=== PATIENT | female | born 1930 | race Caucasian/White ===

== ENCOUNTER → 2016-07-24 | Outpatient (CLI) | payer OTHER | LOC: FIMAGING 16:01 | DX: Z12.31 Encounter for screening mammogram for malignant neoplasm of breast (principal) | CPT/HCPCS: G0202 ==

== ENCOUNTER → 2017-03-12 | Outpatient (CLI) | payer OTHER | LOC: BMCIMAGING 13:38 | PROVIDERS: ATTEND Internal Medicine | DX: Z13.820 Encounter for screening for osteoporosis (principal); M81.0 Age-related osteoporosis without current pathological fracture ==

== ENCOUNTER 2017-04-04 07:46 | Inpatient (IN) | payer OTHER ==
[2017-04-04] MEDS ORDERED: NS 500 ML IV ONE (07:52)
[2017-04-04] MEDS ORDERED: MIDAZOLAM 2 MG/2 ML VIAL IVP ONE (07:52)
[2017-04-04] MEDS ORDERED: ATROPINE SULFATE 1 MG/10 ML SYR IVP ONE (07:52)
[2017-04-04] MEDS ORDERED: fentaNYL 100 MCG/2 ML INJ IVP ONE (07:52)
[2017-04-04] MEDS ORDERED: BENZOCAINE UNIT DOSE SPRAY HURRICAINE MM ONE (07:52)
--- NOTE | 2017-04-04 08:32 | CPEKG ---
Heart Rate: 101 RR Interval: 594 P-R Interval: 188 QRSD Interval: 86 QT Interval: 344 QTC Interval: 446 P [place]: 29 QRS [place]: 65 T Wave [place]: 27 EKG Severity - ABNORMAL ECG - EKG Impression: SINUS TACHYCARDIA EKG Impression: MULTIPLE VENTRICULAR PREMATURE COMPLEXES Electronically Signed By: Chetan Ochoa 04-Apr-2017 16:02:07
--- NOTE | 2017-04-04 09:56 | EPPROC ---
Electrophysiology Procedure Note: Pt came to [facility] in SR and hence no CV was performed. However, due to her symptoms of SOA and fatigue, she is going to be admitted to the hospital. Patient Problems: Problems Problem Status Onset Pneumonia Active
[2017-04-04 10:11] LABS: PLATELET COUNT 209 10^3/uL (150-400)
[2017-04-04 10:15] LABS: INR 4.04 (0.83-1.16); PROTIME(PATIENT) 38.9 SEC (12.0-15.0)
--- NOTE | 2017-04-04 15:47 | ECHO ---
[email or web address] [address] Main: [phone] Fax: Transthoracic Echocardiogram Name: DAWSON CREWS MR#: [id number] Study Date: 04/04/2017 Study Time: 02:11 PM Date of : 1930 Age: 86 year(s) Height: 165.1 cm (65 in.) Weight: 68.04 kg (150 lb.) BSA: 1.75 m2 Gender: Female Examination: Limited Echo Indication: Tachycardia/SVT/SOB/fatigue Image Quality: Contrast: Requested by: Agustina Ralph BP: 140 mmHg/76 mmHg Heart Rate: Rhythm: Indication: Tachycardia/SVT/SOB/fatigue Procedure Staff Psychiatric Clinician: Shavon Gomez Physician: Chetan Ochoa Requesting Provider: Conclusions: The ejection fraction is estimated to be 65-70 %. The left atrium is moderately to severely dilated. Mild to moderate mitral regurgitation. The tricuspid valve appears normal. There is pericardial fat. Measurements: Chambers Valvular Assessment AV/MV Valvular Assessment TV/PV Normal Normal Normal Name Value Range Name Value Range Name Value Range EF Range: 65-70 % AV Vmax: 1.46 m/s (1 m/s-1.7 TR Vmax: 2.79 mm/s ( - ) m/s) TR PGmax: 31 mmHg ( - ) AV maxP mmHg ( - ) syst. PAP: 36 mmHg ( - ) Continued Measurements: Chambers Valvular Assessment TV/PV Name Value Name Value LADs: 4.2 cm CVP (est.): 5 mmHg LADs Lon.2 cm LA Area: 27.8 cm2 Findings: The ejection fraction is estimated to be 65-70 %. Left Atrium: The left atrium is moderately to severely dilated. Mitral Valve: Mild to moderate mitral regurgitation. Patient: DAWSON CREWS Study Date: 04/04/2017 Page 1 of 2 02:11 PM Tricuspid Valve: The tricuspid valve appears normal. Mild tricuspid regurgitation is present. Pericardium: There is pericardial fat. (No Signature Object) Patient: DAWSON CREWS Study Date: 04/04/2017 Page 2 of 2 02:11 PM [id number]
[2017-04-04] MEDS: SALSALATE 500 MG PO SCH ×2 (16:54→22:54)
[2017-04-04] MEDS ORDERED: Propylene Glycol/Peg 400 [Systane 0.3-0.4% Eye Drops] 1 DROP OP PRN (17:29)
[2017-04-04] MEDS ORDERED: FUROSEMIDE 20 MG/2 ML VIAL IVP ONE (18:09)
--- NOTE | 2017-04-04 18:16 | SOAPPROG ---
SOAP Progress Note Assessment/Plan: Assessment: Plan: 04/04/17 18:18 fatigue--likely multifactorial. Will diurese, cover for pneumonia, follow rhythm--await further cardiology input. She doesn't seem to tolerate diltiazem all that well. She is more muddled than baseline SVT--now sinus in 90's evidence of fluid overload--add iv lasix tonight, check BNP possible pneumonia--add ceftriaxone chronic pain, prior polio--continue with stable meds Subjective: The patient really feels poorly. Fatigue is quite limiting. She is short of breath. She has developed some level of cough over the past 1-2 days. No fever /chills. She has been symptomatic with tachycardia. She feels diltiazem makes her feel poorly. She was on digoxin for a dose or two perhaps 1 week ago. Her appetite is suppressed and has some nausea. She has had more edema over the past several days. It has been difficult to get into her shoes. She was set up from CV today, but was found to be in sinus rhythm at 101 bpm and the procedure was cancelled. She has been admitted for fatigue. Objective: Vital Signs Temp Pulse Resp BP Pulse Ox 36.7 C 82 16 127/69 H 92 04/04/17 16:09 04/04/17 16:09 04/04/17 16:09 04/04/17 16:09 04/04/17 16:09 Laboratory Results 04/04/17 09:50 04/04/17 09:50 04/03/17 04/04/17 04/05/17 05:59 05:59 05:59 Intake Total 575 Balance 575 PT 38.9 SEC (12.0-15.0) H 04/04/17 09:50 INR 4.04 (0.83-1.16) H 04/04/17 09:50 Gen: pleasant, tired, weak, somewhat muddled HEENT: she looks slightly anxious Lungs: slight wheeze, mild basilar crackles Heart: currently RRR in the 90's at bedside Abd + bs, soft NT, ND LE's 2+ with stockings on CXR with basilar haziness ECHO nl LV EF, LA enlargement CBC with left shift INR 4+ ICD10 Worksheet Patient Problems: Problems Problem Status Onset Pneumonia Active
[2017-04-04] MEDS ORDERED: ACETAMINOPHEN 325 MG TAB PO PRN (18:33)
[2017-04-04] MEDS ORDERED: PROMETHAZINE HCL 25 MG/ML INJ IVP PRN (18:33)
[2017-04-04] MEDS: oxyCODONE IR 5 MG TAB PO PRN ×2 (19:01→23:49)
[2017-04-04] MEDS: ATORVASTATIN CALCIUM 40 MG TAB PO SCH (19:38)
[2017-04-04] MEDS: TOLTERODINE TARTRATE 2 MG EXT REL CAP PO SCH (19:38)
[2017-04-04] MEDS: DILTIAZEM XR 240 MG CAP PO SCH (19:39)
--- NOTE | 2017-04-04 19:43 | GHP ---
[f rep st] HISTORY AND PHYSICAL DATE OF ADMISSION: 04/04/2017 REASON FOR ADMISSION: Profound fatigue, shortness of breath, concern for pneumonia and heart failure, rhythm disturbance. HISTORY OF PRESENT ILLNESS: Patient is an 86-year-old female who has been struggling with new tachycardia dating back approximately 10 days. She was found to have SVT at the office at the rate of approximately 130 nine days ago. She was started on diltiazem without significant initial improvement. Briefly , digoxin was added. There was some rate capture. This was stopped by Cardiology. Diltiazem was increased, yet she has remained somewhat symptomatic with tachycardia, fatigue, shortness of breath, and just generally feels terrible. She was scheduled for a cardioversion procedure today, was found to be in sinus rhythm at 101 beats per minute. The procedure was canceled given fatigue and concern for other processes going on. She was admitted. She has had consultation with Dr. Jose regarding her rhythm over the past several days. She denies fever or chills. She remits to profound weakness. She has developed a cough over the past day or 2. She has reduced appetite with some nausea. No vomiting. No new pains. She denies clear evidence of palpitations. She has had an increase in swelling and has had some difficulty getting her socks on. 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 Osteoporosis, depression, some short-term memory loss. Esophagitis, nocturnal hypoxemia on chronic oxygen, urinary incontinence, diaphragmatic hernia, sporadic hypertension, atherosclerosis by heart scan. CURRENT MEDICATIONS: Diltiazem has been 240 mg twice daily increased by Cardiology most recently, limited trial of digoxin which was discontinued a few days ago. Lisinopril was previously part of her medication profile. This has been stopped due to the addition of diltiazem. Amlodipine was also discontinued , Pepcid p.r.n. heartburn. She has had complications with cataracts and is using some eyedrops, flaxseed oil, docusate sodium p.r.n. constipation, MiraLAX p.r.n. constipation, q.6 months Prolia injections, atorvastatin 40 mg daily, Flonase 1-2 sprays per nostril p.r.n. nasal congestion. Tolterodine tartrate ER 4 mg daily, pantoprazole 40 mg daily for heartburn, salicylate 750 mg 1 tab three times daily for joint pain. Vitamin D replacement. Levothyroxine 75 mcg daily. Warfarin typically 2 mg 4 days per week, 3 mg 3 days per week, aged garlic, OxyContin 10 mg twice daily, oxycodone 5 mg 1 p.o. q.4 hours p.r.n. breakthrough pain. SURGICAL HISTORY: Ankle fusion 195, previous D and C. SOCIAL HISTORY: Nonsmoker and nondrinker. Lives with with some assistance from daughter in [place]. Mother and father are . ALLERGIES: Notable for curare and pineapple. Questionable sensitivity to penicillin and cephalosporins, but daughter does not recall any specific significant reaction. REVIEW OF SYSTEMS: Significant fatigue. No fever, chills. She does have intermittent headaches. These are not new. She has had challenge with the right eye after cataract challenges. No acute dry mouth or sore throat. No ear pain. No nasal stuffiness. LUNGS: She admits to increased shortness of breath with new cough. HEART: Rhythm issues as per HPI. No chest pain. No palpitations. GI reduced appetite with nausea. No vomiting. No change in bowel pattern. No stomach pain otherwise. MUSCULOSKELETAL: Pains are stable. Post-polio weakness is also stable. Overall, cognition is acutely diminished on some sense of short-term memory loss. Her daughter supports both she and her when it comes to overall functions and financial stuff within the home. PHYSICAL EXAM: VITAL SIGNS: Blood pressure 127/69, saturation 86% on room air , 92% 2 L. Temperature maximum 37.2, current 36.7, heart rate 80s to 90s at bedside. GENERAL: Pleasant, tired female, mildly anxious and somewhat uncomfortable in appearance. HEENT: Mouth is somewhat dry. NECK: Without masses. No clear jugular venous pressure elevation. LUNGS: Some basilar crackles. Faint wheezes, intermittent mild productivity with cough. HEART: Currently regular rate and rhythm without murmur. Echocardiogram: Ejection fraction approximately 65%. Left atrial enlargement is noted. ABDOMEN: Positive bowel sounds. Soft, nontender, nondistended. No guarding, rebound, or masses. BREAST AND PELVIC: Deferred. SKIN: Warm, dry, intact. MUSCULOSKELETAL: Stable weakness/deficits/atrophy from prior polio. LOWER EXTREMITIES: With 2+ edema under compressive stockings. Chest x-ray suggestive of basilar infiltrates versus fluid overload. EKG sinus rhythm at 101 beats per minute. Bedside exam supports heart rate in the 80s to 90s. LAB RESULTS: White count 6.9, hemoglobin 11.8, platelets 209. There is a left shift with 83% neutrophils. INR 4.04. Metabolic panel, liver functions are normal. Troponin is undetectable less than 0.012. BNP is pending. Albumin low at 3.2. TSH normal at 1.7. ASSESSMENT: 1. Fatigue, shortness of breath, cough likely multifactorial, complicated by recent supraventricular tachycardia. Patient will be admitted. She will have coverage for pneumonia. We will start Rocephin 1 g daily. There is some report of potential cephalosporin intolerance, although no specific allergy is clearly noted. We will start cautiously and avoid other antibiotics that might interfere with the rhythm irregularity. We will follow her chest x-ray and symptoms. 2. Evidence of increased edema as well as suspected fluid overload. Will start with Lasix 20 mg IV tonight. We will check a BNP and reassess patient in the morning. 3. Tachycardia, currently improved. We will continue current digoxin schedule. This will likely need to be potentially changed given somewhat of a sense of intolerance to the medicine. Will await for further intervention/ recommendations from Cardiology. 4. Elevated INR and chronic anticoagulation. Will hold her Coumadin today and follow her INR and readjust based on medications and antibiotics. 5. Chronic pain, stable. Continue with OxyContin/oxycodone. 6. Short-term memory loss, acute on chronic, likely agitated from current situation. Hopefully, this will improve during her hospital course. Given multiple complexities, the patient will definitively stay more than 2 midnights. She currently has extra support from her daughter. May need more care depending on her level of progress. /[id number]/MODL MTDD
[2017-04-05] MEDS: ONDANSETRON DISINTEGRATING 4 MG TAB PO PRN ×3 (00:42→18:24)
[2017-04-05 05:12] LABS: PLATELET COUNT 240 10^3/uL (150-400)
[2017-04-05] MEDS: oxyCODONE IR 5 MG TAB PO PRN ×4 (05:16→18:24)
[2017-04-05] MEDS: LEVOTHYROXINE 75 MCG TAB PO SCH (05:21)
[2017-04-05 05:41] LABS: INR 2.2 (0.83-1.16); PROTIME(PATIENT) 24.5 SEC (12.0-15.0)
[2017-04-05] MEDS: DILTIAZEM XR 240 MG CAP PO SCH (07:54)
[2017-04-05] MEDS ORDERED: Herbals/Supplements -Info Only PO SCH (09:00)
[2017-04-05] MEDS ORDERED: AZITHROMYCIN IV 500 MG in D5W 250 ML IV ONE (09:33)
--- NOTE | 2017-04-05 09:54 | SOAPPROG ---
SOAP Progress Note Assessment/Plan: Assessment: -fatigue/sob/tachy/arrythmia- cxr w/ likely LLL pna which may have been route cause of tachyarrthymia w decompensation in medically complex and somewhat fragile patient - is on ceftriaxone and azith added now for double coverage of community acquired pna - aware of possible worsening tachy/afib/tachyarrhtymia w / abx and interference w/ INR - will watch closely and titrate as needed. Pt not tolerating diltiazem that well - thinks it may be contributing to nausea fatigue fluid - will decrease to 240 qd and add back in lisinopril 10 mg po qd as she historically has tolerated well. -BNP elev, fluid up, increased LE edema (L>R historically) - w/ dilated LA on echo, tachy arryth/afib/svt - was given 20 of lasix IV last night w/ good output , still vol up, will cont w/ daily lasix and follow i/o and cr for now. -a fib/tachy intermittent - is fully anticoag on coumadin, historically w/ h/o dvt/pe recurrent as well, on dilt for some rate control but treating underlying infection as likely etiology of tachyarrthy. 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 -dvt proph- on warfarin, re-starting this am (was high yesterday at 4.4, returned in 2's today - resume warfarin and follow w/ med changes/abx). Plan: 04/05/17 09:35 Subjective: long night 2/2 getting up to void numerous times which is extremely difficult for her to do Objective: Vital Signs Temp Pulse Resp BP Pulse Ox 37.1 C 108 H 12 156/90 H 94 04/05/17 07:01 04/05/17 07:54 04/05/17 07:01 04/05/17 07:54 04/05/17 07:01 Laboratory Results 04/05/17 04:42 04/05/17 04:42 04/04/17 04/05/17 04/06/17 05:59 05:59 05:59 Intake Total 885 Output Total 3000 Balance -2115 PT 24.5 SEC (12.0-15.0) H D 04/05/17 04:42 INR 2.20 (0.83-1.16) H 04/05/17 04:42 Rarden: pleasant female, resting in bed, tired, closes eyes from fatigue frequently , not her usual self Heent: eomi, nasal cannula in place Neck: soft/supple Abd: soft nt nd, mild mid epig pain CV: tachy rr, nl s1 s2 some pvc's LUngs: decreased bs B bases L>R Ext: 2 + edema LLE, trace to 1+ RLE (chronic asymmetry) - Pending Discharge Pending Discharge Within 24 Hours: No ICD10 Worksheet Patient Problems: Problems Problem Status Onset chronic disease mgmt/transitional care Acute Pneumonia Active
--- NOTE | 2017-04-05 10:15 | ASMTCASEMG ---
Living Arrangements What is your living Answers: With Spouse arrangement? Who do you live with? Type Of Residence What kind of residence do Answers: House you live in? Discharge Plan Comments Coordination Status Comments Notes: CM spoke w/ NAVEEN Lynch regarding d/c POC. Pt is a 86 y/o female admitted for afib and fatigue. Pt reportedly uses the bathroom 10x/night. Pt uses an electric wheelchair. Pt has a supportive and daughter. Needs are undetermined at this time. Therapies have been ordered and awaiting recommendations. CM to follow. Plan: TBD Date Signed: 04/05/2017 10:15 AM Electronically Signed By:QASIM Sanabria
[2017-04-05] MEDS: SUCRALFATE 1 GM/10 ML UDCUP PO SCH ×3 (10:20→20:01)
[2017-04-05] MEDS: LISINOPRIL 10 MG TAB PO SCH (10:22)
[2017-04-05] MEDS: DOCUSATE SODIUM 100 MG CAP PO SCH (10:24)
[2017-04-05] MEDS: POLYMYXIN B SULFATE/TMP 10 ML OPHT.BTL EACHEYE SCH (10:40)
[2017-04-05] MEDS: PRESERVISION AREDS2 FORMULA EYE VIT 1 EACH PO SCH (10:44)
[2017-04-05] MEDS: SALSALATE 500 MG PO SCH ×3 (10:44→22:07)
[2017-04-05] MEDS: FUROSEMIDE 20 MG TAB PO SCH (11:23)
[2017-04-05] MEDS: WARFARIN SODIUM 3 MG TAB PO SCH (16:45)
[2017-04-05] MEDS: POTASSIUM CL 20 MEQ/15 ML UDCUP PO SCH ×2 (16:45→20:01)
[2017-04-05] MEDS: ATORVASTATIN CALCIUM 40 MG TAB PO SCH (20:01)
[2017-04-05] MEDS: TOLTERODINE TARTRATE 2 MG EXT REL CAP PO SCH (20:01)
[2017-04-05] MEDS: ONDANSETRON 4 MG/2 ML VIAL IVP PRN (23:41)
[2017-04-06] MEDS: oxyCODONE IR 5 MG TAB PO PRN ×5 (02:05→23:52)
[2017-04-06 04:14] LABS: INR 1.86 (0.83-1.16); PROTIME(PATIENT) 21.5 SEC (12.0-15.0)
[2017-04-06] MEDS: ONDANSETRON DISINTEGRATING 4 MG TAB PO PRN ×2 (05:20→23:52)
[2017-04-06] MEDS: LEVOTHYROXINE 75 MCG TAB PO SCH (05:21)
[2017-04-06] MEDS: LISINOPRIL 10 MG TAB PO SCH (08:18)
[2017-04-06] MEDS: SALSALATE 500 MG PO SCH ×3 (08:18→19:57)
[2017-04-06] MEDS: DILTIAZEM XR 240 MG CAP PO SCH (08:19)
[2017-04-06] MEDS ORDERED: POTASSIUM CL 20 MEQ/15 ML UDCUP PO SCH (09:55)
--- NOTE | 2017-04-06 10:01 | SOAPPROG ---
JAMILAH Progress Note Assessment/Plan: Assessment: Plan: 04/04/17 18:18 fatigue--likely multifactorial. Will diurese, cover for pneumonia, follow rhythm--await further cardiology input. She doesn't seem to tolerate diltiazem all that well. She is more muddled than baseline SVT--now sinus in 90's evidence of fluid overload--add iv lasix tonight, check BNP possible pneumonia--add ceftriaxone chronic pain, prior polio--continue with stable meds 04/06/17 10:08 CHF likely due to both tachy rhythm and pna--improved. EF preserved. Diuresis has been good. pna--improved, continue current meds reflux, resume H2 esteban and add maalox change liquid potassium to tablet continue PT work Subjective: Poor sleep from reflux sx. She would rather have reflux control than a sleeping pill. In the past she was on BID PPI, this was recently changed to an H2 esteban BID with fairly good success. Breathing feels easier. Fatigue is improving. Edema is better. The catheter was helpful. Objective: Vital Signs Temp Pulse Resp BP Pulse Ox 37.2 C 95 14 107/52 L 90 L 04/06/17 07:34 04/06/17 07:34 04/06/17 07:34 04/06/17 07:34 04/06/17 07:34 Laboratory Results 04/06/17 03:46 04/06/17 03:46 04/05/17 04/06/17 04/07/17 05:59 05:59 05:59 Intake Total 885 1135 Output Total 3000 950 Balance -2115 185 PT 21.5 SEC (12.0-15.0) H 04/06/17 03:46 INR 1.86 (0.83-1.16) H 04/06/17 03:46 Gen: far brighter Lungs: better air movement Heart: RRR tele 84 and sinus ABd + bs soft, NT, ND LE's nicely reduced edema, legs softer WBC sl elevated INR slightly subtherapeutic ICD10 Worksheet Patient Problems: Problems Problem Status Onset chronic disease mgmt/transitional care Acute Pneumonia Active
[2017-04-06] MEDS: SUCRALFATE 1 GM/10 ML UDCUP PO SCH ×4 (10:28→19:54)
[2017-04-06] MEDS: POTASSIUM CL 20 MEQ/15 ML UDCUP PO SCH (10:39)
[2017-04-06] MEDS: ERGOCALCIFEROL 50,000 I.UNIT CAP PO SCH (11:23)
[2017-04-06] MEDS: FAMOTIDINE 20 MG TAB PO SCH ×2 (11:25→19:54)
[2017-04-06] MEDS: DOCUSATE SODIUM 100 MG CAP PO SCH (11:25)
[2017-04-06] MEDS: PRESERVISION AREDS2 FORMULA EYE VIT 1 EACH PO SCH (11:25)
[2017-04-06] MEDS: AZITHROMYCIN IV 250 MG in D5W 250 ML IV SCH (11:26)
[2017-04-06] MEDS: FUROSEMIDE 20 MG TAB PO SCH (11:26)
[2017-04-06] MEDS: POLYETHYLENE GLYCOL 3350 17 GM PKT PO SCH (11:26)
[2017-04-06] MEDS: POLYMYXIN B SULFATE/TMP 10 ML OPHT.BTL EACHEYE SCH (11:38)
[2017-04-06] MEDS: MAG HYDROX/AL HYDROX/SIMETH 30 ML UDCUP PO PRN ×2 (12:14→17:27)
[2017-04-06] MEDS: WARFARIN SODIUM 2 MG TAB PO SCH (16:03)
[2017-04-06] MEDS: ATORVASTATIN CALCIUM 40 MG TAB PO SCH (19:55)
[2017-04-06] MEDS: TOLTERODINE TARTRATE 2 MG EXT REL CAP PO SCH (19:55)
[2017-04-06] MEDS ORDERED: POTASSIUM CL 10 MEQ TAB PO SCH (21:00)
[2017-04-07] MEDS: LEVOTHYROXINE 75 MCG TAB PO SCH (04:00)
[2017-04-07] MEDS: oxyCODONE IR 5 MG TAB PO PRN ×2 (04:00→14:56)
[2017-04-07 04:20] LABS: PLATELET COUNT 236 10^3/uL (150-400)
[2017-04-07 04:30] LABS: INR 2.69 (0.83-1.16); PROTIME(PATIENT) 28.5 SEC (12.0-15.0)
[2017-04-07] MEDS: SUCRALFATE 1 GM/10 ML UDCUP PO SCH ×4 (07:39→20:50)
[2017-04-07] MEDS: FAMOTIDINE 20 MG TAB PO SCH ×2 (10:01→20:48)
[2017-04-07] MEDS: LISINOPRIL 10 MG TAB PO SCH (10:02)
[2017-04-07] MEDS: SALSALATE 500 MG PO SCH ×3 (10:02→20:48)
[2017-04-07] MEDS: PRESERVISION AREDS2 FORMULA EYE VIT 1 EACH PO SCH (10:02)
[2017-04-07] MEDS: DOCUSATE SODIUM 100 MG CAP PO SCH (10:03)
[2017-04-07] MEDS: DILTIAZEM XR 240 MG CAP PO SCH (10:03)
[2017-04-07] MEDS: AZITHROMYCIN IV 250 MG in D5W 250 ML IV SCH (10:04)
[2017-04-07] MEDS: POLYMYXIN B SULFATE/TMP 10 ML OPHT.BTL EACHEYE SCH (10:19)
[2017-04-07] MEDS ORDERED: BISACODYL 10 MG SUPP PR PRN (10:57)
[2017-04-07] MEDS ORDERED: LACTULOSE 20 GM/30 ML UDCUP PO PRN (10:57)
[2017-04-07] MEDS ORDERED: POLYETHYLENE GLYCOL 3350 17 GM PKT PO PRN (10:57)
[2017-04-07] MEDS ORDERED: MAGNESIUM HYDROXIDE 30 ML UDCUP PO PRN (10:57)
--- NOTE | 2017-04-07 11:16 | SOAPPROG ---
SOCALVIN Progress Note Assessment/Plan: Assessment: -fatigue/sob/tachy/arrythmia- cxr w/ likely LLL pna which may have been route cause of tachyarrthymia w decompensation in medically complex and somewhat fragile patient - is on ceftriaxone and azith added now for double coverage of community acquired pna - aware of possible worsening tachy/afib/tachyarrhtymia w / abx and interference w/ INR - will watch closely and titrate as needed. Pt not tolerating diltiazem that well - thinks it may be contributing to nausea fatigue fluid - will decrease to 240 qd and add back in lisinopril 10 mg po qd as she historically has tolerated well. -BNP elev, fluid up, increased LE edema (L>R historically) - w/ dilated LA on echo, tachy arryth/afib/svt - was given 20 of lasix IV last night w/ good output , still vol up, will cont w/ daily lasix and follow i/o and cr for now. -a fib/tachy intermittent - is fully anticoag on coumadin, historically w/ h/o dvt/pe recurrent as well, on dilt for some rate control but treating underlying infection as likely etiology of tachyarrthy. 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 -dvt proph- on warfarin, re-starting this am (was high yesterday at 4.4, returned in 2's today - resume warfarin and follow w/ med changes/abx). Plan: 04/05/17 09:35 04/07/17 11:09 LLL PNA/fatigue/tachyarrhtymia - greatly improved. Energy better, enthusiasm back up - cxr c/w most likely LLL PNA which is probably the cause of her decompensation and afib/svt, has now had appropriate rhthym/rate. Will d/c diltiazem and start back on amlodipine which she tolerates better historically, re-started lisinopril 2 days ago. BP soft yesterday, watching this w/ adjustment of meds. Will change IV ceftriaxone and IV azith to po ceftin/azith in preparation for d/c. -fluid status now euvolemic, NA low 2/2 diuresis - stopped lasix today (and potassium), stopping IV meds now. D/C cerrato. -esophagitis/reflux - much better now w/ H2 esteban/maalox, slept much better last night. 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 watch w/ azith. -dispo - will assess strength further today, she desires to go home - appreciated pt/ot input, will need temporary home health/pt services most likely. Hoping is sodium improved and pt stronger today/tomorrow to be able to d /c home tomorrow. Subjective: Feeling much better! Appetite back. Would like to have a BM. Objective: Vital Signs Temp Pulse Resp BP Pulse Ox 36.8 C 81 14 101/51 L 95 04/07/17 07:28 04/07/17 07:28 04/07/17 07:28 04/07/17 07:28 04/07/17 07:28 Laboratory Results 04/07/17 03:56 04/07/17 03:56 04/06/17 04/07/17 04/08/17 05:59 05:59 05:59 Intake Total 1135 2440 240 Output Total 950 700 Balance 185 1740 240 PT 28.5 SEC (12.0-15.0) H 04/07/17 03:56 INR 2.69 (0.83-1.16) H 04/07/17 03:56 Gen: A&O, brighter affect, already had breakfast Heent: eomi, nasal cannula Chest: rhonchi cleared w/ cough CV: rrr Abd: soft nt nd +BS Ext: greatly improved - trace edema, wearing stockings - Pending Discharge Pending Discharge Within 24 Hours: Yes Pending Discharge Date: 04/08/17 Pending Discharge Time: 11:00 ICD10 Worksheet Patient Problems: Problems Problem Status Onset chronic disease mgmt/transitional care Acute Pneumonia Active
[2017-04-07] MEDS: CEFUROXIME AXETIL 250 MG TAB PO SCH ×2 (13:12→20:49)
[2017-04-07] MEDS: WARFARIN SODIUM 3 MG TAB PO SCH (14:57)
[2017-04-07] MEDS ORDERED: NS 250 ML IV ONE (15:00)
--- NOTE | 2017-04-07 15:34 | ASMTCMCOM ---
CM Note CM Note Notes: Reviewed chart regarding discharge plan, pt's progress. Pt w/ supportive and dghtr. PT recommends HC w/ 24 hr supervision (only if family is able to help), otherwise SNF. OT recommends HC w/ 24 hr supervision vs SNF; OT notes state pt is adamantly refusing SNF. CM will need to discuss options w/ pt and family. CM will cont to follow. Current discharge plan: Home w/ home care (agency to be determined) and 24 hr supervision Date Signed: 04/07/2017 03:34 PM Electronically Signed By:Ayala Saez RN
--- NOTE | 2017-04-07 16:22 | ASMTCMCOM ---
CM Note CM Note Notes: Chart reviewed, Met with patient and her daughter. She wants to go home with home care. Her house is already adapted to her current needs. She reports she has good support form her and daughter as well as friends and nearby neighbors. She is amenable to HHC and has used [facility] in the past. Call to Lou at [facility] who states they can accommodate patietnt's need for PT and RN. CM to follow. Date Signed: 04/07/2017 04:22 PM Electronically Signed By:Alaina Roque RN
[2017-04-07] MEDS: ATORVASTATIN CALCIUM 40 MG TAB PO SCH (20:48)
[2017-04-07] MEDS: SENNOSIDES/DOCUSATE SODIUM TAB PO SCH (20:49)
[2017-04-07] MEDS: TOLTERODINE TARTRATE 2 MG EXT REL CAP PO SCH (20:49)
[2017-04-07] MEDS: ONDANSETRON 4 MG/2 ML VIAL IVP PRN (20:54)
[2017-04-07] MEDS: MAG HYDROX/AL HYDROX/SIMETH 30 ML UDCUP PO PRN (22:43)
[2017-04-08] MEDS: oxyCODONE IR 5 MG TAB PO PRN ×4 (01:46→23:57)
[2017-04-08 04:40] LABS: INR 3.9 (0.83-1.16); PROTIME(PATIENT) 37.9 SEC (12.0-15.0)
[2017-04-08] MEDS: LEVOTHYROXINE 75 MCG TAB PO SCH (06:28)
[2017-04-08] MEDS: SUCRALFATE 1 GM/10 ML UDCUP PO SCH ×4 (08:32→20:43)
[2017-04-08] MEDS: SENNOSIDES/DOCUSATE SODIUM TAB PO SCH ×2 (09:00→20:44)
--- NOTE | 2017-04-08 09:16 | SOAPPROG ---
JAMILAH Progress Note Assessment/Plan: Assessment: Plan: 04/08/17 09:16 Pneumonia: doing much better. Feels strong enough to go home with home health care. Would like to have BM before she leaves, so will check in with her later today. Anticipate d/c later today. Will go home on PO azithromycin and cefuroxime. Constipation: will be getting suppository and miralax this morning. No abdominal discomfort GERD: symptomatic last night, but much improved with maalox SVT: has remained in SR Hyponatremia: Na 127 this morning, up from 126 yesterday. Lasix discontinued, so expect this to continue to improve off lasix. Hx DVT, on coumadin: INR up this morning to 3.9, so will hold coumadin today. 04/08/17 09:19 04/08/17 09:20 Subjective: Cheerful, eating breakfast. Still hasn't had BM since coming into hospital. Also had some problems with reflux last night, helped by maalox. Overall feeling much better. Objective: Vital Signs Temp Pulse Resp BP Pulse Ox 36.9 C 89 15 116/57 L 97 04/08/17 07:41 04/08/17 07:41 04/08/17 07:41 04/08/17 07:41 04/08/17 07:41 Laboratory Results 04/07/17 03:56 04/08/17 03:40 04/07/17 04/08/17 04/09/17 05:59 05:59 05:59 Intake Total 2440 2540 Output Total 1450 1250 120 Balance 990 1290 -120 PT 37.9 SEC (12.0-15.0) H D 04/08/17 03:40 INR 3.90 (0.83-1.16) H 04/08/17 03:40 General: cheerful, eating breakfast Neck: no masses, adenopathy Lungs: rhonchi, especially L mid lung CV: RRR Abdomen: +bowel sounds, soft, NT Extremities: mild edema LLE, none RLE ICD10 Worksheet Patient Problems: Problems Problem Status Onset chronic disease mgmt/transitional care Acute Pneumonia Active
[2017-04-08] MEDS: SALSALATE 500 MG PO SCH ×3 (09:43→23:53)
[2017-04-08] MEDS: CEFUROXIME AXETIL 250 MG TAB PO SCH ×2 (09:45→20:44)
[2017-04-08] MEDS: DOCUSATE SODIUM 100 MG CAP PO SCH (09:46)
[2017-04-08] MEDS: PRESERVISION AREDS2 FORMULA EYE VIT 1 EACH PO SCH (09:47)
[2017-04-08] MEDS: ERGOCALCIFEROL 50,000 I.UNIT CAP PO SCH (09:47)
[2017-04-08] MEDS: AZITHROMYCIN 250 MG TAB PO SCH (09:48)
[2017-04-08] MEDS: FAMOTIDINE 20 MG TAB PO SCH ×2 (09:48→20:44)
[2017-04-08] MEDS: amLODIPine BESYLATE 5 MG TAB PO SCH (09:53)
[2017-04-08] MEDS: LISINOPRIL 10 MG TAB PO SCH (09:53)
[2017-04-08] MEDS: ONDANSETRON 4 MG/2 ML VIAL IVP PRN (10:57)
[2017-04-08] MEDS: POLYMYXIN B SULFATE/TMP 10 ML OPHT.BTL EACHEYE SCH (18:14)
[2017-04-08] MEDS: WARFARIN SODIUM 2 MG TAB PO SCH (18:31)
[2017-04-08] MEDS: POLYETHYLENE GLYCOL 3350 17 GM PKT PO SCH (20:42)
[2017-04-08] MEDS: TOLTERODINE TARTRATE 2 MG EXT REL CAP PO SCH (20:43)
[2017-04-08] MEDS: ATORVASTATIN CALCIUM 40 MG TAB PO SCH (20:43)
[2017-04-09 04:38] LABS: INR 4.23 (0.83-1.16); PROTIME(PATIENT) 40.3 SEC (12.0-15.0)
[2017-04-09] MEDS: SUCRALFATE 1 GM/10 ML UDCUP PO SCH ×2 (05:49→12:00)
[2017-04-09] MEDS: oxyCODONE IR 5 MG TAB PO PRN ×2 (05:49→13:01)
[2017-04-09] MEDS: LEVOTHYROXINE 75 MCG TAB PO SCH (05:52)
--- NOTE | 2017-04-09 07:03 | PDIAF ---
- Diagnosis Diagnosis: pneumonia, weakness, fatigue Code Status: Full Code - Medication Management Discharge Medications: Medications to Continue on Transfer Levothyroxine [Synthroid 75 mcg (*)] 75 mcg PO DAILY06 04/04/12 [Last Taken 07/17 00:00] Polymyxin B Sulfate/Tmp [Polytrim Opht Drops (*)] 1 drops EACHEYE DAILY [Last Taken 04/04/17] Salsalate 750 mg PO TID 04/04/12 [Last Taken 04/03/17 20:00] oxyCODONE CR [Oxycontin] 10 mg PO BID 04/04/12 [Last Taken 04/03/17 20:00] Atorvastatin Calcium [Lipitor 40 mg (*)] 40 mg PO HS 04/04/17 [Last Taken ] C/E/Zn/Cu/OM3/DHA/EPA/LUT/ZEAX [Preservision Areds 2 Softgel] 1 each PO DAILY [Last Taken Unknown] Denosumab [Prolia] 60 mg SQ .H2HEARUB 04/04/17 [Last Taken 03/26/17] Docusate Sodium [Colace 100 MG (*)] 100 mg PO DAILY 04/04/17 [Last Taken Unknown ] Ergocalciferol [Vitamin D2 (*)] 50,000 unit PO Q2D 04/04/17 [Last Taken 03/23/17 ] Herbals/Supplements -Info Only 1 each PO DAILY 04/04/17 [Last Taken Unknown] Polyethylene Glycol 3350 [Miralax 17 gm (*)] 17 gm PO Q2D 04/04/17 [Last Taken 04/02/17] Propylene Glycol/Peg 400 [SYSTANE 0.3-0.4% EYE DROPS] 1 drop OP DAILY PRN [Last Taken Unknown] Tolterodine Tartrate [Detrol LA 2MG (*)] 4 mg PO HS 04/04/17 [Last Taken ] Warfarin Sodium [Coumadin 2MG (*)] 2 mg PO Q2D@16 04/04/17 [Last Taken 04/03/17] Warfarin Sodium [Coumadin 3MG (*)] 3 mg PO Q2D@16 04/04/17 [Last Taken 04/02/17] oxyCODONE IR [Oxycodone Ir (*)] 5 mg PO Q4-6PRN PRN 04/04/17 [Last Taken 16:00] Azithromycin [Zithromax] 250 mg PO DAILY 1 Days #1 tab 04/09/17 [Last Taken Unknown] C/E/Zn/Cu/OM3/DHA/EPA/LUT/ZEAX [Preservision Areds 2 Softgel] 1 each PO DAILY cap 04/09/17 [Last Taken Unknown] Cefuroxime Axetil [Ceftin (*)] 250 mg PO BID 2 Days tab 04/09/17 [Last Taken Unknown] Famotidine [Pepcid 20 MG (*)] 20 mg PO BID tab 04/09/17 [Last Taken Unknown] Lisinopril [Zestril 10 mg (*)] 10 mg PO DAILY tab 04/09/17 [Last Taken Unknown] amLODIPine BESYLATE [Norvasc 5 mg (*)] 5 mg PO DAILY tab 04/09/17 [Last Taken Unknown] Usp Antibiotics: she has one more day of azithromycin, 3 more tabs of ceftin to take Discharge Medications: Refer to the Discharge Home Medication list for PRN reason. - Orders Services needed: Home Care, Physical Therapy Home Care Face to Face: I certify that this patient was under my care and that I had the required [id number] encounter meeting the encounter requirements on the discharge day. My findings support the fact that the patient is homebound as defined in Home Care Face to Face Continued: CMS Chapter 7 Medicare Benefits Manual 30.1.1 , The condition of the patient is such that there exists a normal inability to leave home and consequently, leaving home would require a considerable and taxing effort. Diet Recommendation: no restrictions on diet Diet Texture: Regular Texture Diet - Follow Up Care Current Providers and Referrals: Agustina Ralph MD [Primary Care Provider] -
[2017-04-09 07:32] VITALS: BP 105/57; PULSE 95; RESP 16; TEMP 97.8; O2SAT 90
[2017-04-09] MEDS: LISINOPRIL 10 MG TAB PO SCH (07:37)
[2017-04-09] MEDS: PRESERVISION AREDS2 FORMULA EYE VIT 1 EACH PO SCH (07:37)
[2017-04-09] MEDS: SENNOSIDES/DOCUSATE SODIUM TAB PO SCH (07:37)
[2017-04-09] MEDS: DOCUSATE SODIUM 100 MG CAP PO SCH (07:38)
[2017-04-09] MEDS: FAMOTIDINE 20 MG TAB PO SCH (07:38)
[2017-04-09] MEDS: amLODIPine BESYLATE 5 MG TAB PO SCH (07:38)
[2017-04-09] MEDS: AZITHROMYCIN 250 MG TAB PO SCH (07:38)
[2017-04-09] MEDS: SALSALATE 500 MG PO SCH (07:38)
[2017-04-09] MEDS: CEFUROXIME AXETIL 250 MG TAB PO SCH (07:38)
[2017-04-09] MEDS: ERGOCALCIFEROL 50,000 I.UNIT CAP PO SCH (07:38)
[2017-04-09] MEDS: POLYETHYLENE GLYCOL 3350 17 GM PKT PO SCH (07:39)
[2017-04-09] MEDS: POLYMYXIN B SULFATE/TMP 10 ML OPHT.BTL EACHEYE SCH (08:07)
--- NOTE | 2017-04-09 09:34 | SOAPPROG ---
[facility] Progress Note Assessment/Plan: Assessment: -fatigue/sob/tachy/arrythmia- cxr w/ likely LLL pna which may have been route cause of tachyarrthymia w decompensation in medically complex and somewhat fragile patient - is on ceftriaxone and azith added now for double coverage of community acquired pna - aware of possible worsening tachy/afib/tachyarrhtymia w / abx and interference w/ INR - will watch closely and titrate as needed. Pt not tolerating diltiazem that well - thinks it may be contributing to nausea fatigue fluid - will decrease to 240 qd and add back in lisinopril 10 mg po qd as she historically has tolerated well. -BNP elev, fluid up, increased LE edema (L>R historically) - w/ dilated LA on echo, tachy arryth/afib/svt - was given 20 of lasix IV last night w/ good output , still vol up, will cont w/ daily lasix and follow i/o and cr for now. -a fib/tachy intermittent - is fully anticoag on coumadin, historically w/ h/o dvt/pe recurrent as well, on dilt for some rate control but treating underlying infection as likely etiology of tachyarrthy. 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 -dvt proph- on warfarin, re-starting this am (was high yesterday at 4.4, returned in 2's today - resume warfarin and follow w/ med changes/abx). Plan: 04/05/17 09:35 04/07/17 11:09 LLL PNA/fatigue/tachyarrhtymia - greatly improved. Energy better, enthusiasm back up - cxr c/w most likely LLL PNA which is probably the cause of her decompensation and afib/svt, has now had appropriate rhthym/rate. Will d/c diltiazem and start back on amlodipine which she tolerates better historically, re-started lisinopril 2 days ago. BP soft yesterday, watching this w/ adjustment of meds. Will change IV ceftriaxone and IV azith to po ceftin/azith in preparation for d/c. -fluid status now euvolemic, NA low 2/2 diuresis - stopped lasix today (and potassium), stopping IV meds now. D/C cerrato. -esophagitis/reflux - much better now w/ H2 esteban/maalox, slept much better last night. 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 watch w/ azith. -dispo - will assess strength further today, she desires to go home - appreciated pt/ot input, will need temporary home health/pt services most likely. Hoping is sodium improved and pt stronger today/tomorrow to be able to d /c home tomorrow. 04/09/17 09:28 LLL PNA - doing much better, wants to go home! Needs one more day of azithromycin, 3 more doses of ceftin - sent to her usual [facility] pharmacy that delivers and it will be at her house this afternoon. She has oxygen already at home from prior to admission. -SVT/Afib - resolved w/ treating of underlying infection. She is back on lisinopril and amlodipine which are her usual meds, and stopped diltiazem which she didn't tolerate well. -acute CHF 2/2 to tachycardia/afib from infection - she responded well to diuresis. -esophagitis - cont on bid H2 esteban, maalox prn -constipation - no relief yet - would like BM prior to dc/ will as RN re: enema this am please, pt requesting this, xrays c/w constipation last night. -h/o dvt/pe/paf this admission - cont on warfarin but hold today due to elevated INR (2/2 azithromycin most likely). Will f/u in clinic. Resume tomorrow. Last dose of azithromycin is tomorrow. -hyponatremia - resolving well - was 2/2 diuresis. now 131. dispo - home today after bm w/ HH and P.T. pt refuses SNF/rehab but accepts HH and P.T. Dtr and spouse will be helping w/ her care at home. 04/09/17 09:34 Subjective: Doing much better, wants to go home, but wants to have a BM, requesting an enema this am. Objective: Vital Signs Temp Pulse Resp BP Pulse Ox 36.6 C 95 16 105/57 L 90 L 04/09/17 07:30 04/09/17 07:30 04/09/17 07:30 04/09/17 07:30 04/09/17 07:30 Laboratory Results 04/07/17 03:56 04/09/17 07:15 04/08/17 04/09/17 04/10/17 05:59 05:59 05:59 Intake Total 2540 350 Output Total 1250 120 Balance 1290 230 PT 40.3 SEC (12.0-15.0) H 04/09/17 04:13 INR 4.23 (0.83-1.16) H 04/09/17 04:13 Gen: pleasant, alert, oriented, in good spirits Heent: eomi Chest: slightly decreased bs L>R CV: rrr nl s1 s2 Abd: distended 2/2 constipation, nl bs Ext: 1+ edema LLE, trace R (chronic 2/2 post polio and brace on LLE) ICD10 Worksheet Patient Problems: Problems Problem Status Onset chronic disease mgmt/transitional care Acute Pneumonia Active
[2017-04-09] MEDS: ONDANSETRON DISINTEGRATING 4 MG TAB PO PRN (12:20)
--- NOTE | 2017-04-09 15:31 | GDS ---
[f rep st] DISCHARGE SUMMARY ADMITTING DIAGNOSIS: Tachycardia, fatigue, atrial fibrillation, and pneumonia. HOSPITAL COURSE: The patient is a pleasant 86-year-old female with a history of hypertension, post-p olio syndrome, who had been having significant tachycardia, SVT and possible atrial fibrillation for a week or so prior to admission. She had been titrated on diltiazem and 1 dose of digoxin to try to c ontrol this. She was sent to Cardiology and at that time, she had resumed back into sinus rhythm. She was doing better but then she got worse again, and she was sent to Cardiology for a possible cardiov ersion; however, upon presentation for this, she was back in sinus rhythm, although still fatigued an d not feeling well with a presumed underlying infection. She was admitted for further workup of this and evaluation with a question of possible left lower lobe pneumonia on chest x-ray and profound weak ness. During the course of her hospitalization, her presentation became more clear, and she did have clearly a left lower lobe pneumonia. She was treated as community-acquired pneumonia requiring hospit alization with Ceftin and azithromycin. She rapidly improved. Her paroxysmal atrial fibrillation and tachycardia resolved. She was taken back off her diltiazem which she did not tolerate well, it made h er not feel great. Placed on her usual lisinopril and amlodipine. She worked with PT and OT, and her strength resumed back to close to her usual level. Also she had mild heart failure secondary to her t achycardia and atrial fibrillation which was treated with diuresis which she tolerated well and her s ymptoms improved and her edema decreased back down to her trace baseline left lower extremity seconda ry to post-polio with her leg in a brace. The diuresis did lead to hyponatremia which resolved with s topping her Lasix once her fluid status became euvolemic. Her INR was slightly elevated secondary to likely interaction with azithromycin which was adjusted and being held on day of discharge for 1 day and she will resume it tomorrow. She has 1 more day of azithromycin and 3 more doses of Ceftin to rain castillo as an outpatient which will be sent to her outpatient pharmacy, [facility], who delivers it to her ho use and it will be there this afternoon. She also has had constipation during her hospitalization, and she is being given an additional enema this morning prior to discharge to make sure that she can move her bowels before she goes home. DISCHARGE MEDICATIONS: Include Prolia once every 6 months; vitamin D2; Systane eyedrops; Colace p.r. n.; PreserVision AREDS 2 soft gels; polymyxin B/trimethoprim eyedrops; MiraLAX 17 g every other day; Synthroid 75 mcg daily; warfarin 3 mg alternating with 2 mg; Detrol LA 2 mg q.h.s.; salsalate 750 mg p.o. t.i.d.; atorvastatin 40 mg q.h.s.; OxyIR 5 mg p.o. q.4-6 hours p.r.n.; OxyContin 10 mg p.o. b.i. d.; amlodipine 5 mg daily; lisinopril 10 mg p.o. t.i.d.; Pepcid 20 mg p.o. b.i.d.; Ceftin 250 mg 1 d ose tonight and 2 doses tomorrow, 1 in the evening and 1 in the morning; azithromycin 1 further dose tomorrow morning of 250 mg. /[id number]/MODL
--- NOTE | 2017-04-09 17:33 | ASDISCHSUM ---
Discharge Information Plan Status:Home with Home Health Medically Cleared to Leave:04/01/2017 Discharge Date:04/09/2017 04:54 PM CM D/C Disposition:Home Health Service ADT D/C Disposition:Home Health Service Projected Discharge Date:04/09/2017 11:00 AM Transportation at D/C:Family Discharge Delay Reason: Follow-Up Date:04/09/2017 11:00 AM Discharge Slot: Final Diagnosis: Placement Information Referral Type:*Home Health Care Services Referral ID:[id number] Provider Name:[facility] Address 1:[address] [place] [address] Address 2: City:[place] Selection Factors: State:[place] Patient Contact Information Contact Name:NOEL Relationship: Address:[address] Work Phone: City:[place] Alternate Phone: State/Zip Code:[place] [address] Email: Financial Information Financial Class: Primary Plan Desc:MEDICARE INPATIENT Primary Plan Number:[id number] Secondary Plan Desc:[facility] Secondary Plan Number:[id number] Assessment Information [facility] Initial CM Assessment Living Arrangements What is your living Answers: With Spouse arrangement? Who do you live with? Type Of Residence What kind of residence do Answers: House you live in? Discharge Plan Comments Coordination Status Comments Notes: CM spoke w/ NAVEEN Lynch regarding d/c POC. Pt is a 86 y/o female admitted for afib and fatigue. Pt reportedly uses the bathroom 10x/night. Pt uses an electric wheelchair. Pt has a supportive and daughter. Needs are undetermined at this time. Therapies have been ordered and awaiting recommendations. CM to follow. Plan: TBD Date Signed: 04/05/2017 10:15 AM Electronically Signed By:QASIM Sanabria [facility] CM Progress Note CM Note CM Note Notes: Reviewed chart regarding discharge plan, pt's progress. Pt w/ supportive and dghtr. PT recommends HC w/ 24 hr supervision (only if family is able to help), otherwise SNF. OT recommends HC w/ 24 hr supervision vs SNF; OT notes state pt is adamantly refusing SNF. CM will need to discuss options w/ pt and family. CM will cont to follow. Current discharge plan: Home w/ home care (agency to be determined) and 24 hr supervision Date Signed: 04/07/2017 03:34 PM Electronically Signed By:Ayala Saez RN [facility] CM Progress Note CM Note CM Note Notes: Chart reviewed, Met with patient and her daughter. She wants to go home with home care. Her house is already adapted to her current needs. She reports she has good support form her and daughter as well as friends and nearby neighbors. She is amenable to [facility] and has used [facility] in the past. Call to Lou at [facility] who states they can accommodate patiadriannant's need for PT and RN. CM to follow. Date Signed: 04/07/2017 04:22 PM Electronically Signed By:Alaina Roque RN [facility] Length of stay for Answers: 4-6 days current admission Acuity / Level of Care Answers: No. Comorbidities - select Answers: Cerebrovascular disease all that apply Connective tissue disease Emergency dept visits in Answers: 0 last 6 months Score: 8 Date Signed: 04/09/2017 10:12 AM Electronically Signed By:Karen Venegas RN Case Management Discharge Plan Note Case Management Discharge Discharge Order Complete? Answers: Yes Patient to Obtain Answers: via Family Medications Transportation Arranged Answers: Family/Friends Faxed Final Orders Answers: Yes Agency/Facility Transfer Answers: Yes Report Printed & Faxed to Receiving Agency Family Notified Answers: Yes Discharge Comments Notes: 04/09/2017 Case Management Note Pt d/c home with [facility] services. Pt is followed by Dr. Guillory and Dr. Mendez. Date Signed: 04/09/2017 10:14 AM Electronically Signed By:Karen Venegas RN Intervention Information Intervention Type:*OQUENDO-Signed Date of Service:04/05/2017 10:31 AM Patient Type:Inpatient Staff Member:Fatou Balbuena Hours: Discipline: Severity: Comment: Intervention Type:*IM-Signed Date of Service:04/09/2017 02:11 PM Patient Type:Inpatient Staff Member:Fatou Balbuena Hours: Discipline: Severity: Comment:
== END 2017-04-09 16:54 | disposition home health service (06) | DRG 194 ==
LOC: FCATH 07:46 → F2W 09:24 → OBSVTOIN 18:33
PROVIDERS: ADMIT Internal Medicine Cardiovascular Disease; ATTEND Internal Medicine
DX: J18.9 Pneumonia, unspecified organism (principal); I50.9 Heart failure, unspecified; I48.0 Paroxysmal atrial fibrillation; E87.1 Hypo-osmolality and hyponatremia; K59.00 Constipation, unspecified; K20.9 Esophagitis, unspecified; R09.02 Hypoxemia; Z53.09 Procedure and treatment not carried out because of other contraindication; E03.9 Hypothyroidism, unspecified; G14 Postpolio syndrome; G89.29 Other chronic pain; Z79.01 Long term (current) use of anticoagulants; Z99.81 Dependence on supplemental oxygen; Z98.1 Arthrodesis status; Z86.718 Personal history of other venous thrombosis and embolism; Z86.711 Personal history of pulmonary embolism
CPT/HCPCS: 97110-GP; 97162-GP; 97166-GO; 97530-GO; 97530-GP; 97535-GO; G8978-GP-CL; G8979-GP-CJ; G8987-GO-CI; G8988-GO-CJ; J0456; J0696; J1940; J2405; J2550

== ENCOUNTER 2017-04-11 13:10 | Inpatient (IN) | payer OTHER ==
--- NOTE | 2017-04-11 13:45 | EDPHY ---
H & P Stated Complaint: dc from hospital 2 days ago with pna/having prob with constipation/nausea Time Seen by Provider: 04/11/17 13:44 HPI/ROS: CHIEF COMPLAINT: Vomiting, tachycardia, weakness HISTORY OF PRESENT ILLNESS: The patient presents to the ED with vomiting, tachycardia and weakness. The patient was discharged from the emergency department 2 days ago. She was in the hospital with constipation, pneumonia and variable tachycardia. The patient was discharged home in a normal sinus rhythm off. The patient was diagnosed with pneumonia during her hospitalization. She was started on antibiotics. The patient arrives to the emergency department with a heart rate of 180 and blood pressure of 60/40. REVIEW OF SYSTEMS: A comprehensive 10 point review of systems is otherwise negative aside from elements mentioned in the history of present illness. Source: Patient - Personal History Current Tetanus/Diphtheria Vaccine: Yes Tetanus Vaccine Date: 2008 - Medical/Surgical History Hx Asthma: No Hx Chronic Respiratory Disease: No Hx Diabetes: No Hx Cardiac Disease: Yes Hx Renal Disease: No Hx Cirrhosis: No Hx Alcoholism: No Hx HIV/AIDS: No Hx Splenectomy or Spleen Trauma: No Other PMH: Atrial fibrillation, HTN, hypothyroidism, dyslipidemia, polio, fractured L4 with kyphoplasty, osteoporosis, PNA - Social History Smoking Status: Never smoked - Physical Exam Exam: General Appearance: Ill-appearing, diaphoretic, pale, vomiting Eyes: Pupils equal and round no pallor or injection ENT, Mouth: Mucous membranes moist Respiratory: There are no retractions, lungs are clear to auscultation Cardiovascular: Tachycardic, rate 188 Gastrointestinal: Distended, no peritoneal signs Neurological: A&O, normal motor function, normal sensory exam, normal cranial nerves Skin: Warm and dry, no rashes Musculoskeletal: Neck is supple nontender Extremities: symmetrical, full range of motion Constitutional: Initial Vital Signs Temperature (C) 36.8 C 04/11/17 13:22 Heart Rate 112 H 04/11/17 13:22 Respiratory Rate 22 H 04/11/17 13:22 Blood Pressure 148/96 H 04/11/17 13:22 O2 Sat (%) 86 L 04/11/17 13:22 O2 Delivery Mode Nasal Cannula O2 (L/minute) 4 Allergies/Adverse Reactions: CURARE Allergy (Uncoded 04/11/17 13:17) PINEAPPLE Allergy (Uncoded 04/11/17 13:17) Home Medications: Medication Instructions Recorded Levothyroxine [Synthroid 75 mcg 75 mcg PO DAILY06 04/04/12 (*)] Polymyxin B Sulfate/Tmp [Polytrim 1 drops EACHEYE DAILY 04/04/12 Opht Drops (*)] Salsalate 750 mg PO TID 04/04/12 oxyCODONE CR [Oxycontin] 10 mg PO BID 04/04/12 Atorvastatin Calcium [Lipitor 40 40 mg PO HS 04/04/17 mg (*)] C/E/Zn/Cu/OM3/DHA/EPA/LUT/ZEAX 1 each PO DAILY 04/04/17 [Preservision Areds 2 Softgel] Denosumab [Prolia] 60 mg SQ .[id number] 04/04/17 Docusate Sodium [Colace 100 MG (*)] 100 mg PO DAILY 04/04/17 Ergocalciferol [Vitamin D2 (*)] 50,000 unit PO Q14D 04/04/17 Herbals/Supplements -Info Only 1 each PO DAILY 04/04/17 Polyethylene Glycol 3350 [Miralax 17 gm PO Q2D 04/04/17 17 gm (*)] Propylene Glycol/Peg 400 [SYSTANE 1 drop OP DAILY PRN 04/04/17 0.3-0.4% EYE DROPS] Tolterodine Tartrate [Detrol LA 4 mg PO HS 04/04/17 2MG (*)] Warfarin Sodium [Coumadin 2MG (*)] 2 mg PO Q2D@16 04/04/17 Warfarin Sodium [Coumadin 3MG (*)] 3 mg PO Q2D@16 04/04/17 oxyCODONE IR [Oxycodone Ir (*)] 5 mg PO Q4-6PRN PRN 04/04/17 Famotidine [Pepcid 20 MG (*)] 20 mg PO BID tab 04/09/17 Lisinopril [Zestril 10 mg (*)] 10 mg PO DAILY tab 04/09/17 amLODIPine BESYLATE [Norvasc 5 mg 5 mg PO DAILY tab 04/09/17 (*)] Medical Decision Making - Diagnostics EKG Interpretation: EKG: Complete interpretation has been separately recorded in the [facility] archive. Summary impression: Atrial fibrillation with rate 188 Imaging Results: Imaging Impressions Chest X-Ray 04/11/17 14:16 Impression: 1. Decreased lung volumes with increased peribronchial thickening and left basilar consolidation, with new right basilar opacities, possibly representing worsening pneumonia, atelectasis, and/or pulmonary edema. 2. Additional findings as above. KUB: Images reviewed by myself. Formal interpretation by Radiology pending. Impression no obvious perforation or obstruction, severe constipation noted. Procedures: Procedure: Electrical cardioversion. Indication: Unstable arrhythmia. Risks, benefits, alternatives discussed with the patient and consent obtained. The patient was on a continuous threat monitoring analyst, with airway equipment at the bedside. The patient was on continuous pulse oximetry. The cardioversion was performed with 50 joules biphasic current. The cardioversion was successful. The patient tolerated the procedure well with no complications. The procedure was performed by myself. ED Course/Re-evaluation: ED COURSE: The patient presents to the ED with acute tachycardia and hypotension. I was called to see the patient immediately upon arrival. Nursing staff was unable to obtain IV access. Using ultrasound guidance I was able to establish bilateral antecubital IVs. The patient received 2 L of IV fluid rehydration. She had transient improvement of her blood pressure. She was moved to the resuscitation room. Upon arrival to the resuscitation room. The patient was given 10 mg of diltiazem as her pressure had improved somewhat. Following this intervention there was no significant improvement of the patient' s tachycardia and she became hypotensive pale and nauseous. The patient was verbally consented to undergo emergent cardioversion. She received sedation with 35 mg of ketamine. The patient was cardioverted into a normal sinus rhythm with a single 50 joule shock. The patient continued to be aggressively rehydrated. The patient's blood pressure has improved following her cardioversion. Her case was discussed with her primary care physician Dr. Agustina Ralph. She will be admitted to the ICU. 3:30 p.m.: The patient is transferred to the ICU in stable condition. Differential Diagnosis: Differential diagnosis considered includes atrial fibrillation, ventricular tachycardia, heart failure, myocardial infarction, bowel obstruction, worsening pneumonia, congestive heart failure. Critical Care Time: Critical care time exclusive of procedures and exclusive of the PA's time was 55 minutes, performed by myself, Vishal Humphreys MD. The patient presented to the ED with hypotension, tachycardia and poor perfusion. She required emergent cardioversion and her aggressive fluid rehydration. The patient will be admitted to the intensive care unit for further stabilization and monitoring. - Data Points Laboratory Results: Laboratory Results 04/11/17 14:00 04/11/17 14:00 04/11/17 04/11/17 04/11/17 14:31 14:07 14:00 WBC RBC Hgb POC Hgb 11.6 gm/dL L gm/dL (12.6-16.3) Hct POC Hct 34 % L % (38-47) MCV MCH MCHC RDW Plt Count MPV Neut % (Auto) Lymph % (Auto) [place] % (Auto) Eos % (Auto) Baso % (Auto) Nucleat RBC Rel Count Absolute Neuts (auto) Absolute Lymphs (auto) Absolute Monos (auto) Absolute Eos (auto) Absolute Basos (auto) Absolute Nucleated RBC Immature Gran % Immature Gran # Puncture Site LEFT RADIAL Patient Temperature 37.0 DEGREES DEGREES pCO2 36 mmHg mmHg (34-38) pO2 143 mmHg H mmHg (65-75) Total CO2 21 mEq/L L mEq/L (23-27) ABG pH 7.37 (7.35-7.45) ABG PO2/FiO2 Ratio 143 RATIO RATIO ABG HCO3 20 mEq/L L mEq/L (22-26) ABG O2 Saturation 99 % H % (92-95) ABG Base Excess -4.4 mEq/L L mEq/L (-2.5-2.5) O2 Concentration % 100 % % (0-100) POC Sodium 125 mEq/L L mEq/L (134-144) Sodium 125 mEq/L L mEq/L (135-145) POC Potassium 3.9 mEq/L mEq/L (3.3-5.0) Potassium 4.1 mEq/L mEq/L (3.5-5.2) POC Chloride 88 mEq/L L mEq/L (97-110) Chloride 87 mEq/L L mEq/L (97-110) Carbon Dioxide 25 mEq/l mEq/l (22-31) Anion Gap 13 mEq/L mEq/L (8-16) POC BUN 39 mg/dL H mg/dL (7-23) BUN 44 mg/dL H mg/dL (7-23) Creatinine 1.1 mg/dL H mg/dL (0.6-1.0) POC Creatinine 1.3 mg/dL H mg/dL (0.6-1.0) Estimated GFR 47 Glucose 130 mg/dL H mg/dL (70-100) POC Glucose 137 mg/dL H mg/dL (70-100) Calcium 9.2 mg/dL mg/dL (8.5-10.4) 04/11/17 14:00 WBC 17.45 10^3/uL H 10^3/uL (3.80-9.50) RBC 3.61 10^6/uL L 10^6/uL (4.18-5.33) Hgb 11.3 g/dL L g/dL (12.6-16.3) POC Hgb Hct 33.1 % L % (38.0-47.0) POC Hct MCV 91.7 fL fL (81.5-99.8) MCH 31.3 pg pg (27.9-34.1) MCHC 34.1 g/dL g/dL (32.4-36.7) RDW 13.8 % % (11.5-15.2) Plt Count 337 10^3/uL 10^3/uL (150-400) MPV 9.9 fL fL (8.7-11.7) Neut % (Auto) 89.3 % H % (39.3-74.2) Lymph % (Auto) 2.8 % L % (15.0-45.0) [place] % (Auto) 7.2 % % (4.5-13.0) Eos % (Auto) 0.0 % L % (0.6-7.6) Baso % (Auto) 0.2 % L % (0.3-1.7) Nucleat RBC Rel Count 0.0 % % (0.0-0.2) Absolute Neuts (auto) 15.59 10^3/uL H 10^3/uL (1.70-6.50) Absolute Lymphs (auto) 0.49 10^3/uL L 10^3/uL (1.00-3.00) Absolute Monos (auto) 1.25 10^3/uL H 10^3/uL (0.30-0.80) Absolute Eos (auto) 0.00 10^3/uL L 10^3/uL (0.03-0.40) Absolute Basos (auto) 0.03 10^3/uL 10^3/uL (0.02-0.10) Absolute Nucleated RBC 0.00 10^3/uL 10^3/uL (0-0.01) Immature Gran % 0.5 % % (0.0-1.1) Immature Gran # 0.09 10^3/uL 10^3/uL (0.00-0.10) Puncture Site Patient Temperature pCO2 pO2 Total CO2 ABG pH ABG PO2/FiO2 Ratio ABG HCO3 ABG O2 Saturation ABG Base Excess O2 Concentration % POC Sodium Sodium POC Potassium Potassium POC Chloride Chloride Carbon Dioxide Anion Gap POC BUN BUN Creatinine POC Creatinine Estimated GFR Glucose POC Glucose Calcium Medications Given: Discontinued Medications Diltiazem HCl (Cardizem 25 Mg/5 Ml Vial) 20 mg IVP EDNOW ONE Stop: 04/11/17 13:50 Last Admin: 04/11/17 14:15 Dose: 10 mg Diltiazem HCl 125 mg/ Dextrose 125 mls @ 0 mls/hr IV EDNOW ONE; As Directed PRN Reason: Protocol Stop: 04/11/17 13:50 Last Admin: 04/11/17 15:41 Dose: Not Given Amiodarone HCl (Amiodarone Hcl) 100 mls @ 600 mls/hr IV ONCE ONE Stop: 04/11/17 14:59 Last Admin: 04/11/17 15:28 Dose: 100 mls Ketamine HCl (Ketamine) 70 mg IVP EDNOW ONE Stop: 04/11/17 14:21 Last Admin: 04/11/17 14:31 Dose: 70 mg Ondansetron HCl (Zofran) 4 mg IVP EDNOW ONE Stop: 04/11/17 14:37 Last Admin: 04/11/17 14:37 Dose: 4 mg Point of Care Test Results: 04/11/17 14:07 POC Sodium 125 L POC Potassium 3.9 POC Chloride 88 L POC BUN 39 H POC Creatinine 1.3 H POC Glucose 137 H Departure - Departure Disposition: [facility] Inpatient Acute Clinical Impression: Hypotension, Tachycardia, Vomiting, Dehydration Condition: Critical
[2017-04-11] MEDS ORDERED: DILTIAZEM 25 MG/5 ML VIAL IVP ONE (13:49)
[2017-04-11] MEDS ORDERED: DILTIAZEM 125 MG in D5W 125 ML IV ONE (13:49)
[2017-04-11 14:13] LABS: PLATELET COUNT 337 10^3/uL (150-400)
--- NOTE | 2017-04-11 14:14 | CPEKG ---
Heart Rate: 186 RR Interval: 323 QRSD Interval: 72 QT Interval: 252 QTC Interval: 443 QRS [place]: 67 T Wave [place]: -19 EKG Severity - ABNORMAL ECG - EKG Impression: ATRIAL FIBRILLATION WITH RAPID V-RATE EKG Impression: REPOLARIZATION ABNORMALITY, PROB RATE RELATED Electronically Signed By: Vishal Humphreys 11-Apr-2017 15:58:49
[2017-04-11] MEDS ORDERED: PROPOFOL 200 MG/20 ML VIAL ONE (14:18)
[2017-04-11] MEDS ORDERED: KETAMINE 200 MG/20 ML VIAL ONE (14:18)
[2017-04-11] MEDS ORDERED: KETAMINE 200 MG/20 ML VIAL IVP ONE (14:20)
[2017-04-11] MEDS ORDERED: ONDANSETRON 4 MG/2 ML VIAL ONE (14:35)
[2017-04-11] MEDS ORDERED: ONDANSETRON 4 MG/2 ML VIAL IVP ONE (14:36)
[2017-04-11] MEDS ORDERED: AMIODARONE HCL 200 ML IV ONE (14:50)
[2017-04-11] MEDS ORDERED: AMIODARONE HCL 100 ML IV ONE (14:50)
--- NOTE | 2017-04-11 16:28 | ASMTCMCOM ---
CM Note CM Note Notes: film or tape librarian received VM from Jamilah at [facility] ([facility]) #[id number] alerting CM to patient's return to the ER. Patient is newly current with [facility] PT/RN. CM to follow during admission and discharge planning prn Date Signed: 04/11/2017 04:28 PM Electronically Signed By:Kesha Fritz RN
[2017-04-11] MEDS ORDERED: BISACODYL 10 MG SUPP PR PRN (16:36)
[2017-04-11] MEDS ORDERED: MAGNESIUM HYDROXIDE 30 ML UDCUP PO PRN (16:36)
[2017-04-11] MEDS ORDERED: ACETAMINOPHEN 325 MG TAB PO PRN (16:36)
[2017-04-11] MEDS ORDERED: POLYETHYLENE GLYCOL 3350 17 GM PKT PO PRN (16:36)
[2017-04-11] MEDS ORDERED: LACTULOSE 20 GM/30 ML UDCUP PO PRN (16:36)
[2017-04-11] MEDS ORDERED: ALTEPLASE 2 MG VIAL IVP PRN (17:14)
[2017-04-11] MEDS ORDERED: CEFEPIME HCL 2 GM in STERILE WATER INJ 12.5 ML IV ONE (17:34)
[2017-04-11] MEDS ORDERED: PANTOPRAZOLE SODIUM 40 MG VIAL IVP SCH ×2 (17:45→22:04)
--- NOTE | 2017-04-11 18:02 | SOAPPROG ---
SOAP Progress Note Assessment/Plan: Assessment: 86 yo female s/p recent admission for a fib and LLL pna - she was doing very well until yesterday she started feeling really tired again, got worse throughout the day and had a lot of coughing last night. Today started to develop n/v and has had constipation ongoing for a week w/ just a small output. When visiting nurse came today she was gagging brown liquid so she called and there was concern of bowel obstruction. In addition, found out that she was fatigued again and more somnolent than usual, staring to feel like she did prior to last admission. Instructed spouse to call ambulance and he called his daughter, Geovanna Blake, who came right over and brought her in. She was initially somewhat stable but then became hypotensive and severely tachycardic, in a fib again. She was cardioverted in the ER and then cardiology started her on amiodarone as she was still having numerous pvc's and rhythm looking unstable. NG Tube attempted in ER w/o success. She was transferred to the ICU in stable condition at that point. -a fib/flutter w/ rvr - now on amiodarone gtt, appreciate cardiology input - spoke w/ Yumiko and cardiology will follow along. She did not tolerate diltiazem well on last admission, but did have one trial dose of digoxin as outpt that worked well and she tolerated it fine. She clearly does not tolerate a fib/ flutter well at all and becomes rapidly decompensated, hypoxic, fatigued when not in sinus. Is on warfarin, INR pending. If subtherapeutic will bridge until NG tube out. Did not take warfarin yet today. -? new pna - with 3 hours of coughing last night, h/o large HH, recent LLL PNA. Treated with ceftriaxone and azith last admission but due to concerns with arrhythmia will place her on cefepime after blood cultures drawn. Consider adding vanc. Will recheck wbc as this is sharply up from d/c just 2 days prior. -hyponatremia - rechecking - her dtr reports they gave her tons of fluids yesterday at home trying to help her feel better and get her bowels working. She rec'd 2 L NS in ER and traditionally has sodium level 140's. She only had low sodium on last admission after diuresis. -possible CHF on cxr, fluid status now in ICU looks volume up - likely mild chf 2/2 a fib/flutter/tachycardia. BNP ordered and pending. Need to reassess sodium level prior to consideration of diuresis. -HH/Gerd - will place on PPI IV. Her coughing episodes last night very uncomfortable. Have tried moving her to H2 esteban but she is not tolerating this well, back to PPI. -Constipation - concern w/ severity at this point w/ n/v , no real significant output in a week, uncomfortable - will place NGT for decompression and see if this helps. Will order suppository/enema as able. -DVT proph - in on warfarin, INR pending. See above w/ a fib/flutter. Will bridge if subtherapeutic. 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 -difficult IV access - have ordered PICC line as she will be on dilt gtt, iv ppi , pain meds, fluids, and need better access. Plan: 04/11/17 17:46 Subjective: Doing ok, pleased to have daughter and friend at bedside, c/o s/t from coughing Objective: Vital Signs Temp Pulse Resp BP Pulse Ox 36.6 C 100 14 92/60 L 93 04/11/17 16:12 04/11/17 16:16 04/11/17 16:16 04/11/17 16:16 04/11/17 16:16 04/10/17 04/11/17 04/12/17 05:59 05:59 05:59 Intake Total 2500 Output Total 100 Balance 2400 GEN: tired but appropriate, oriented Heent: nasal cannula, eomi Neck: soft/supple Chest: somewhat coarse bs L>R CV: RRR nl s1 s2 currently Abd: soft hypoactive bs but not tender Ext: 1-2+ edema LLE>RLE asymmetry chronic from polio Neuro: oriented, appropriate Psych: was frightened but now doing much better, extremely pleasant Msk: decreased strength LLE from polio - Pending Discharge Pending Discharge Within 24 Hours: No ICD10 Worksheet Patient Problems: Problems Problem Status Onset Hypotension Acute Tachycardia Acute Vomiting Acute Dehydration Acute chronic disease mgmt/transitional care Acute Pneumonia Active
[2017-04-11] MEDS ORDERED: BISACODYL 10 MG SUPP PR ONE (18:29)
[2017-04-11] MEDS: NS 1,000 ML IV SCH (19:10)
--- NOTE | 2017-04-11 19:30 | GHP ---
[f rep st] HISTORY AND PHYSICAL DATE OF ADMISSION: 04/11/2017 HISTORY OF PRESENT ILLNESS: Patient is an 86-year-old, pleasant female, known well to me who is status post a recent admission for atrial fibrillation and left lower lobe pneumonia where she improved significantly, was doing quite well , and was discharged home 2 days ago with 1 further day of antibiotics. She was having issues with constipation during her last admission, but had only consumed liquids and had x-ray showing no obstruction, just constipation. She had a little bit of output prior to discharge and was very glad to be home. She had refused rehabilitation or half-way facility, and was getting the help of her daughter, , home health, and physical therapy. She was doing okay until yesterday when she started feeling quite tired again. This progressed throughout the day with a lot of coughing overnight. She developed some nausea and vomiting at the same time with all the coughing, and then today the visiting nurse noticed that she was vomiting some brown liquid and acting much more fatigued and somnolent than usual, rapidly declining from the day prior. The visiting nurse called and after discussing the events with her, I discussed with her spouse to send her by ambulance to the emergency department, and he decided to call his daughter, who came over and got her and brought her to the hospital. Upon arrival she was initially somewhat stable, but then became hypotensive and severely tachycardic in atrial fibrillation and atrial flutter. As she became more and more unstable, the decision was made to cardiovert her in the emergency department, which was done successfully with one attempt, but then she was having multiple PVCs and some unstable rhythm, and Cardiology started her on an amiodarone drip. In discussing her nausea and vomiting and her coughing, it turns out, she had had an Ensure or Boost chocolate shake prior to the brownish liquid that the home visiting nurse noticed. Assessment of her abdomen in the emergency department was fairly benign. She had an abdominal x-ray, which did show her large hiatal hernia and was consistent with constipation, but no obstruction noted. She still after about a week has not had a significant bowel movement. After she was stabilized at that point, an NG tube was attempted in the emergency department without success and then she was transferred to the ICU in stable condition. PAST MEDICAL HISTORY: 1. 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 2. Hiatal hernia. 3. GERD. 4. 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 SOCIAL HISTORY: She is . She lives at home with her spouse and her daughter. The daughter is close by, a couple of houses away. They have neighbors and friends who are very supportive. She does not consume alcohol. She does not drink. FAMILY HISTORY: Noncontributory. ALLERGIES: Include curare and pineapple. MEDICATIONS: As an outpatient include: 1. Vitamin D. 2. PreserVision AREDS 2 soft gels. 3. Atorvastatin 40 mg at bedtime. 4. Systane eyedrops. 5. Polymyxin B/trimethoprim ophthalmic drops. 6. MiraLAX 17 g daily. 7. Zestril 10 mg daily. 8. Synthroid 75 mcg daily. 9. Pepcid 20 p.o. twice daily. 10. Colace 100 mg daily. 11. Prolia 60 mg subcutaneously q.6 months. 12. Oxycodone IR 5 mg q.4-6 hours p.r.n. 13. OxyContin 10 mg p.o. twice daily. 14. Amlodipine 5 mg p.o. daily. 15. Warfarin 3 mg alternating with 2 mg. 16. Detrol LA 4 mg p.o. at bedtime. 17. Salsalate 750 mg p.o. 3 times daily. PHYSICAL EXAMINATION: CURRENT VITAL SIGNS: Blood pressure 92/60, heart rate 100, respiration rate 14. She is 99% on 2 L. Rhythm showing normal sinus rhythm with scattered PVCs. GENERAL: A pleasant female, tired appearing, compared to usual baseline, but alert when spoken to. Answers questions appropriately. She is oriented. HEENT: EOMI. Nasal cannula in place. NECK: Soft and supple. CHEST: Somewhat coarse breath sounds on the left side greater than the right. ABDOMEN: Soft, tender in the mid epigastric area. Hypoactive bowel sounds. CARDIOVASCULAR: Regular rate and rhythm with some PVCs. Normal S1, S2. EXTREMITIES: She has 1 to 2+ bilateral lower extremity edema with the left greater than the right. Chronic asymmetry left over from her polio. NEUROLOGIC: She is oriented and appropriate. PSYCHIATRIC: Very pleasant female who was scared during cardioversion episode in the emergency department, but feels better now. REVIEW OF SYSTEMS: CONSTITUTIONAL: She was doing much better from her last admission until 1 day ago when she started feeling fatigued and not very good and started having loss of appetite and coughing. Ongoing constipation, nausea , and vomiting. HEENT: She has ongoing issues with severely dry eyes and is treated at the [facility] with injections and eye drops. RESPIRATORY: Complains of coughing last night quite frequently, keeping both herself and her spouse awake. CARDIOVASCULAR: She cannot really appreciate the tachycardia, just does not feel good. ABDOMEN: Significant for constipation, nausea, and vomiting. MUSCULOSKELETAL: No acute changes. She has chronic left lower extremity weakness from polio. She has some chronic ongoing issues with her shoulders. : No new significant problems. She has some history of frequency and urgency. NEUROLOGIC: No acute concerns. HEMATOLOGIC/ALLERGIC: Negative. ASSESSMENT AND PLAN: An 86-year-old female with recurrent onset of atrial fibrillation. It sounds like this was resultant in onset of fatigue and general sense of progressing over the last 24 hours at home. Complicated by ongoing constipation with nausea and vomiting who ultimately presented in the emergency department, hypotensive and severely tachycardic needing cardioversion and placed on amiodarone drip. Ectopy. PLAN: 1. Atrial fibrillation/flutter with rapid ventricular response, now on amiodarone drip. Appreciate cardiology input. I did speak with Yamilet Robertson of Cardiology, and they are following along. Appreciate their input. Ghislaine clearly does not tolerate atrial fibrillation/flutter/tachyarrhtymia. She rapidly decompensates, becomes hypoxic, and fatigued. We will adjust medications for rate control and hopefully trying to keep her out of this rhythm for the future. She is on warfarin. Her INR is pending. If subtherapeutic we will bridge until her NG tube is out. She did not take warfarin this afternoon. 2. Question of new pneumonia with 3 hours of coughing last night and background of large hiatal hernia. Recent left lower lobe pneumonia. She is at risk for aspiration, but she improved rapidly last admission on ceftriaxone and azithromycin. Hesitate to use azithromycin with underlying arrhythmia. We will get blood cultures and place on cefepime currently with consideration of adding vancomycin. Repeating laboratories tonight. 3. Hyponatremia. Rechecking. Her daughter does report they gave her tons of fluid yesterday trying to help her feel better. Typically she if anything is dry and does not consume much at home because going to the bathroom is difficult with her polio and wheelchair-bound status. She did receive 2 L normal saline in the emergency department. We will recheck sodium this evening. 4. Possible congestive heart failure on chest x-ray and fluid status in the ICU. She clearly looks volume up. Likely mild congestive heart failure secondary to atrial fibrillation, atrial flutter, and tachycardia. BNP ordered and pending. We will reassess sodium level prior to consideration of diuresis, as we do not want her to become more hyponatremic. 5. Large hiatal hernia and gastroesophageal reflux disease. We will place her back on a proton pump inhibitor. We will start this intravenously. Her coughing episodes were very uncomfortable last night. She has a lot of distention discomfort secondary to the backup of her constipation. She will be placed with an NG tube. 6. Constipation. Concerned with ongoing constipation, then weak without any significant bowel movement. She has had some output, but nothing large. We will order a suppository and enema as able. Work on decompression of discomfort w/ NGT. See above. 7. Deep venous thrombosis prophylaxis. She is on warfarin and INR is pending. We will bridge if subtherapeutic until NG tube is removed. 8. Chronic pain secondary to post polio. She is typically on OxyContin and oxycodone. We will place on intravenous morphine overnight while NG is in place. 9. Difficult IV access. Have ordered a PICC line to be placed, as we need better access and unable to get more than 1 line right now. She is on a diltiazem drip. Intravenous medications, antibiotics, fluids, proton pump inhibitors. 10. Inpatient status - likely patient will need >2 midnight stay as she was hypotensive, tachy, required cardioversion in ER and current admission to the ICU. /[id number]/MODL MTDD
[2017-04-11] MEDS: SENNOSIDES/DOCUSATE SODIUM TAB PO SCH (19:36)
[2017-04-11 19:57] LABS: PLATELET COUNT 231 10^3/uL (150-400)
[2017-04-11] MEDS ORDERED: FUROSEMIDE 20 MG/2 ML VIAL IVP ONE (21:15)
[2017-04-11] MEDS ORDERED: AMIODARONE HCL 540 MG in D5W 300 ML IV ONE (22:00)
[2017-04-11] MEDS ORDERED: CEFEPIME HCL 1 GM in STERILE WATER INJ 11.3 ML IV SCH (22:00)
[2017-04-11 23:01] LABS: PROTIME(PATIENT) 112.9 SEC (12.0-15.0)
[2017-04-11 23:02] LABS: INR 16.31 (0.83-1.16)
[2017-04-11 23:44] LABS: PROTIME(PATIENT) 103.1 SEC (12.0-15.0)
[2017-04-11 23:46] LABS: INR 14.48 (0.83-1.16)
[2017-04-12] MEDS ORDERED: PHYTONADIONE 5 MG in NS 50 ML IV ONE (00:30)
[2017-04-12 04:37] LABS: PLATELET COUNT 252 10^3/uL (150-400)
[2017-04-12 05:03] LABS: INR 2.13 (0.83-1.16); PROTIME(PATIENT) 23.9 SEC (12.0-15.0)
[2017-04-12] MEDS: NS 1,000 ML IV SCH (05:50)
[2017-04-12] MEDS ORDERED: CEFEPIME HCL 2 GM in NS 100 ML IV SCH (06:00)
[2017-04-12] MEDS ORDERED: CEFEPIME HCL 2 GM in STERILE WATER INJ 12.5 ML IV SCH ×2 (06:00→17:00)
[2017-04-12] MEDS ORDERED: POTASSIUM Cl (KCl) 100 ML IV SCH (07:10)
[2017-04-12] MEDS ORDERED: POTASSIUM Cl (KCl) 20 MEQ in NS 1,000 ML IV SCH (07:10)
--- NOTE | 2017-04-12 07:58 | CPEKG ---
Heart Rate: 107 RR Interval: 561 P-R Interval: 140 QRSD Interval: 82 QT Interval: 332 QTC Interval: 443 P [place]: 67 QRS [place]: 78 T Wave [place]: 39 EKG Severity - BORDERLINE ECG - EKG Impression: SINUS TACHYCARDIA WITH IRREGULAR RATE 92-140 EKG Impression: Q WAVES ANTERIORLY Electronically Signed By: Aaron Villaseñor 12-Apr-2017 12:34:41
[2017-04-12] MEDS: POTASSIUM Cl (KCl) 10 MEQ in NS 100 ML IV SCH ×3 (08:18→09:37)
[2017-04-12] MEDS: PANTOPRAZOLE SODIUM 40 MG VIAL IVP SCH ×2 (08:18)
[2017-04-12] MEDS: NS W/ 20 KCl/L 1,000 ML IV SCH ×2 (08:24→21:01)
[2017-04-12] MEDS: Propylene Glycol/Peg 400 [Systane 0.3-0.4% Eye Drops] OP PRN ×4 (08:47→21:05)
[2017-04-12] MEDS: POLYMYXIN B SULFATE/TMP 10 ML OPHT.BTL EACHEYE SCH (08:49)
--- NOTE | 2017-04-12 08:57 | CPEKG ---
Heart Rate: 83 RR Interval: 723 P-R Interval: 132 QRSD Interval: 86 QT Interval: 384 QTC Interval: 452 P [place]: 108 QRS [place]: 67 T Wave [place]: 32 EKG Severity - ABNORMAL ECG - EKG Impression: SINUS RHYTHM EKG Impression: Q WAVES ANTERIORLY, POSSIBLE OLD ANTERIOR PR Electronically Signed By: Aaron Villaseñor 12-Apr-2017 12:34:19
[2017-04-12] MEDS: SENNOSIDES/DOCUSATE SODIUM TAB PO SCH ×2 (09:07→19:31)
[2017-04-12] MEDS ORDERED: BISACODYL 10 MG SUPP PR ONE (09:29)
[2017-04-12] MEDS ORDERED: PROTOCOL POTASSIUM 1 DOSE MISC PRN (09:29)
--- NOTE | 2017-04-12 10:58 | SOAPPROG ---
JAMILAH Progress Note Assessment/Plan: Assessment: 86 yo female admitted w/ afib/flutter w/ rvr s/p cardioversion in ER on amiodarone gtt, w/ mild CHF from tachyarrhthymia, vol up, major constipation, massive HH w/ abdominal discomfort and pressure greatly relieved w/ NG tube. -a fib/flutter w/ rvr - now on amiodarone gtt, appreciate cardiology input - will change to oral amio when able per req (and NGT), concern w/ if this will be enough to keep her in sinus, largely dilated LA on echo, somewhat tenuous, may be a challenge to keep in NSR. -new/ongoing LLL PNA/aspiration/pneumonitis - on zosyn, h/o large HH w/ back up pain and pressure from severe constipation and coughing episodes w/ n/v priro to admission putting her at risk of aspiration, recent LLL PNA on prior hospitalization. Placed back on IV PPI, d/c trial of h2 esteban. -hyponatremia - improving w/ NS, following. -CHF w/ elev BNP , cardiomegaly on cxr - bp soft currently, not able to diurese , afib/flutter w/ rvr etiology of CHF, trop mild up after cardioversion, will recheck suspect just from this. -HH/Gerd - will place on PPI IV. Pressure relieved greatly w/ NG tube will cont for now. -Constipation - concern w/ severity at this point w/ n/v , no real significant output in a week, uncomfortable - will place NGT for decompression and see if this helps. Will order suppository again this am. Have tried numerous options w / o success but she does feel crampy this am that something is about to happen. -DVT proph - in on warfarin, INR pending. See above w/ a fib/flutter. INR elev overnight ? now therapeutic, will recheck daily, holding warfarin currently w/ NGT and elev INR last night which resolved rapidly w/ vit K. -will move to PCU when bed avail. 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 -hypoK - K protocol 04/12/17 10:45 04/12/17 11:00 Subjective: feeling better than yesterday, feeling much more "alert and less confused" Objective: Vital Signs Temp Pulse Resp BP Pulse Ox 36.6 C 95 18 98/35 L 96 04/12/17 08:00 04/12/17 10:00 04/12/17 10:00 04/12/17 10:00 04/12/17 10:00 Laboratory Results 04/12/17 04:15 04/12/17 04:15 04/11/17 04/12/17 04/13/17 05:59 05:59 05:59 Intake Total 3780 Output Total 1550 Balance 2230 PT 23.9 SEC (12.0-15.0) H D 04/12/17 04:15 INR 2.13 (0.83-1.16) H 04/12/17 04:15 Gen: brighter affect, oriented, appropriate Heent: eomi Neck, soft supple Chest: decreased bs mild bases CV: rrr nl s1 s2 Abd: hypoactive bs, mildly ttp in midepig area Ext: 1-2+ edema ble L>R (chronic asymmetry) - Pending Discharge Pending Discharge Within 24 Hours: No ICD10 Worksheet Patient Problems: Problems Problem Status Onset Hypotension Acute Tachycardia Acute Vomiting Acute Dehydration Acute chronic disease mgmt/transitional care Acute Pneumonia Active
[2017-04-12] MEDS: AMPICILLIN/SULBACTAM 1.5 GM in NS 50 ML IV SCH ×3 (12:04→22:55)
--- NOTE | 2017-04-12 12:42 | ASMTCMCOM ---
CM Note CM Note Notes: Patient continues to have severe comstipation and coughing episodes.Awaiting PT/OT evals for d/c needs. Patient is an active client of [facility]. CM will follow. Date Signed: 04/12/2017 12:41 PM Electronically Signed By:Emma Crawford LCSW
--- NOTE | 2017-04-12 14:41 | WOCRNPDOC ---
NATASHA Advanced Assessment Note - Skin Integrity Problem, Advanced Assess Left Ischial Tuberosity Abscess Dressing Type: Allevyn Life Exudate Amount: None Yessi Wound Tissue: Scarred Site Measurement - Head-to-Toe Length X Width X Depth (cm): 2x2x0 Skin Integrity Problem Comment: Intact scarred area that appears to be the site of a reacurring abcess. No pressure related injuries. Stable without surrouding erythema or drainage. May cover with medium allevyn life or leave HELP DESK REPRESENTATIVE. Wound care will sign off.
[2017-04-12] MEDS: CEPACOL LOZENGE PO PRN ×2 (15:38→19:30)
[2017-04-12] MEDS: AMIODARONE HCL 200 ML IV SCH (16:26)
--- NOTE | 2017-04-12 21:15 | GCON ---
[f rep st] CONSULTATION HISTORY OF PRESENT ILLNESS: This is an 86-year-old female with a past medical history of post-polio syndrome, large hiatal hernia, GERD, history of pulmonary embolism and DVT, who had seen me in the clinic about 2 weeks back after being noted to have atrial flutter with a rate of 154 beats per minute. The patient saw me 24 hours after that and was seen to be in atrial fibrillation with a rate of 79 beats per minute, was relatively stable and medical management was ensued. However, in the next 5 days, she continued to feel extremely tired and fatigued and, hence, presented to primary care physician, Dr. Ralph's office. Considering her fatigue, it was decided to cardiovert from atrial fibrillation. It was decided to get the patient to the [facility] for cardioversion, and the patient was seen the next day for cardioversion, but was noted to be in sinus rhythm, however, her symptoms had continued unabated. At that point in time, for further evaluation, it was decided to admit her to the hospital. During hospitalization, she was noted to have a questionable left lower lobe pneumonia, which with treatment got better, and she was discharged to home. However, her concern of constipation continued at home, but she was generally doing well up until April 10, then she started feeling tired again and had significant amount of coughing, nausea and vomiting. The visiting nurse then noted some brown liquid, and was more fatigued and somnolent, and was generally doing poorly, at which point in time it was decided to bring the patient to the hospital. On arrival to the hospital, though she was initially stable, she became hypotensive and developed atrial fibrillation with RVR. Considering the hemodynamic instability, with the blood pressure in the 60s, it was decided to cardiovert the patient, which was done, and the patient was started on amiodarone drip. An NG tube was placed with significant output and the patient was stabilized in the ICU. In the ICU, the patient's systolic blood pressure remained between 90 and 115. Overnight, she maintained normal sinus rhythm with fluctuation of the blood pressure. She appeared to be a little more awake. PAST MEDICAL HISTORY: Post-polio syndrome, chronic pain, hiatal hernia, GERD, DVT, on chronic warfarin. SOCIAL HISTORY: , lives at home with her spouse and daughter. Daughter is involved in the patient's care. FAMILY HISTORY: Noncontributory. ALLERGIES: Tequila and pineapple. MEDICATIONS: Outpatient: Vitamin D, atorvastatin, MiraLax, Zestril 10 mg, Synthroid 75 mcg, Pepcid 20 b.i.d., Colace 100 daily, Prolia, oxycodone, OxyContin, amlodipine 5 mg, warfarin, Detrol LA, salsalate. PHYSICAL EXAMINATION: VITAL SIGNS: Blood pressure 88/60, pulse of 96 and regular, respiratory rate 14, saturation 98% on 2 L. Tele monitor shows sinus rhythm with scattered PVCs. GENERAL: Pleasant female, appears tired, however, conversing. Alert, oriented. Pupils equal, reacting to light, accommodating. NECK: Supple. CHEST: Coarse breath sounds, decreased on the left compared to the right. ABDOMEN: Soft. Tender in the midepigastric region. Decreased bowel sounds. CARDIOVASCULAR: Regular rate and rhythm. No significant murmurs noted. EXTREMITIES: 1+ pitting edema. Asymmetry noted. PSYCHIATRIC: A pleasant female, answering questions appropriately. REVIEW OF SYSTEMS: 10-point review of systems: Fatigue, loss of appetite, cough, dry eyes, left extremity edema. Otherwise, review of systems is negative. IMPRESSION/PLAN: 1. An 86-year-old with atrial flutter/fibrillation, who was recently discharged from the hospital and came back with feeling worse and then in the ER was found to be hypotensive and had AF with RVR. The patient was cardioverted and is maintained on amiodarone drip. Will continue on p.o. amiodarone for now and further evaluate her. At baseline, she does have a significant left atrial enlargement and, hence, I am concerned that we may not be able to successfully keep her in normal rhythm. Amiodarone is probably our best option and, hence, we will continue on intravenous amiodarone followed by p.o. amiodarone. Continue Coumadin for now. 2. Anemia. Currently, she has low hemoglobin level. I wonder if this is due to chronic disease and may be contributing somewhat to her atrial fibrillation. Consideration for a blood transfusion. 3. Pneumonia versus pneumonitis. The patient was coughing for 3 hours and has a large hiatal hernia. The patient is on Zosyn for possibility of pneumonia. 4. Congestive heart failure. Her BNP is elevated, however, her BUN and creatinine are also elevated. She has a low albumin. Hence, it is difficult to tease out these issues. However, it may be worth prefering over rather than underhydrated since the EF is normal. Patient is currently on normal saline. 5. Constipation. This may be partly contributory to her vomiting along with a hiatal hernia. Thank you for letting us participate in the patient's care. /[id number]/MODL MTDD
[2017-04-13 05:00] LABS: PLATELET COUNT 226 10^3/uL (150-400)
[2017-04-13] MEDS: AMPICILLIN/SULBACTAM 1.5 GM in NS 50 ML IV SCH ×4 (05:04→23:27)
[2017-04-13] MEDS: AMIODARONE HCL 200 ML IV SCH ×2 (05:04→16:22)
[2017-04-13 05:12] LABS: INR 1.27 (0.83-1.16); PROTIME(PATIENT) 16.1 SEC (12.0-15.0)
[2017-04-13] MEDS: CEPACOL LOZENGE PO PRN ×3 (05:28→20:28)
[2017-04-13] MEDS: POLYMYXIN B SULFATE/TMP 10 ML OPHT.BTL EACHEYE SCH (09:29)
[2017-04-13] MEDS ORDERED: IOPAMIDOL (ISOVUE-300) 100 ML BTL ONE (09:34)
[2017-04-13] MEDS: PANTOPRAZOLE SODIUM 40 MG VIAL IVP SCH (10:40)
[2017-04-13] MEDS: ENOXAPARIN 30 MG/0.3 ML SYR SC SCH ×2 (10:40→21:14)
[2017-04-13] MEDS: SENNOSIDES/DOCUSATE SODIUM TAB PO SCH ×2 (11:00→21:15)
--- NOTE | 2017-04-13 11:16 | PDCARPN ---
Cardiology Progress Note Assessment/Plan: Assessment/plan: 86-year-old female with known history of atrial flutter and atrial fibrillation. She also has post-polio syndrome with limited mobility at home, a history of DVT PE on chronic warfarin therapy as an outpatient, and reflux. She was admitted through the ER on April 11 with hypotension and atrial flutter with rapid ventricular response requiring urgent cardioversion. She was placed on amiodarone drip and started on subcu Lovenox at therapeutic dose. Her rhythm has remained sinus. She was also diagnosed with pneumonia. She currently has an NG tube for decompression in the setting of severe constipation and possible aspiration. 1. Atrial arrhythmias: Currently in sinus rhythm. Once she is able to take oral medications she will be transitioned to oral amiodarone. For now, continue IV amiodarone drip. If this will be a long-term medication for her, she will be enrolled in our amiodarone surveillance program through [facility]. At this point she is on Lovenox. I am concerned about her significant hematocrit drop. We may need to hold this if her hematocrit continues to drop. 2. Pneumonia: Possibly related to aspiration. Per Dr. Agustina Ralph. She is on antibiotics. 3. Anemia: Her hematocrit has gone from 30/3 on April 06 to 23.6 today. No obvious clinical bleeding. She is receiving a transfusion today. May need to hold Lovenox. 4. Severe constipation: Per Internal Medicine. Bowel regimen. She does have an NG tube. 5. History of DVT and PE: On warfarin as an outpatient. This is currently on hold. 04/13/17 11:17 Subjective: Ghislaine denies anginal chest pain. She denies shortness of breath. She remains constipated and has not had a bowel movement for over a week. There has been no blood in the NG tube secretions. Reviewed/Discussed With: multidisciplinary team Objective: Vital Signs (8 Hrs) Temp Pulse Resp BP Pulse Ox 04/13/17 08:00 37.1 C 80 18 146/64 H 99 04/13/17 04:00 36.8 C 87 17 120/52 L 97 Intake/Output (24 Hrs) 04/12/17 04/13/17 04/14/17 05:59 05:59 05:59 Intake Total 3780 1208 1287.3 Output Total 1550 930 Balance 2230 278 1287.3 Intake: IV Infused (ml) 3780 1208 1287.3 Amiodarone HCl 200 ml @ 23.3 16.67 mls/hr IV CONT [facility] Rx#:[id number] Amiodarone HCl 540 mg In 313 170 D5w 300 ml @ 16.667 mls/ hr IV ONCE ONE Rx#: [id number] Ampicillin/Sulbactam 1.5 85 104 gm In Ns 50 ml @ 200 mls/ hr IV Q6HRS [facility] Rx#: [id number] NS W/ 20 KCl/L 1,000 ml @ 953 1160 100 mls/hr IV CONT [facility] Rx#:[id number] Ns 1,000 ml @ 100 mls/hr 967 IV CONT [facility] Rx#: [id number] Output: Urine (ml) 850 730 Catheter 750 730 NG Tube Output (ml) 700 200 Large Bore (>12 Belarusian) 700 200 Right Naris Stomach Other: Weight 80 kg Appears uncomfortable, pale, lying at 30 degrees. JVP less than 10 cm of water. Regular rate and rhythm without murmur or gallop Occasional rhonchi anteriorly and laterally Positive bowel sounds, abdomen is obese soft and nontender 1+ pitting edema of both ankles. Result Diagrams: 04/13/17 04:48 04/13/17 04:48 Cardiac Labs: Cardiac Lab Results (72 Hrs) 04/11/17 19:12 Troponin I 0.084 H Telemetry: Normal sinus rhythm ICD10 Worksheet Patient Problems: Problems Problem Status Onset Hypotension Acute Tachycardia Acute Vomiting Acute Dehydration Acute chronic disease mgmt/transitional care Acute Pneumonia Active
--- NOTE | 2017-04-13 13:32 | SOAPPROG ---
SOAP Progress Note Assessment/Plan: Assessment:Mechanical SBO, improved. BM today. bowel sounds good. A-fib resolved. NSR with good vitals. Plan: Leave in NG tube today. Likely could remove in AM. Continue current treatment. 04/13/17 13:31 Subjective: Had a BM this morning. Breathing comfortably. No shortness of breath or abdominal pain. Objective: Vital Signs Temp Pulse Resp BP Pulse Ox 97.8 F 85 18 119/55 L 99 04/13/17 11:43 04/13/17 11:43 04/13/17 11:43 04/13/17 11:43 04/13/17 11:43 Microbiology 04/11/17 19:12 Blood Panel (PCR) - Final Blood [facility] Laboratory Results 04/13/17 04:48 04/13/17 04:48 04/12/17 04/13/17 04/14/17 05:59 05:59 05:59 Intake Total 3780 1208 1287.3 Output Total 1550 930 250 Balance 2230 278 1037.3 PT 16.1 SEC (12.0-15.0) H 04/13/17 04:48 INR 1.27 (0.83-1.16) H 04/13/17 04:48 Bowel sounds are good. BM this AM!! Lungs without rales anteriorly. VS good Labs good. ICD10 Worksheet Patient Problems: Problems Problem Status Onset Dehydration Acute Hypotension Acute Tachycardia Acute Vomiting Acute Pneumonia Active chronic disease [facility]/transitional care Acute
[2017-04-13] MEDS: NS W/ 20 KCl/L 1,000 ML IV SCH (16:22)
[2017-04-14] MEDS: NS W/ 20 KCl/L 1,000 ML IV SCH ×2 (02:18→13:47)
[2017-04-14] MEDS: AMIODARONE HCL 200 ML IV SCH (02:18)
[2017-04-14] MEDS: AMPICILLIN/SULBACTAM 1.5 GM in NS 50 ML IV SCH ×4 (05:06→23:47)
[2017-04-14 05:46] LABS: PLATELET COUNT 239 10^3/uL (150-400)
[2017-04-14 05:56] LABS: INR 1.21 (0.83-1.16); PROTIME(PATIENT) 15.5 SEC (12.0-15.0)
[2017-04-14] MEDS ORDERED: POTASSIUM Cl (KCl) 50 ML IV ONE (07:40)
[2017-04-14] MEDS: SENNOSIDES/DOCUSATE SODIUM TAB PO SCH ×2 (08:28→20:55)
[2017-04-14] MEDS: POLYMYXIN B SULFATE/TMP 10 ML OPHT.BTL EACHEYE SCH (08:29)
[2017-04-14] MEDS: PANTOPRAZOLE SODIUM 40 MG VIAL IVP SCH (08:29)
--- NOTE | 2017-04-14 10:28 | SOAPPROG ---
SOAP Progress Note Assessment/Plan: Assessment: Plan: 04/14/17 10:26 SBO- mechanical appears to have resolved. d/c NG tube, start clears, reduce IVF's edema/effusions--reduce IVF's, will likely benefit from diuresis as BP stabilizes anemia--stable repeat HGB this pm pain--ok hiatal hernia with reflux--continue iv protonix for now, see how po goes a fib--d/c amio drip, start amio po 400 mg daily, dose change as per cards anticoag--lovenox for now, d/c inr checks for now Subjective: Ghislaine is feeling better. + BM's over night. Minimal abd discomfort. No SOB, no cough, no cp Objective: Vital Signs Temp Pulse Resp BP Pulse Ox 36.6 C 91 20 133/77 H 99 04/14/17 08:00 04/14/17 08:00 04/14/17 08:00 04/14/17 08:00 04/14/17 08:00 Microbiology 04/11/17 19:12 Blood Panel (PCR) - Final Blood [facility] Laboratory Results 04/14/17 05:18 04/14/17 05:18 04/13/17 04/14/17 04/15/17 05:59 05:59 05:59 Intake Total 1208 3335.3 Output Total 930 1065 100 Balance 278 2270.3 -100 PT 15.5 SEC (12.0-15.0) H 04/14/17 05:18 INR 1.21 (0.83-1.16) H 04/14/17 05:18 Gen: bright Lungs: diminished in bases Heart: sinus regular Abd + bs soft LE's 3+ edema WBC up a bit Hgb 9.4 Stools dark ICD10 Worksheet Patient Problems: Problems Problem Status Onset Dehydration Acute Hypotension Acute Tachycardia Acute Vomiting Acute Pneumonia Active chronic disease mgmt/transitional care Acute
[2017-04-14] MEDS ORDERED: AMIODARONE HCL 200 MG TAB PO SCH (10:30)
[2017-04-14] MEDS: ENOXAPARIN 30 MG/0.3 ML SYR SC SCH ×2 (10:52→20:30)
--- NOTE | 2017-04-14 12:01 | PDCARPN ---
Cardiology Progress Note Assessment/Plan: Assessment: 1. Influenza 2. Small-bowel obstruction 3. Atrial fibrillation 4. Decreased hemoglobin, no localizing bleed Plan: 1. Will avoid high-dose Lovenox because of decreased hemoglobin. Warfarin to be restarted tomorrow. I talked with Royal Guillory regarding this 2. Decrease amiodarone dose to 200 mg a day. Use in the short-term and stop after 30 days. 04/14/17 12:00 Subjective: Feels well, especially since NG tube has been removed Time Spent With Patient: 15 min Objective: Vital Signs (8 Hrs) Temp Pulse Resp BP Pulse Ox 04/14/17 11:53 36.7 C 87 16 115/69 97 04/14/17 08:00 36.6 C 91 20 133/77 H 99 04/14/17 04:00 36.7 C 84 16 129/65 H 96 Intake/Output (24 Hrs) 04/12/17 04/13/17 04/14/17 11:59 11:59 11:59 Intake Total 3780 2495.3 2048 Output Total 1550 1180 915 Balance 2230 1315.3 1133 Intake: Oral (ml) 100 IV Intake (ml) 300 IV Infused (ml) 3780 2495.3 1648 Amiodarone HCl 200 ml @ 23.3 231 16.67 mls/hr IV CONT [facility] Rx#:[id number] Amiodarone HCl 540 mg In 313 170 D5w 300 ml @ 16.667 mls/ hr IV ONCE ONE Rx#: [id number] Ampicillin/Sulbactam 1.5 189 152 gm In Ns 50 ml @ 200 mls/ hr IV Q6HRS [facility] Rx#: [id number] NS W/ 20 KCl/L 1,000 ml @ 2113 1265 50 mls/hr IV CONT [facility] Rx #:[id number] Ns 1,000 ml @ 100 mls/hr 967 IV CONT [facility] Rx#: [id number] Output: Urine (ml) 850 980 800 Catheter 750 980 800 NG Tube Output (ml) 700 200 115 Large Bore (>12 Barbadian) 700 200 115 Right Naris Stomach Other: Weight 80 kg Number of Stools Bedpan 1 Incontinence 1 Result Diagrams: 04/14/17 05:18 04/14/17 05:18 Cardiac Labs: Cardiac Lab Results (72 Hrs) 04/11/17 19:12 Troponin I 0.084 H Telemetry: Normal sinus rhythm ICD10 Worksheet Patient Problems: Problems Problem Status Onset Hypotension Acute Tachycardia Acute Vomiting Acute Dehydration Acute chronic disease mgmt/transitional care Acute Pneumonia Active
--- NOTE | 2017-04-14 15:05 | ASMTCMCOM ---
CM Note CM Note Notes: Spoke with patient and daughter Hill about discharge planning. Patient is current with [facility] RN/PT and would like to return home with this arrangement. She lives with her , and Hill lives 2 blocks away. They have Meals on Wheels and their home is set up with DME. Current CM Discharge plan: home with [facility] Date Signed: 04/14/2017 03:05 PM Electronically Signed By:Lauren Mccoy RN
[2017-04-14] MEDS ORDERED: AMIODARONE A.FIB-6HR INFSN (ORDER 2/3) PREMIX IV ONE (22:00)
[2017-04-14] MEDS ORDERED: AMIODARONE A.FIB-LOAD DOSE(ORDER 1/3) PREMIX IV ONE (22:00)
[2017-04-15] MEDS ORDERED: AMIODARONE A.FIB-18HR INFSN (ORDER 3/3) IV ONE (04:00)
[2017-04-15] MEDS: LEVOTHYROXINE 75 MCG TAB PO SCH (06:06)
[2017-04-15] MEDS: AMPICILLIN/SULBACTAM 1.5 GM in NS 50 ML IV SCH ×2 (06:06→11:53)
[2017-04-15 06:24] LABS: PLATELET COUNT 237 10^3/uL (150-400)
[2017-04-15] MEDS ORDERED: AMIODARONE HCL 200 MG TAB PO SCH (09:00)
[2017-04-15] MEDS ORDERED: LISINOPRIL 10 MG TAB PO SCH (09:00)
--- NOTE | 2017-04-15 09:41 | SOAPPROG ---
SOCALVIN Progress Note Assessment/Plan: Assessment: Plan: 04/15/17 09:44 Atrial fibrillation: rapid rate this morning, back on amiodarone drip. Per cardiology, cardizem drip to be added if she doesn't convert. Has tolerated PO cardizem in past, so may need to try beta esteban. On lovenox, but now concern for GI bleeding. H/H stable. Anemia: H/H stable as noted, but now possible melena. Lovenox not yet given this morning pending heme check on stool. Will follow H/H closely to make sure bleeding has stopped. Will not start coumadin yet. Hiatal hernia with reflux: will switch to PO protonix now that she is tolerating PO SBO: tolerated clear liquids yesterday, so will advance diet as tolerated Edema: will buff cap IV, but not diurese as BP still not that high. Lisinopril held. Will check RUE doppler to r/o DVT given increased circumference Anticoagulation: on low dose lovenox, not yet given today. Awaiting stool results. Subjective: Feeling ok. Had some trouble breathing last night after exposure to perfume, but is doing better now. Has been tolerating clear liquids, having BMs. BMs this morning is quite dark, concern for melena. H/H stable since last night. Is back in rapid atrial fbrillation and was placed on amiodarone drip by Dr. Morton. Dr. Nelson was in to see patient while I was there and will add cardizem drip if she doesn't convert. Objective: Vital Signs Temp Pulse Resp BP Pulse Ox 36.6 C 131 H 20 103/68 97 04/15/17 08:00 04/15/17 08:00 04/15/17 08:00 04/15/17 08:00 04/15/17 08:00 Microbiology 04/11/17 19:12 Blood Panel (PCR) - Final Blood [facility] Laboratory Results 04/15/17 06:10 04/15/17 06:10 04/14/17 04/15/17 04/16/17 05:59 05:59 05:59 Intake Total 3335.3 2692 Output Total 1065 850 Balance 2270.3 1842 PT 15.5 SEC (12.0-15.0) H 04/14/17 05:18 INR 1.21 (0.83-1.16) H 04/14/17 05:18 General: lying in bed, comfortable, NAD Lungs: few rales R mid lung and R base CV: irregularly irregular, rapid Abdomen: +bowel sounds, soft, NT Extremities: edematous. RUE more edematous than LUE. PICC line in RUE. Circumference increased per RN ICD10 Worksheet Patient Problems: Problems Problem Status Onset Dehydration Acute Hypotension Acute Tachycardia Acute Vomiting Acute Pneumonia Active chronic disease mgmt/transitional care Acute
--- NOTE | 2017-04-15 09:46 | PDCARPN ---
Cardiology Progress Note Chief Complaint: N/V/D Assessment/Plan: Assessment: AF N/V/D Plan: 04/15/17 09:44 Continue IV amio--if no success in converting to NSR or rate still >120 bpm, start IV cardizem Re-start AC tx Pt apparently does not tolerate long-term oral cardizem--may consider oral beta- esteban for rate control Subjective: no complaints Reviewed/Discussed With: multidisciplinary team Time Spent With Patient: 25 min Objective: Vital Signs (8 Hrs) Temp Pulse Resp BP Pulse Ox 04/15/17 08:00 36.6 C 131 H 20 103/68 97 04/15/17 04:00 36.6 C 115 H 16 98/61 L 97 Intake/Output (24 Hrs) 04/14/17 04/15/17 04/16/17 05:59 05:59 05:59 Intake Total 3335.3 2692 Output Total 1065 850 Balance 2270.3 1842 Intake: Oral (ml) 100 700 IV Intake (ml) 300 IV Infused (ml) 2935.3 1992 Amiodarone HCl 100 ml @ 100 600 mls/hr IV ONCE ONE Rx #:[id number] Amiodarone HCl 200 ml @ 254.3 16.67 mls/hr IV CONT [facility] Rx#:[id number] Amiodarone HCl 200 ml @ 200 33.333 mls/hr IV ONCE ONE Rx#:[id number] Amiodarone HCl 540 mg In 35 D5w 300 ml @ 16.667 mls/ hr IV ONCE ONE Rx#: [id number] Ampicillin/Sulbactam 1.5 256 200 gm In Ns 50 ml @ 200 mls/ hr IV Q6HRS [facility] Rx#: [id number] NS W/ 20 KCl/L 1,000 ml @ 2425 1457 50 mls/hr IV CONT [facility] Rx #:[id number] Output: Urine (ml) 950 850 Catheter 950 850 NG Tube Output (ml) 115 Large Bore (>12 Maldivian) 115 Right Naris Stomach Other: Intake Quantity Yes Sufficient Number of Stools Bedpan 1 1 Incontinence 1 1 Result Diagrams: 04/15/17 06:10 04/15/17 06:10 - Physical Exam Constitutional: healthy appearing Eyes: PERRL Ears, Nose, Mouth, Throat: moist mucous membranes Cardiovascular: irregularly irregular Peripheral Pulses: 1+: femoral (R), femoral (L) Respiratory: clear to auscultate bilat Gastrointestinal: normoactive bowel sounds Genitourinary: no suprapubic tenderness Skin: no rashes, no abrasions Musculoskeletal: no muscular tenderness Neurologic: AAOx3 Psychiatric: cooperative ICD10 Worksheet Patient Problems: Problems Problem Status Onset Dehydration Acute Hypotension Acute Tachycardia Acute Vomiting Acute Pneumonia Active chronic disease mgmt/transitional care Acute
[2017-04-15] MEDS: SENNOSIDES/DOCUSATE SODIUM TAB PO SCH ×2 (09:50→20:40)
[2017-04-15] MEDS: PRESERVISION AREDS2 FORMULA EYE VIT 1 EACH PO SCH (09:50)
[2017-04-15] MEDS: POLYMYXIN B SULFATE/TMP 10 ML OPHT.BTL EACHEYE SCH (09:52)
[2017-04-15] MEDS ORDERED: PANTOPRAZOLE SODIUM 40 MG TAB PO ONE (09:54)
[2017-04-15] MEDS: ENOXAPARIN 30 MG/0.3 ML SYR SC SCH ×2 (10:26→11:53)
[2017-04-15] MEDS ORDERED: DILTIAZEM 125 MG in D5W 125 ML IV SCH (10:30)
[2017-04-15] MEDS: PANTOPRAZOLE SODIUM 40 MG VIAL IVP SCH (11:10)
[2017-04-15 15:43] LABS: PLATELET COUNT 261 10^3/uL (150-400)
[2017-04-15] MEDS ORDERED: WARFARIN SODIUM 3 MG TAB PO SCH (16:00)
[2017-04-15] MEDS ORDERED: POTASSIUM CL 20 MEQ TAB PO ONE (16:15)
[2017-04-15] MEDS: AMPICILLIN/SULBACTAM 3 GM in NS 100 ML IV SCH ×2 (17:41→23:03)
--- NOTE | 2017-04-15 19:28 | SOAPPROG ---
SOAP Progress Note Assessment/Plan: Assessment:one blood culture positive for yeast. P: Will hold off on treatment until a second culture grows yeast. THis is likely contaminant. 04/13/17 13:31 04/15/17 19:27 Objective: Vital Signs Temp Pulse Resp BP Pulse Ox 98.4 F 146 H 17 117/75 91 L 04/15/17 16:30 04/15/17 18:00 04/15/17 16:30 04/15/17 18:00 04/15/17 18:00 Microbiology 04/11/17 19:12 Blood Panel (PCR) - Final Blood [facility] Laboratory Results 04/15/17 15:00 04/15/17 06:10 04/14/17 04/15/17 04/16/17 05:59 05:59 05:59 Intake Total 3335.3 2692 Output Total 1065 850 400 Balance 2270.3 1842 -400 PT 15.5 SEC (12.0-15.0) H 04/14/17 05:18 INR 1.21 (0.83-1.16) H 04/14/17 05:18 ICD10 Worksheet Patient Problems: Problems Problem Status Onset Dehydration Acute Hypotension Acute Tachycardia Acute Vomiting Acute Pneumonia Active chronic disease mgmt/transitional care Acute
[2017-04-15] MEDS: ATORVASTATIN CALCIUM 40 MG TAB PO SCH (20:40)
[2017-04-16] MEDS: AMPICILLIN/SULBACTAM 3 GM in NS 100 ML IV SCH (05:44)
[2017-04-16] MEDS: LEVOTHYROXINE 75 MCG TAB PO SCH (05:44)
[2017-04-16 06:44] LABS: PLATELET COUNT 249 10^3/uL (150-400)
--- NOTE | 2017-04-16 06:56 | PDCARPN ---
Cardiology Progress Note Chief Complaint: N/V/D Assessment/Plan: Assessment: AF N/V/D Plan: 04/15/17 09:44 Continue IV amio--if no success in converting to NSR or rate still >120 bpm, start IV cardizem Re-start AC tx Pt apparently does not tolerate long-term oral cardizem--may consider oral beta- esteban for rate control 04/16/17 06:54 Rate better controlled--switch to oral lopressor today If additional rate control needed, can try oral digoxin ? Heme + stool--may need further evaluation prior to re-initiation of AC tx Subjective: feels better Reviewed/Discussed With: multidisciplinary team Time Spent With Patient: 25 min Objective: Vital Signs (8 Hrs) Temp Pulse Resp BP Pulse Ox 04/16/17 04:00 36.7 C 107 H 16 103/65 97 04/15/17 23:12 37 C 120 H 16 93/72 L 94 Intake/Output (24 Hrs) 04/15/17 04/16/17 04/17/17 05:59 05:59 05:59 Intake Total 2692 400 Output Total 850 700 Balance 1842 -300 Intake: Oral (ml) 700 400 IV Infused (ml) 1991 Amiodarone HCl 100 ml @ 100 600 mls/hr IV ONCE ONE Rx #:[id number] Amiodarone HCl 200 ml @ 200 33.333 mls/hr IV ONCE ONE Rx#:[id number] Amiodarone HCl 540 mg In 35 D5w 300 ml @ 16.667 mls/ hr IV ONCE ONE Rx#: [id number] Ampicillin/Sulbactam 1.5 200 gm In Ns 50 ml @ 200 mls/ hr IV Q6HRS [facility] Rx#: [id number] NS W/ 20 KCl/L 1,000 ml @ 1457 50 mls/hr IV CONT [facility] Rx #:[id number] Output: Urine (ml) 850 700 Catheter 850 700 Other: Intake Quantity Yes Yes Sufficient Number of Stools Bedpan 1 1 Incontinence 1 Result Diagrams: 04/16/17 05:50 04/15/17 06:10 - Physical Exam Constitutional: healthy appearing Ears, Nose, Mouth, Throat: moist mucous membranes Cardiovascular: irregularly irregular Peripheral Pulses: 1+: femoral (R), femoral (L) Respiratory: clear to auscultate bilat Gastrointestinal: normoactive bowel sounds Genitourinary: no suprapubic tenderness Skin: no rashes Musculoskeletal: no muscular tenderness Neurologic: AAOx3 Psychiatric: cooperative ICD10 Worksheet Patient Problems: Problems Problem Status Onset Dehydration Acute Hypotension Acute Tachycardia Acute Vomiting Acute Pneumonia Active chronic disease mgmt/transitional care Acute
[2017-04-16] MEDS: PRESERVISION AREDS2 FORMULA EYE VIT 1 EACH PO SCH (08:24)
[2017-04-16] MEDS: ENOXAPARIN 40 MG/0.4 ML SYR SC SCH (08:24)
[2017-04-16] MEDS: METOPROLOL TARTRATE 25 MG TAB PO SCH ×2 (08:24→20:51)
[2017-04-16] MEDS: PANTOPRAZOLE SODIUM 40 MG TAB PO SCH (08:24)
[2017-04-16] MEDS: POLYMYXIN B SULFATE/TMP 10 ML OPHT.BTL EACHEYE SCH (09:44)
[2017-04-16] MEDS: CEPACOL LOZENGE PO PRN (09:44)
[2017-04-16] MEDS ORDERED: CEPACOL LOZENGE PO PRN (09:45)
--- NOTE | 2017-04-16 09:45 | SOAPPROG ---
JAMILAH Progress Note Assessment/Plan: Assessment: 86 yo female admitted w/ afib/flutter w/ rvr s/p cardioversion in ER on amiodarone gtt, w/ mild CHF from tachyarrhthymia, vol up, major constipation, massive HH w/ abdominal discomfort and pressure greatly relieved w/ NG tube. -a fib/flutter w/ rvr - now on amiodarone gtt, appreciate cardiology input - will change to oral amio when able per req (and NGT), concern w/ if this will be enough to keep her in sinus, largely dilated LA on echo, somewhat tenuous, may be a challenge to keep in NSR. -new/ongoing LLL PNA/aspiration/pneumonitis - on zosyn, h/o large HH w/ back up pain and pressure from severe constipation and coughing episodes w/ n/v priro to admission putting her at risk of aspiration, recent LLL PNA on prior hospitalization. Placed back on IV PPI, d/c trial of h2 esteban. -hyponatremia - improving w/ NS, following. -CHF w/ elev BNP , cardiomegaly on cxr - bp soft currently, not able to diurese , afib/flutter w/ rvr etiology of CHF, trop mild up after cardioversion, will recheck suspect just from this. -HH/Gerd - will place on PPI IV. Pressure relieved greatly w/ NG tube will cont for now. -Constipation - concern w/ severity at this point w/ n/v , no real significant output in a week, uncomfortable - will place NGT for decompression and see if this helps. Will order suppository again this am. Have tried numerous options w / o success but she does feel crampy this am that something is about to happen. -DVT proph - in on warfarin, INR pending. See above w/ a fib/flutter. INR elev overnight ? now therapeutic, will recheck daily, holding warfarin currently w/ NGT and elev INR last night which resolved rapidly w/ vit K. -will move to PCU when bed avail. 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 -hypoK - K protocol 04/12/17 10:45 04/12/17 11:00 04/16/17 09:39 -afib/flutter -appreciate cards input - amio and lopressor added today, may need dig if not controlled w/ above - did respond well to dig as outpt -pneumonitis - on zosyn, change to po today -mechanical sbo - resolved, NGT out, kahlil clears, will advance, cont w/ good bowel regimen -decreased h/h w/ heme + stool - likely all from event night prior to admission w/ 3+ hours coughing, n/v w/ known large HH and mechanical sbo w/ increased abdominal pressure - ? if small tear/upper GIB during this. Responded well to 1 u prbc, no further evidence of bleeding, will consult Dr. Callahan on for GI to assess. Want to resume full anticoagulation as soon as able due to h/o hypercoag state. Did talk w/ Dr Callahan who feels that if PPI on board she can be anticoagulated - not likely active bleed, more likely from traumatic n/v episode night prior to admission. They will scope if any further h/h loss, signs of bleeding, melena. -h/o dvt/pe/afib - see above, on low dose lovenox currently 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 - oxycontin/oxycodone -HH - cont on PPI 04/16/17 09:49 Subjective: DOing much better, coughing from NGT local irritation Objective: Vital Signs Temp Pulse Resp BP Pulse Ox 36.7 C 129 H 18 116/71 97 04/16/17 07:41 04/16/17 07:41 04/16/17 07:41 04/16/17 07:41 04/16/17 07:41 Microbiology 04/11/17 19:12 Blood Panel (PCR) - Final Blood [facility] Laboratory Results 04/16/17 05:50 04/16/17 05:50 04/15/17 04/16/17 04/17/17 05:59 05:59 05:59 Intake Total 2692 400 Output Total 850 700 Balance 1842 -300 PT 15.5 SEC (12.0-15.0) H 04/14/17 05:18 INR 1.21 (0.83-1.16) H 04/14/17 05:18 Gen: A&O, pleasant, bright affect Heent: nasal cannula, eomi Chest: scattered rhonchi cleared w cough CV: irreg tachy Abd: nl bs soft Ext 1-2+ edema - Pending Discharge Pending Discharge Within 24 Hours: No ICD10 Worksheet Patient Problems: Problems Problem Status Onset Hypotension Acute Tachycardia Acute Vomiting Acute Dehydration Acute chronic disease mgmt/transitional care Acute Pneumonia Active
[2017-04-16] MEDS: SENNOSIDES/DOCUSATE SODIUM TAB PO SCH ×2 (09:46→20:52)
[2017-04-16] MEDS: guaiFENesin 600 MG TAB.ER PO SCH ×2 (12:11→20:51)
[2017-04-16 12:24] LABS: INR 1.33 (0.83-1.16); PROTIME(PATIENT) 16.7 SEC (12.0-15.0)
[2017-04-16] MEDS ORDERED: MICAFUNGIN NA 100 MG in NS 100 ML IV SCH (13:15)
[2017-04-16] MEDS: MICAFUNGIN NA 100 MG in NS 100 ML IV SCH (15:07)
--- NOTE | 2017-04-16 15:20 | ASMTCMCOM ---
CM Note CM Note Notes: CM spoke w/ daughter Geovanna Blake on the phone regarding d/c POC. Geovanna Blake confirms that the plan is to have pt d/c with [facility], RN and PT. Geovanna Blake reports that pt does not do well in a SNF. CM to follow. Plan: [facility], RN and PT Date Signed: 04/16/2017 03:19 PM Electronically Signed By:QASIM Sanabria
[2017-04-16] MEDS ORDERED: WARFARIN SODIUM 2 MG TAB PO SCH (16:00)
[2017-04-16] MEDS ORDERED: WARFARIN SODIUM 2 MG TAB PO ONE (16:00)
[2017-04-16] MEDS ORDERED: NS 500 ML IV ONE (17:42)
[2017-04-16] MEDS: AMOX/CLAVULANATE 500/125 MG TAB PO SCH (20:51)
[2017-04-16] MEDS: ATORVASTATIN CALCIUM 40 MG TAB PO SCH (20:51)
[2017-04-17] MEDS: ONDANSETRON 4 MG/2 ML VIAL IVP PRN (02:42)
[2017-04-17] MEDS: LEVOTHYROXINE 75 MCG TAB PO SCH (05:06)
[2017-04-17] MEDS: oxyCODONE IR 5 MG TAB PO PRN (05:20)
[2017-04-17 05:39] LABS: INR 1.18 (0.83-1.16); PROTIME(PATIENT) 15.2 SEC (12.0-15.0)
--- NOTE | 2017-04-17 07:28 | PDCARPN ---
Cardiology Progress Note Chief Complaint: N/V/D Assessment/Plan: Assessment: AF N/V/D Plan: 04/15/17 09:44 Continue IV amio--if no success in converting to NSR or rate still >120 bpm, start IV cardizem Re-start AC tx Pt apparently does not tolerate long-term oral cardizem--may consider oral beta- esteban for rate control 04/16/17 06:54 Rate better controlled--switch to oral lopressor today If additional rate control needed, can try oral digoxin ? Heme + stool--may need further evaluation prior to re-initiation of AC tx 04/17/17 07:26 CAF currently--increase lopressor to 50 mg po bid for better rate control AC tx OK'd by GI--continue coumadin Hgb lower today but stable Subjective: no new complaints Time Spent With Patient: 25 min Objective: Vital Signs (8 Hrs) Temp Pulse Resp BP Pulse Ox 04/17/17 04:00 36.9 C 118 H 18 113/91 H 98 Intake/Output (24 Hrs) 04/16/17 04/17/17 04/18/17 05:59 05:59 05:59 Intake Total 400 2450 Output Total 700 430 Balance -300 2020 Intake: Oral (ml) 400 2200 IV Intake (ml) 250 Output: Urine (ml) 700 430 Bedpan 280 Catheter 700 150 Other: Intake Quantity Yes Yes Sufficient Number of Stools Bedpan 1 Result Diagrams: 04/17/17 05:15 04/16/17 05:50 - Physical Exam Constitutional: healthy appearing Eyes: PERRL Ears, Nose, Mouth, Throat: moist mucous membranes Cardiovascular: irregularly irregular Peripheral Pulses: 1+: femoral (R), femoral (L) Respiratory: clear to auscultate bilat Gastrointestinal: normoactive bowel sounds Genitourinary: no suprapubic tenderness Skin: no rashes Musculoskeletal: no muscular tenderness Neurologic: AAOx3 Psychiatric: cooperative Lymph, Heme, Immunologic: no lymphadenopathy ICD10 Worksheet Patient Problems: Problems Problem Status Onset Dehydration Acute Hypotension Acute Tachycardia Acute Vomiting Acute Pneumonia Active chronic disease mgmt/transitional care Acute
--- NOTE | 2017-04-17 07:45 | GCON ---
[f rep st] CONSULTATION INFECTIOUS DISEASE CONSULTATION DATE OF CONSULTATION: 04/16/2017 REFERRING PHYSICIAN: Agustina Ralph MD REASON FOR CONSULTATION: Fungemia. CHIEF COMPLAINT: Constipation. HISTORY OF PRESENT ILLNESS: This is an 86-year-old female, with a past medical history significant for polio syndrome with chronic pain, hiatal hernia, GERD, history of DVT and pulmonary embolism, and history of vertebral fracture in 2011 requiring to be in a wheelchair. She apparently was recently admitted from April 04 through the for rapid atrial fibrillation. During that hospitalization, she also had a questionable left lower lobe pneumonia. She was treated with ceftriaxone and azithromycin at the time. Also during her hospital course, she was also having symptoms of esophagitis and reflux, which had improved on an H2 esteban. She was quite constipated during this recent hospitalization. She had an abdominal CT, which showed a small bowel obstruction with trace ascites and bilateral pleural effusions and cholelithiasis. She had blood cultures x2 sets drawn on admission, and was placed initially on cefepime for ongoing coverage for pneumonia. This was later changed to Unasyn, and now she is on Augmentin. Blood cultures in 2 sets on admission have grown out [facility]ra [facility]ata in both sets. Infectious Disease is now consulted for further evaluation and opinion. Discussed with Dr. Ralph and the pharmacy earlier today, and had her started on micafungin. The patient states that she is not on steroids. She has not been on TPN. She has not had a chronic intravenous line in or chronic cerrato. She did have some acid reflux-like symptoms during her previous admission, and that has improved. She has bad oral hygiene with multiple carious teeth and gingivitis. She describes no acute pain in any one region in her mouth or teeth. She is now moving her bowels at least a couple times a day, which is more loose and mushy. She denies any abdominal pain at present. She denies any chest pain at present. She denies any shortness of breath. She has a mild cough. She is on O2 via a nasal cannula at 2 L. REVIEW OF SYSTEMS: GENERAL: No fevers or shaking chills. HEAD: No headaches. EYES: No changes in vision are present. ENT: No sore throat or difficulty swallowing, specific mouth pain, teeth pain, gum pain, difficulty swallowing, ear pain, or ear drainage. CARDIOVASCULAR: Currently no chest pain. RESPIRATORY: No shortness of breath. Mild cough. ABDOMEN: No nausea, abdominal pain, or vomiting at present. She is having some loose stools. : She has a Cerrato catheter in place, which got placed in when she was readmitted. MUSCULOSKELETAL: Denies any specific muscle or joint pains. SKIN: Denies any rashes. The rest of 10-point review of systems essentially negative, except for above. PAST MEDICAL HISTORY: Significant for polio syndrome with chronic pain, hiatal hernia, GERD, DVT, pulmonary embolism, vertebral fracture requiring her to be in a wheelchair as of 2011. PAST SURGICAL HISTORY: Ankle fusion in 195, D and C. ALLERGIES: curare and pineapple. SOCIAL HISTORY: She is a nonsmoker and nondrinker. Lives with her . Her daughter helps as well. FAMILY HISTORY: Reviewed and found to be noncontributory. MEDICATIONS: As per MAR. PHYSICAL EXAMINATION: VITAL SIGNS: Temperature current 36.4, pulse is 138, blood pressure is 101/57, saturations are 90% on room air, respiratory rate is 20. GENERAL: She is resting in bed, in no acute respiratory distress. Awake, alert, and oriented x3. HEENT: Head is normocephalic, atraumatic. Eyes without conjunctival injection. No petechiae. Oropharynx: No posterior pharyngeal erythema or thrush. She has multiple carious teeth with gingivitis. CARDIOVASCULAR: S1, S2. Irregular rate and rhythm. She is tachycardic. RESPIRATORY: Mild coarse breath sounds anteriorly onto the left. ABDOMEN: Obese. Positive bowel sounds in all quadrants. Soft, nontender, nondistended. EXTREMITIES: She has mild lower extremity edema. MUSCULOSKELETAL: No obvious joint effusions. SKIN: No obvious rashes. LABORATORY DATA: White blood cell count is 11.3, hemoglobin 9.0, platelets of 249, neutrophil count is 85%. Sodium 141, potassium 4.4, chloride is 113, bicarb is 20, BUN is 13, creatinine 0.9. Urinalysis on both admit and previous admission were pretty unremarkable. Cultures as stated above. Her imaging results have all been reviewed by me and are stated above. She had an ultrasound of the lower extremity done yesterday, which was negative. ASSESSMENT: 1. Fungemia with Sahra glabrata. 2. Left lower lobe pneumonia versus atelectasis. 3. Poor oral hygiene/gingivitis. 4. Positive stool for occult blood. PLAN: At this point in time, I would start with micafungin for the above positive blood culture. We will check followup blood cultures in 48 hours to ensure clearance. Possible sources could include her poor dentition/gingivitis versus possibly bacterial translocation from her gut. She has no evidence of oral candidiasis or thrush at this point in time, and no active symptoms of GERD at present. She did have an esophagitis and GERD during her previous admission. We will check a followup TTE. Her last TTE was done on April 04 , which appeared without evidence of vegetations. No blood cultures were checked during her prior hospitalization. She has a PICC line in place. This will need to be changed out, hopefully to a peripheral IV. If not, this will need to be changed. We will check a followup chest x-ray, and plan for only short course therapy of antibacterials for the pneumonia going forward. She likely will need further workup regarding this positive stool for occult blood. Care coordinated with the pharmacy and Dr. Ralph earlier today. I thank you very much for providing this opportunity to care for your patient in consultation. /[id number]/MODL [id number]
--- NOTE | 2017-04-17 08:51 | SOAPPROG ---
[facility]AL[facility] Progress Note Assessment/Plan: Assessment: Plan: 04/15/17 09:44 Atrial fibrillation: rapid rate this morning, back on amiodarone drip. Per cardiology, cardizem drip to be added if she doesn't convert. Has tolerated PO cardizem in past, so may need to try beta esteban. On lovenox, but now concern for GI bleeding. H/H stable. Anemia: H/H stable as noted, but now possible melena. Lovenox not yet given this morning pending heme check on stool. Will follow H/H closely to make sure bleeding has stopped. Will not start coumadin yet. Hiatal hernia with reflux: will switch to PO protonix now that she is tolerating PO SBO: tolerated clear liquids yesterday, so will advance diet as tolerated Edema: will buff cap IV, but not diurese as BP still not that high. Lisinopril held. Will check RUE doppler to r/o DVT given increased circumference Anticoagulation: on low dose lovenox, not yet given today. Awaiting stool results. 04/17/17 08:52 Atrial fibrillation: rate not yet controlled. Lopressor increased to 50mg bid today by cardiology. pneumonia: on augmentin anemia: h/h slightly lower today. On PPI. Appreciated GI input. 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 Just had TTE to assess for vegetations. Hx PE/DVT: remains on low dose lovenox, and has restarted coumadin per ok from GI. INR subtherapeutic. Pharmacy dosing. hiatal hernia with GERD: remains on PPI SBO: resolved. BM earlier today. Tolerating regular diet. 04/17/17 08:59 Subjective: In good spirits this morning. Nights are hardest for her--not sleeping all that well. Some cough with deep breath. Working with PT but tired yesterday after doing exercises. Just had echo. Objective: Vital Signs Temp Pulse Resp BP Pulse Ox 36.6 C 128 H 18 106/79 97 04/17/17 08:00 04/17/17 08:00 04/17/17 08:00 04/17/17 08:00 04/17/17 08:00 Microbiology 04/11/17 19:12 Blood Culture - Final Blood Sahra Glabrata Blood Panel (PCR) - Final [facility] Laboratory Results 04/17/17 05:15 04/16/17 05:50 04/16/17 04/17/17 04/18/17 05:59 05:59 05:59 Intake Total 400 2450 Output Total 700 430 Balance -300 2020 PT 15.2 SEC (12.0-15.0) H 04/17/17 05:15 INR 1.18 (0.83-1.16) H 04/17/17 05:15 General: well-appearing, alert, cheerful Neck: no masses, adenopathy Lungs: few scattered rhonchi Cardiovascular: irregular, tachycardic Abdomen: +bowel sounds, soft, NT Extremities: 2+ edema ICD10 Worksheet Patient Problems: Problems Problem Status Onset Dehydration Acute Hypotension Acute Tachycardia Acute Vomiting Acute Pneumonia Active chronic disease mgmt/transitional care Acute
[2017-04-17] MEDS: METOPROLOL TARTRATE 50 MG TAB PO SCH ×2 (10:04→21:15)
[2017-04-17] MEDS: PANTOPRAZOLE SODIUM 40 MG TAB PO SCH (10:05)
[2017-04-17] MEDS: PRESERVISION AREDS2 FORMULA EYE VIT 1 EACH PO SCH (10:06)
[2017-04-17] MEDS: guaiFENesin 600 MG TAB.ER PO SCH ×2 (10:06→21:14)
[2017-04-17] MEDS: SENNOSIDES/DOCUSATE SODIUM TAB PO SCH ×2 (10:06→21:14)
[2017-04-17] MEDS: AMOX/CLAVULANATE 500/125 MG TAB PO SCH ×2 (10:06→21:14)
[2017-04-17] MEDS: ENOXAPARIN 40 MG/0.4 ML SYR SC SCH (10:07)
[2017-04-17] MEDS: POLYMYXIN B SULFATE/TMP 10 ML OPHT.BTL EACHEYE SCH (10:07)
--- NOTE | 2017-04-17 12:12 | ECHO ---
[email or web address] [address] [address] Main: [phone] Fax: Transthoracic Echocardiogram Name: DAWSON CREWS MR#: [id number] Study Date: 04/17/2017 Study Time: 08:19 AM Date of : 1930 Age: 86 year(s) Height: 162.6 cm (64 in.) Weight: 79.83 kg (176 lb.) BSA: 1.85 m2 Gender: Female Examination: Echo Indication: New onset A-Fib, fungemia Image Quality: Contrast: Requested by: Destini Vega BP: 124 mmHg/97 mmHg Heart Rate: Rhythm: Indication: New onset A-Fib, fungemia Procedure Staff [employer] Husband[employer] Teacher: Jose Vidales Reading Physician: Chetan Ochoa Requesting Provider: Conclusions: Normal size left ventricle. No LV hypertrophy. Normal global systolic LV function. EF is 62 %. No regional wall motion abnormality. Diastolic dysfunction is present. . The rhythm is atrial fibrillation. There is no obvious vegetation on the mitral valve or aortic valve.. Normal RV function. The right atrium is mildly to moderately dilated. Moderate mitral valve regurgitation is present. The aortic valve is normal in appearance. The pulmonary artery pressure is mildly increased. The pulmonic valve is normal in appearance and function. There is pericardial fat. There is a pleural effusion present. Measurements: Chambers Valvular Assessment AV/MV Valvular Assessment TV/PV Normal Normal Normal Name Value Range Name Value Range Name Value Range Ao Мария (MM): 2.1 cm (2.2 cm-3.7 AV Vmax: 1.11 m/s (1 m/s-1.7 TR Vmax: 3.14 mm/s ( - ) cm) m/s) TR PGmax: 39 mmHg ( - ) IVSd (2D): 0.9 cm (0.6 cm-1.1 AV maxP mmHg ( - ) syst. PAP: 44 mmHg ( - ) cm) LVOT Vmax: 0.74 m/s (0.7 m/s-1.1 PV Vmax: 0.90 m/s (0.6 m/s-0.9 LVDd (2D): 3.4 cm (3.9 cm-5.3 m/s) m/s) cm) MV E Vmax: 1.07 m/s ( - ) PV PGmax: 3 mmHg ( - ) LVDs (2D): 2.3 cm (2.1 cm-4 cm) LVPWd (2D): 0.9 cm ( - ) LVEF (2D): 62 (>=54 %) Patient: DAWSON CREWS Study Date: 04/17/2017 Page 1 of 2 08:19 AM Continued Measurements: Chambers Valvular Assessment AV/MV Valvular Assessment TV/PV Name Value Name Value Name Value LADs Lon.3 cm MV E' Septal: 0.06 m/s CVP (est.): 5 mmHg LA Area: 16.1 cm2 MV E/E' Septal: 16.60 LA Volume: 58 ml LA Volume Index: 31.4 ml/m2 Findings: Left Ventricle: Normal size left ventricle. No LV hypertrophy. Normal global systolic LV function. EF is 62 %. No regional wall motion abnormality. Diastolic dysfunction is present. . The rhythm is atrial fibrillation. There is no obvious vegetation on the mitral valve or aortic valve.. Right Ventricle: Normal size right ventricle. Normal RV function. Left Atrium: The left atrium is severely dilated. Right Atrium: The right atrium is mildly to moderately dilated. Mitral Valve: The mitral valve is normal in appearance. Moderate mitral valve regurgitation is present. Aortic Valve: The aortic valve is tri-leaflet. The aortic valve is normal in appearance. Tricuspid Valve: Mild tricuspid regurgitation is present. The pulmonary artery pressure is mildly increased. Pulmonic Valve: The pulmonic valve is normal in appearance and function. Aorta: The aorta is normal. Pericardium: No pericardial effusion. There is pericardial fat. There is a pleural effusion present. (No Signature Object) Patient: DAWSON CREWS Study Date: 04/17/2017 Page 2 of 2 08:19 AM [id number]
[2017-04-17] MEDS: MICAFUNGIN NA 100 MG in NS 100 ML IV SCH (12:59)
[2017-04-17] MEDS: CEPACOL LOZENGE PO PRN (14:54)
[2017-04-17] MEDS ORDERED: WARFARIN SODIUM 4 MG TAB PO ONE (16:00)
[2017-04-17] MEDS: ATORVASTATIN CALCIUM 40 MG TAB PO SCH (21:15)
[2017-04-17] MEDS ORDERED: guaiFENesin 200 MG/10 ML UDL PO SCH (23:30)
[2017-04-18] MEDS: oxyCODONE IR 5 MG TAB PO PRN ×2 (04:50→15:23)
[2017-04-18] MEDS: LEVOTHYROXINE 75 MCG TAB PO SCH (04:52)
[2017-04-18 05:51] LABS: INR 1.27 (0.83-1.16); PROTIME(PATIENT) 16.1 SEC (12.0-15.0)
[2017-04-18 06:00] LABS: PLATELET COUNT 247 10^3/uL (150-400)
--- NOTE | 2017-04-18 07:14 | PDCARPN ---
Cardiology Progress Note Chief Complaint: N/V/D Assessment/Plan: Assessment: AF N/V/D Plan: 04/15/17 09:44 Continue IV amio--if no success in converting to NSR or rate still >120 bpm, start IV cardizem Re-start AC tx Pt apparently does not tolerate long-term oral cardizem--may consider oral beta- esteban for rate control 04/16/17 06:54 Rate better controlled--switch to oral lopressor today If additional rate control needed, can try oral digoxin ? Heme + stool--may need further evaluation prior to re-initiation of AC tx 04/17/17 07:26 CAF currently--increase lopressor to 50 mg po bid for better rate control AC tx OK'd by GI--continue coumadin Hgb lower today but stable 04/18/17 07:12 Rate still >100 but under 120 Start low dose digoxin Given current BP, may not be able to up-titrate lopressor further OOB Subjective: doing well Time Spent With Patient: 25 min Objective: Vital Signs (8 Hrs) Temp Pulse Resp BP Pulse Ox 04/18/17 04:28 36.9 C 105 H 15 106/71 97 Intake/Output (24 Hrs) 04/17/17 04/18/17 04/19/17 05:59 05:59 05:59 Intake Total 2450 200 Output Total 430 375 Balance 2020 -175 Intake: Oral (ml) 2200 200 IV Intake (ml) 250 Output: Urine (ml) 430 375 Bedpan 280 Catheter 150 375 Other: Intake Quantity Yes Sufficient Number of Stools Bedpan 1 Result Diagrams: 04/18/17 05:00 04/18/17 05:00 - Physical Exam Constitutional: no apparent distress Eyes: PERRL Ears, Nose, Mouth, Throat: moist mucous membranes Cardiovascular: irregularly irregular Peripheral Pulses: 1+: femoral (R), femoral (L) Respiratory: clear to auscultate bilat Gastrointestinal: normoactive bowel sounds Genitourinary: no suprapubic tenderness Skin: no rashes Musculoskeletal: no muscular tenderness Neurologic: AAOx3 Psychiatric: cooperative ICD10 Worksheet Patient Problems: Problems Problem Status Onset Dehydration Acute Hypotension Acute Tachycardia Acute Vomiting Acute Pneumonia Active chronic disease mgmt/transitional care Acute
[2017-04-18] MEDS: PANTOPRAZOLE SODIUM 40 MG TAB PO SCH (09:25)
[2017-04-18] MEDS: PRESERVISION AREDS2 FORMULA EYE VIT 1 EACH PO SCH (09:25)
[2017-04-18] MEDS: DIGOXIN 125 MCG TAB PO SCH (09:25)
[2017-04-18] MEDS: ENOXAPARIN 40 MG/0.4 ML SYR SC SCH (09:27)
[2017-04-18] MEDS: SENNOSIDES/DOCUSATE SODIUM TAB PO SCH ×2 (09:27→21:21)
[2017-04-18] MEDS: POLYMYXIN B SULFATE/TMP 10 ML OPHT.BTL EACHEYE SCH (09:27)
[2017-04-18] MEDS ORDERED: FUROSEMIDE 20 MG TAB PO ONE (09:30)
[2017-04-18] MEDS: METOPROLOL TARTRATE 50 MG TAB PO SCH ×2 (09:32→21:32)
--- NOTE | 2017-04-18 09:45 | SOAPPROG ---
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 Will give liquid guiafenisen, cough drops prn. -candidiasis + bcx 2/2 - on micafungin per ID, will need PICC removed but pt very difficult peripheral IV. Would like to see if we can get at least one more dose in IV of antifungal this afternoon prior to d/c PICC. Had new bcx this am. Echo w/ no evidence of vegetations. -mild systolic CHF 2/2 afib/flutter/tachyarrhthymia - will try gentle diuresis with 20 mg lasix oral - if bp too soft can give fluids but she is 3rd spacing fluids, volume up, edematous w/ decreased UOP. Would like to encourage increased uop. She is several liters up. Encourage protein in diet as levels low. Transfuse if hg 8. Will consider d/c cerrato soon but want to leave in today w/ trial w/ lasix as it is difficult for her to get to bathroom rapidly. -mechanical sbo - resolved, NGT out, diet regular, having nl bm's/soft stools now -decreased h/h w/ heme + stool- now w/ nl appearing stool, h/h stable, is having bcx repeated today, daily labs - will cont to follow w/ h/h if drops lower to hg 8 consider repeat transfusion for hemodynamic stability but hopefully holding her own, discussed w/ Dr Callahan who feels pt low risk for re-bleed - feels this was 2/2 trauma w/ n/v/hh/sbo. Cont on PPI daily. -h/o dvt/pe/afib - see above, on low dose lovenox currently, warfarin restarted , INR subtherapeutic. In past has been on 2 alt w 3 mg - but may need adjustment w/ amio on board. Pharmacy dosed 4 mg yesterday, will decreased to 3 mg today due to historical h/o rapid response to coumadin and concerned w/ overshoot INR. 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 - oxycontin/oxycodone -HH - cont on PPI 04/16/17 09:49 04/18/17 09:32 Subjective: Feels better, stronger, coughing less Objective: Vital Signs Temp Pulse Resp BP Pulse Ox 36.9 C 105 H 15 106/71 97 04/18/17 04:28 04/18/17 04:28 04/18/17 04:28 04/18/17 04:28 04/18/17 04:28 Microbiology 04/11/17 19:12 Blood Culture - Final Blood [facility] Gl[facility] Blood Panel (PCR) - Final [facility] Laboratory Results 04/18/17 05:00 04/18/17 05:00 04/17/17 04/18/17 04/19/17 05:59 05:59 05:59 Intake Total 2450 200 Output Total 430 375 Balance 2020 -175 PT 16.1 SEC (12.0-15.0) H 04/18/17 05:00 INR 1.27 (0.83-1.16) H 04/18/17 05:00 Gen: A&O, pleasant Heent: eomi, nasal cannula Chest: cta ant bilat CV: irreg irreg Abd: soft nt/nd nl BS Ext bruising RUE s/p neg u/s for DVT, 1-2+ edema ble - Pending Discharge Pending Discharge Within 24 Hours: No ICD10 Worksheet Patient Problems: Problems Problem Status Onset Hypotension Acute Tachycardia Acute Vomiting Acute Dehydration Acute chronic disease mgmt/transitional care Acute Pneumonia Active
[2017-04-18] MEDS: AMOX/CLAVULANATE 500/125 MG TAB PO SCH (11:43)
[2017-04-18] MEDS: guaiFENesin 600 MG TAB.ER PO SCH (11:43)
--- NOTE | 2017-04-18 13:32 | PCMIDPN ---
Assessment/Plan: # Candidemia: unclear source, TTE negative, no RUE DVT, CT abd/pelvis without clear source. Concern for deeper seated nidus of infection. --Difficult to assess how long to treat without knowing source, eval for possible RAJI (discussed w Cards), minimize sedation as much as feasible --eye exam when discharged since has ongoing care at [facility] --will need PICC line changed, first repeat US --awaiting blood culture maturity from today --continue micafungin as typically c. glabrata resistant to fluconazole # RUE swelling: repeat US DVT meds micafungin 100mg IV daily, #3 micro 04/11 blood cx (2/2) C.glabrata 04/18 blood cx (2) pending Subjective: feeling better wants to go home abdominal pain improved since BM wheel chair bound Objective: Vital Signs Temp Pulse Resp BP Pulse Ox 36.6 C 115 H 20 120/68 98 04/18/17 11:24 04/18/17 11:24 04/18/17 11:24 04/18/17 11:24 04/18/17 11:24 Microbiology 04/11/17 19:12 Blood Culture - Final Blood [facility] Gl[facility] Blood Panel (PCR) - Final [facility] Laboratory Results 04/18/17 05:00 04/18/17 05:00 04/17/17 04/18/17 04/19/17 05:59 05:59 05:59 Intake Total 2450 200 Output Total 430 375 Balance 2019 - Physical Exam General Appearance: alert, obese EENT: poor dentition, No thrush Respiratory: normal breath sounds, No accessory muscle use Neck: supple Cardiac/Chest: tachycardia, irregularly irregular Extremities: pedal edema Abdomen: non-tender, soft Skin: pallor, No rash Neuro/Psych: alert, normal mood/affect, oriented x 3 - Line/s RUE PICC Lines: other (associated swellng), No drainage, No erythema - Time Spent With Patient Time Spent with Patient: greater than 35 minutes (care coordinated with Dr. Ralph and reviewed plans for additional testing with patient) Time Spent with Patient: Greater than 35 minutes spent on this patients care, greater than 50% of time spent counseling, educating, and coordinating care regarding the above mentioned plan. ICD10 Worksheet Patient Problems: Problems Problem Status Onset Dehydration Acute Hypotension Acute Tachycardia Acute Vomiting Acute Pneumonia Active chronic disease mgmt/transitional care Acute
[2017-04-18] MEDS: MICAFUNGIN NA 100 MG in NS 100 ML IV SCH (13:37)
[2017-04-18] MEDS: ONDANSETRON DISINTEGRATING 4 MG TAB PO PRN ×2 (15:22→21:20)
[2017-04-18] MEDS: WARFARIN SODIUM 3 MG TAB PO SCH (15:23)
[2017-04-18] MEDS ORDERED: CANN-EASE 2 GM TUBE TP PRN (18:10)
[2017-04-18] MEDS: guaiFENesin 200 MG/10 ML UDL PO SCH (21:21)
[2017-04-18] MEDS: ATORVASTATIN CALCIUM 40 MG TAB PO SCH (21:21)
[2017-04-19] MEDS: oxyCODONE IR 5 MG TAB PO PRN (04:01)
[2017-04-19] MEDS: LEVOTHYROXINE 75 MCG TAB PO SCH (04:01)
[2017-04-19 05:29] LABS: INR 1.54 (0.83-1.16); PROTIME(PATIENT) 18.6 SEC (12.0-15.0)
[2017-04-19] MEDS ORDERED: NS 1,000 ML IV ONE (06:00)
--- NOTE | 2017-04-19 07:16 | PDCARPN ---
Cardiology Progress Note Chief Complaint: N/V/D Assessment/Plan: Assessment: AF N/V/D Plan: 04/15/17 09:44 Continue IV amio--if no success in converting to NSR or rate still >120 bpm, start IV cardizem Re-start AC tx Pt apparently does not tolerate long-term oral cardizem--may consider oral beta- esteban for rate control 04/16/17 06:54 Rate better controlled--switch to oral lopressor today If additional rate control needed, can try oral digoxin ? Heme + stool--may need further evaluation prior to re-initiation of AC tx 04/17/17 07:26 CAF currently--increase lopressor to 50 mg po bid for better rate control AC tx OK'd by GI--continue coumadin Hgb lower today but stable 04/18/17 07:12 Rate still >100 but under 120 Start low dose digoxin Given current BP, may not be able to up-titrate lopressor further OOB 04/19/17 07:14 Rate is still between 90-110 Continue beta-esteban and digoxin--increase beta-esteban if pressure allows ID requests RAJI for further evaluation--will make pt NPO this AM, perform later this AM Subjective: stable Time Spent With Patient: 25 min Objective: Vital Signs (8 Hrs) Temp Pulse Resp BP Pulse Ox 04/19/17 03:44 36.7 C 106 H 18 104/71 97 Intake/Output (24 Hrs) 04/18/17 04/19/17 04/20/17 05:59 05:59 05:59 Intake Total 200 800 Output Total 375 500 Balance -175 300 Intake: Oral (ml) 200 800 Output: Urine (ml) 375 500 Catheter 375 500 Other: Number of Stools Bedpan 1 1 Incontinence 1 Result Diagrams: 04/18/17 05:00 04/18/17 05:00 - Physical Exam Constitutional: no apparent distress Eyes: PERRL Ears, Nose, Mouth, Throat: moist mucous membranes Cardiovascular: irregularly irregular Peripheral Pulses: 1+: femoral (R), femoral (L) Respiratory: no crackles Gastrointestinal: normoactive bowel sounds Genitourinary: no suprapubic tenderness Skin: no rashes Musculoskeletal: no muscular tenderness Neurologic: AAOx3 Psychiatric: cooperative ICD10 Worksheet Patient Problems: Problems Problem Status Onset Dehydration Acute Hypotension Acute Tachycardia Acute Vomiting Acute Pneumonia Active chronic disease mgmt/transitional care Acute
[2017-04-19] MEDS: FUROSEMIDE 20 MG TAB PO SCH (08:17)
[2017-04-19] MEDS: METOPROLOL TARTRATE 50 MG TAB PO SCH ×2 (08:17→22:34)
[2017-04-19] MEDS: PRESERVISION AREDS2 FORMULA EYE VIT 1 EACH PO SCH (08:18)
[2017-04-19] MEDS: PANTOPRAZOLE SODIUM 40 MG TAB PO SCH (08:18)
[2017-04-19] MEDS: guaiFENesin 200 MG/10 ML UDL PO SCH ×2 (08:19→22:34)
[2017-04-19] MEDS: SENNOSIDES/DOCUSATE SODIUM TAB PO SCH ×2 (08:19→22:35)
[2017-04-19] MEDS: ENOXAPARIN 40 MG/0.4 ML SYR SC SCH (08:20)
[2017-04-19] MEDS: POLYMYXIN B SULFATE/TMP 10 ML OPHT.BTL EACHEYE SCH (08:26)
--- NOTE | 2017-04-19 09:40 | SOAPPROG ---
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 -pneumonitis - continues to have cough but greatly improved, cough drops, throat lozenges. -candidiasis + bcx 2/2 - on micafungin per ID, new bcx drawn yesterday and watching, getting PICC d/c today on R, (has DVT now), and placing new one on Left. She will be getting RAJI today - spoke w/ Dr Ochoa. Need new PICC placed yvette in preparation. -mild systolic CHF 2/2 afib/flutter/tachyarrhthymia - cont gentle diuresis-, volume up, edematous w/ decreased UOP. Would like to encourage increased uop. She is several liters up. Encourage protein in diet as levels low. Transfuse if hg 8. UOP improved yesterday. Will d/c cerrato after RAJI later today. -mechanical sbo - resolved, NGT out, diet regular, having nl bm's/soft stools now -decreased h/h w/ heme + stool- now w/ nl appearing stool, h/h stable, is having bcx repeated today, daily labs - will cont to follow w/ h/h if drops lower to hg 8 consider repeat transfusion for hemodynamic stability but hopefully holding her own, discussed w/ Dr Callahan who feels pt low risk for re-bleed - feels this was 2/2 trauma w/ n/v/hh/sbo. Cont on PPI daily. Now w/ DVT RUE as well. Cont anticoag. -RUE DVT - removing PICC, will ask pharm to dose lovenox bridge while awaiting INR to increase w/ warfarin. -h/o dvt/pe/afib - see above, on low dose lovenox currently, warfarin restarted , INR subtherapeutic. Cont double coverage until INR therapeutic. 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 - oxycontin/oxycodone -HH - cont on PPI 04/19/17 09:33 Subjective: Doing ok, still w cough, energy improving Objective: Vital Signs Temp Pulse Resp BP Pulse Ox 36.6 C 111 H 12 123/73 H 99 04/19/17 07:27 04/19/17 07:27 04/19/17 07:27 04/19/17 07:27 04/19/17 07:27 Laboratory Results 04/18/17 05:00 04/18/17 05:00 04/18/17 04/19/17 04/20/17 05:59 05:59 05:59 Intake Total 200 800 Output Total 375 500 Balance -175 300 PT 18.6 SEC (12.0-15.0) H 04/19/17 04:20 INR 1.54 (0.83-1.16) H 04/19/17 04:20 Gen: a&o, pleasant HEENT: eomi NECK: soft/supple Chest: cta b CV: irreg irreg ABD: soft nt nd Ext: RUE w/ edema ecchymoses>L, BLE 1+ edema - Pending Discharge Pending Discharge Within 24 Hours: No ICD10 Worksheet Patient Problems: Problems Problem Status Onset Hypotension Acute Tachycardia Acute Vomiting Acute Dehydration Acute chronic disease [facility]/transitional care Acute Pneumonia Active
[2017-04-19] MEDS ORDERED: ALTEPLASE 2 MG VIAL IVP PRN (09:44)
[2017-04-19] MEDS ORDERED: ENOXAPARIN 40 MG/0.4 ML SYR SC ONE ×2 (10:15→13:00)
[2017-04-19] MEDS: DIGOXIN 125 MCG TAB PO SCH ×2 (12:00→13:28)
--- NOTE | 2017-04-19 16:17 | PDANEPAE ---
ANE History of Present Illness RAJI Exam ANE Past Medical History - Cardiovascular History Hx Hypertension: Yes Hx Coronary Artery / Peripheral Vascular Disease: No Hx CHF / Valvular Disease: Yes Hx Palpitations: Yes Cardiovascular History Comment: A fib - Pulmonary History Hx Recent Upper Respiratory Infection: Yes Hx Oxygen in Use at Home: Yes O2 in Use at Home (L/minute): 2 Hx Sleep Apnea: No Pulmonary History Comment: Pueumonitis - Endocrine History Hx Diabetes: No Hypothyroid: No Hyperthyroid: No Obesity: mild - Chronic Pain History Chronic Pain: Yes ANE Review of Systems Review of Systems: - Exercise capacity METS (RN): 2 METS - Systems Cardiac: Reports: irregular heart rate Respiratory: Reports: cough, shortness of breath Genitourinary: Reports: incontinence (Wiley) Muscolosketal: Reports: other (Left leg paralysis) ANE Patient History - Allergies Allergies/Adverse Reactions: CURARE Allergy (Uncoded 04/11/17 13:17) PINEAPPLE Allergy (Uncoded 04/11/17 13:17) - Home Medications Home medications: home medication list seen and reviewed Home Medications: Levothyroxine [Synthroid 75 mcg (*)] 75 mcg PO DAILY06 04/04/12 [Last Taken 07/17 00:00] Polymyxin B Sulfate/Tmp [Polytrim Opht Drops (*)] 1 drops EACHEYE DAILY [Last Taken 04/04/17] Salsalate 750 mg PO TID 04/04/12 [Last Taken 04/03/17 20:00] oxyCODONE CR [Oxycontin] 10 mg PO BID 04/04/12 [Last Taken 04/03/17 20:00] Atorvastatin Calcium [Lipitor 40 mg (*)] 40 mg PO HS 04/04/17 [Last Taken ] C/E/Zn/Cu/OM3/DHA/EPA/LUT/ZEAX [Preservision Areds 2 Softgel] 1 each PO DAILY [Last Taken Unknown] Denosumab [Prolia] 60 mg SQ .[id number] 04/04/17 [Last Taken 03/26/17] Docusate Sodium [Colace 100 MG (*)] 100 mg PO DAILY 04/04/17 [Last Taken Unknown ] Ergocalciferol [Vitamin D2 (*)] 50,000 unit PO Q14D 04/04/17 [Last Taken ] Herbals/Supplements -Info Only 1 each PO DAILY 04/04/17 [Last Taken Unknown] Polyethylene Glycol 3350 [Miralax 17 gm (*)] 17 gm PO Q2D 04/04/17 [Last Taken 04/02/17] Propylene Glycol/Peg 400 [SYSTANE 0.3-0.4% EYE DROPS] 1 drop OP DAILY PRN [Last Taken Unknown] Tolterodine Tartrate [Detrol LA 2MG (*)] 4 mg PO HS 04/04/17 [Last Taken ] Warfarin Sodium [Coumadin 2MG (*)] 2 mg PO Q2D@16 04/04/17 [Last Taken 04/03/17] Warfarin Sodium [Coumadin 3MG (*)] 3 mg PO Q2D@16 04/04/17 [Last Taken 04/02/17] oxyCODONE IR [Oxycodone Ir (*)] 5 mg PO Q4-6PRN PRN 04/04/17 [Last Taken 16:00] - NPO status NPO Status: no food or drink >8 hours - Anes Hx Anes Hx: no prior problems - Smoking Hx Smoking Status: Never smoked - Family Anes Hx Family Anes Hx: none ANE Labs/Vital Signs - Labs Result Diagrams: 04/18/17 05:00 04/18/17 05:00 - Vital Signs Blood Pressure: 123/73 Heart Rate: 128 Respiratory Rate: 18 O2 Sat (%): 97 Height: 165 cm Weight: 80 kg ANE Physical Exam - Airway Neck exam: FROM Mallampati Score: Class 3 Mouth exam: poor dentition - Cardiovascular Cardiovascular: irregularly irregular - ASA Status ASA Status: IV ANE Anesthesia Plan Anesthesia Plan: GA with mask (tiva)
--- NOTE | 2017-04-19 16:17 | PCMIDPN ---
Assessment/Plan: Assessment: sahra glabrata fungemia -- unclear source. No indwelling lines when the patient's symptoms began - perhaps stretching back prior to last admission on 04/04/17 for SVT. TTE did not show clear valvular lesions. RAJI upcoming. Another possibility for fungemia may be mycotic aneurysm absent endocarditis although this is quite uncommon. Will await results of RAJI prior to investigating less likely etiologies. Plan: 1. Continue micafungin. 2. Follow up on results of RAJI. Subjective: Patient resting in her bed. PICC removed secondary to DVT and swollen arm. No fevers. No rash. Objective: micafungin #4 Vital Signs Temp Pulse Resp BP Pulse Ox 36.7 C 128 H 18 123/73 H 97 04/19/17 11:20 04/19/17 16:16 04/19/17 16:16 04/19/17 16:16 04/19/17 16:16 Microbiology 04/11/17 19:21 Blood Culture - Final Blood Sahra Glabrata Laboratory Results 04/18/17 05:00 04/18/17 05:00 04/18/17 04/19/17 04/20/17 05:59 05:59 05:59 Intake Total 200 800 Output Total 375 500 650 Balance -175 300 -650 - Physical Exam General Appearance: WD/WN, alert, no apparent distress, non-toxic Respiratory: lungs clear, normal breath sounds, No respiratory distress Cardiac/Chest: regular rate, rhythm, tachycardia Extremities: non-tender, No normal inspection Skin: normal color, warm/dry, No rash Neuro/Psych: alert, normal mood/affect, oriented x 3 ICD10 Worksheet Patient Problems: Problems Problem Status Onset Dehydration Acute Hypotension Acute Tachycardia Acute Vomiting Acute Pneumonia Active chronic disease mgmt/transitional care Acute
--- NOTE | 2017-04-19 16:20 | POSTANESTH ---
Post Anesthetic Evaluation Cardiovascular Status: Similar to Pre-Op Cond Respiratory Status: Similar to Pre-op Cond. Level of Consciousness/Mental Status: Can Participate in Eval Pain Control: Adequate, Prn Tx Ordered Nausea/Vomiting Control: Adequate, Prn Tx Ordered Complications Possibly Related to Anesthesia: None Noted
[2017-04-19] MEDS: WARFARIN SODIUM 3 MG TAB PO SCH (17:19)
[2017-04-19] MEDS: MICAFUNGIN NA 100 MG in NS 100 ML IV SCH (17:20)
[2017-04-19] MEDS: ONDANSETRON DISINTEGRATING 4 MG TAB PO PRN (19:56)
[2017-04-19] MEDS: ATORVASTATIN CALCIUM 40 MG TAB PO SCH (22:35)
[2017-04-19] MEDS: ENOXAPARIN 80 MG/0.8 ML SYR SC SCH (22:35)
[2017-04-20] MEDS: oxyCODONE IR 5 MG TAB PO PRN (04:15)
[2017-04-20] MEDS: LEVOTHYROXINE 75 MCG TAB PO SCH (04:16)
[2017-04-20 04:37] LABS: INR 1.94 (0.83-1.16); PROTIME(PATIENT) 22.2 SEC (12.0-15.0)
[2017-04-20] MEDS: SENNOSIDES/DOCUSATE SODIUM TAB PO SCH ×2 (08:37→20:20)
[2017-04-20] MEDS: PRESERVISION AREDS2 FORMULA EYE VIT 1 EACH PO SCH (08:37)
[2017-04-20] MEDS: FUROSEMIDE 20 MG TAB PO SCH (08:38)
[2017-04-20] MEDS: DIGOXIN 125 MCG TAB PO SCH (08:38)
[2017-04-20] MEDS: PANTOPRAZOLE SODIUM 40 MG TAB PO SCH (08:38)
[2017-04-20] MEDS: METOPROLOL TARTRATE 50 MG TAB PO SCH ×2 (08:39→20:21)
[2017-04-20] MEDS: guaiFENesin 200 MG/10 ML UDL PO SCH ×2 (08:39→20:19)
[2017-04-20] MEDS: POLYMYXIN B SULFATE/TMP 10 ML OPHT.BTL EACHEYE SCH (08:40)
[2017-04-20 09:39] LABS: PLATELET COUNT 251 10^3/uL (150-400)
[2017-04-20] MEDS ORDERED: METOLAZONE 5 MG TAB PO ONE (09:54)
[2017-04-20] MEDS ORDERED: METOPROLOL TARTRATE 25 MG TAB PO ONE (10:30)
--- NOTE | 2017-04-20 10:54 | SOAPPROG ---
SOCALVIN Progress Note Assessment/Plan: Assessment: Plan: 04/15/17 09:44 Atrial fibrillation: rapid rate this morning, back on amiodarone drip. Per cardiology, cardizem drip to be added if she doesn't convert. Has tolerated PO cardizem in past, so may need to try beta esteban. On lovenox, but now concern for GI bleeding. H/H stable. Anemia: H/H stable as noted, but now possible melena. Lovenox not yet given this morning pending heme check on stool. Will follow H/H closely to make sure bleeding has stopped. Will not start coumadin yet. Hiatal hernia with reflux: will switch to PO protonix now that she is tolerating PO SBO: tolerated clear liquids yesterday, so will advance diet as tolerated Edema: will buff cap IV, but not diurese as BP still not that high. Lisinopril held. Will check RUE doppler to r/o DVT given increased circumference Anticoagulation: on low dose lovenox, not yet given today. Awaiting stool results. 04/17/17 08:52 Atrial fibrillation: rate not yet controlled. Lopressor increased to 50mg bid today by cardiology. pneumonia: on augmentin anemia: h/h slightly lower today. On PPI. Appreciated GI input. 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 Just had TTE to assess for vegetations. Hx PE/DVT: remains on low dose lovenox, and has restarted coumadin per ok from GI. INR subtherapeutic. Pharmacy dosing. hiatal hernia with GERD: remains on PPI SBO: resolved. BM earlier today. Tolerating regular diet. 04/17/17 08:59 04/20/17 10:57 atrial fibrillation: rate remains inadequately controlled despite amiodarone, metoprolol, dig. Will check dig level. On Lovenox bridge while INR increases Fungemia: remains on micafungin. RAJI without vegetations, but final report not yet in chart. Etiology remains unclear. Dental source? Anemia: hgb stable CHF: due to atrial fibrillation. Edematous. On low dose lasix to help move fluid. Wiley out; pt concerns about being able to urinate, so will monitor closely. RUE DVT: now on treatment dose enoxaparin until therapeutic on coumadin. PICC line out of R arm and new line placed in L arm. 04/20/17 11:00 04/20/17 11:03 04/20/17 11:04 Subjective: No new complaints. OT in room this morning with plan to have pt be up in chair. She was quite weak, and had significant trouble transferring to chair, even with 2 people assisting her. Objective: Vital Signs Temp Pulse Resp BP Pulse Ox 36.4 C 129 H 18 121/80 H 97 04/20/17 08:00 04/20/17 08:38 04/20/17 08:00 04/20/17 08:00 04/20/17 08:00 Microbiology 04/11/17 19:21 Blood Culture - Final Blood Sahra Glabrata Laboratory Results 04/20/17 09:25 04/18/17 05:00 04/19/17 04/20/17 04/21/17 05:59 05:59 05:59 Intake Total 800 125 Output Total 500 1650 Balance 300 -1525 PT 22.2 SEC (12.0-15.0) H 04/20/17 04:05 INR 1.94 (0.83-1.16) H 04/20/17 04:05 General: good spirits, awake, alert, sitting on edge of bed Neck: no masses, adenopathy Lungs: clear bilaterally Cardiovascular: irregularly irregular, tachycardic Abdomen: +bowel sounds, soft Extremities: RUE edematous compared to L, new PICC line in LUE. BLE edema ICD10 Worksheet Patient Problems: Problems Problem Status Onset Dehydration Acute Hypotension Acute Tachycardia Acute Vomiting Acute Pneumonia Active chronic disease mgmt/transitional care Acute
[2017-04-20] MEDS: ENOXAPARIN 80 MG/0.8 ML SYR SC SCH ×2 (11:03→20:20)
--- NOTE | 2017-04-20 11:16 | SOAPPROG ---
SOCALVIN Progress Note Assessment/Plan: Assessment: Plan: 04/15/17 09:44 Atrial fibrillation: rapid rate this morning, back on amiodarone drip. Per cardiology, cardizem drip to be added if she doesn't convert. Has tolerated PO cardizem in past, so may need to try beta esteban. On lovenox, but now concern for GI bleeding. H/H stable. Anemia: H/H stable as noted, but now possible melena. Lovenox not yet given this morning pending heme check on stool. Will follow H/H closely to make sure bleeding has stopped. Will not start coumadin yet. Hiatal hernia with reflux: will switch to PO protonix now that she is tolerating PO SBO: tolerated clear liquids yesterday, so will advance diet as tolerated Edema: will buff cap IV, but not diurese as BP still not that high. Lisinopril held. Will check RUE doppler to r/o DVT given increased circumference Anticoagulation: on low dose lovenox, not yet given today. Awaiting stool results. 04/17/17 08:52 Atrial fibrillation: rate not yet controlled. Lopressor increased to 50mg bid today by cardiology. pneumonia: on augmentin anemia: h/h slightly lower today. On PPI. Appreciated GI input. 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 Just had TTE to assess for vegetations. Hx PE/DVT: remains on low dose lovenox, and has restarted coumadin per ok from GI. INR subtherapeutic. Pharmacy dosing. hiatal hernia with GERD: remains on PPI SBO: resolved. BM earlier today. Tolerating regular diet. 04/17/17 08:59 04/20/17 10:57 atrial fibrillation: rate remains inadequately controlled despite amiodarone, metoprolol, dig. Will check dig level. On Lovenox bridge while INR increases Fungemia: remains on micafungin. RAJI without vegetations, but final report not yet in chart. Etiology remains unclear. Dental source? Anemia: hgb stable CHF: due to atrial fibrillation. Edematous. On low dose lasix to help move fluid. Wiley out; pt concerns about being able to urinate, so will monitor closely. RUE DVT: now on treatment dose enoxaparin until therapeutic on coumadin. PICC line out of R arm and new line placed in L arm. 04/20/17 11:00 04/20/17 11:03 04/20/17 11:04 Subjective: Addendum to previous note: pt having some discomfort in her R ear. Modest amount cerumen noted in both ears, but canals not completely blocked. She is requesting irrigation, so have ordered that. Objective: Vital Signs Temp Pulse Resp BP Pulse Ox 36.4 C 129 H 18 121/80 H 97 04/20/17 08:00 04/20/17 08:38 04/20/17 08:00 04/20/17 08:00 04/20/17 08:00 Microbiology 04/11/17 19:21 Blood Culture - Final Blood [facility] Glabr[facility] Laboratory Results 04/20/17 09:25 04/18/17 05:00 04/19/17 04/20/17 04/21/17 05:59 05:59 05:59 Intake Total 800 125 Output Total 500 1650 Balance 300 -1525 PT 22.2 SEC (12.0-15.0) H 04/20/17 04:05 INR 1.94 (0.83-1.16) H 04/20/17 04:05 ICD10 Worksheet Patient Problems: Problems Problem Status Onset Dehydration Acute Hypotension Acute Tachycardia Acute Vomiting Acute Pneumonia Active chronic disease mgmt/transitional care Acute
--- NOTE | 2017-04-20 11:56 | SOAPPROG ---
JAMILAH Progress Note Assessment/Plan: Assessment: 86-year-old female currently admitted with fungemia. Cardiology has been following her given her atrial fibrillation with poorly controlled heart rates. Additionally she has evidence of congestive heart failure likely on the basis of her atrial fibrillation. Mumtaz yesterday did not indicate any evidence of valve involvement with her fungemia. There was evidence of pleural effusions and she continues to be volume overloaded. Plan: 1. I have increased her metoprolol up to 75 mg twice daily. Hopefully this will result in improvement in her heart rates. 2. I have given her a dose of Zaroxolyn 2.5 mg which he will take today. We will follow her net fluid balance carefully. 3. She continues on Lovenox and Coumadin for systemic anticoagulation both in the setting of her atrial fibrillation and upper extremity DVT. 4. We will follow along with you. 04/20/17 11:55 Subjective: The patient was seen and examined. Her chart was reviewed. I reviewed her transesophageal echo from yesterday. There were no suspicious findings to suggest fungal endocarditis. There was evidence of pleural effusions. Her ejection fraction appeared to be normal without significant valvular disease. Today she has no significant complaints other than weakness. She continues to be in atrial fibrillation with poorly controlled heart rates. Objective: Vital Signs Temp Pulse Resp BP Pulse Ox 36.4 C 129 H 18 121/80 H 97 04/20/17 08:00 04/20/17 08:38 04/20/17 08:00 04/20/17 08:00 04/20/17 08:00 Microbiology 04/11/17 19:21 Blood Culture - Final Blood Sahra Glabrata Laboratory Results 04/20/17 09:25 04/18/17 05:00 04/19/17 04/20/17 04/21/17 05:59 05:59 05:59 Intake Total 800 125 Output Total 500 1650 Balance 300 -1525 PT 22.2 SEC (12.0-15.0) H 04/20/17 04:05 INR 1.94 (0.83-1.16) H 04/20/17 04:05 Physical Exam - Physical Exam General Appearance: WD/WN Neck: non-tender, full range of motion Respiratory: lungs clear Cardiac/Chest: edema (Positive pitting edema bilaterally to the mid sanchez), tachycardia, irregularly irregular, No gallop, No JVD Abdomen: non-tender, soft Pelvic Exam: deferred Rectal: deferred Neuro/Psych: alert, oriented x 3 ICD10 Worksheet Patient Problems: Problems Problem Status Onset Dehydration Acute Hypotension Acute Tachycardia Acute Vomiting Acute Pneumonia Active chronic disease mgmt/transitional care Acute
--- NOTE | 2017-04-20 13:44 | PCMIDPN ---
Assessment/Plan: Assessment/Plan: 1. Fungemia secondary C. glabrata: - currenlty on micafungin - f/u blood cx from 04/18/17 so far ngtd - new picc line placed yesterday -RAJI per cardiology notes states no vegetation.official report pending - will need eye exam in the OP. - no definitive deep seated source found thus far -Continue with therapy - Labs improved Meds micafungin 100 daily - 04/16/17---#2 from negative blood cultures and new picc line. Subjective: afebrile. feels ok. denies sob, or abd pain. some loose stools. picc line changed to LUE. Objective: Vital Signs Temp Pulse Resp BP Pulse Ox 36.7 C 121 H 18 162/85 H 96 04/20/17 12:00 04/20/17 12:00 04/20/17 12:00 04/20/17 12:00 04/20/17 12:00 Microbiology 04/11/17 19:21 Blood Culture - Final Blood Sahra Glabrata Laboratory Results 04/20/17 09:25 04/18/17 05:00 04/19/17 04/20/17 04/21/17 05:59 05:59 05:59 Intake Total 800 125 Output Total 500 1650 Balance 300 -1525 - Physical Exam General Appearance: alert, no apparent distress, other (sitting in wheelchair) Respiratory: coarse breath sounds (mild) Cardiac/Chest: irregularly irregular Extremities: swelling, other (LUE picc line) Abdomen: normal bowel sounds, non-tender, soft, No distended Skin: No erythema ICD10 Worksheet Patient Problems: Problems Problem Status Onset Dehydration Acute Hypotension Acute Tachycardia Acute Vomiting Acute Pneumonia Active chronic disease mgmt/transitional care Acute
[2017-04-20] MEDS: MICAFUNGIN NA 100 MG in NS 100 ML IV SCH (13:59)
--- NOTE | 2017-04-20 16:10 | ASMTCMCOM ---
CM Note CM Note Notes: 04/20/2017 Case Management Note Met w/pt to discuss PT recommendation for SNF rehab. Pt had prior experience at [facility] in 2011 and wishes to avoid SNF rehab if possible. Discussed possibly hiring unskilled care at home for support in addition to [facility]. Pt said she will d/c with IV abx. We discussed the pros and cons of home IV infusion services. Faxed referral to [employer] and [employer] for pricing. Pt requested phone call to daughter Jamal to discuss d/c poc. Left VM at [phone]. Case Management plans to meet with pt and family tomorrow to discuss options for d/c : [facility] Home care with IV infusion services and unskilled support vs. SNF rehab. Case Management to follow. Date Signed: 04/20/2017 04:10 PM Electronically Signed By:Karen Venegas RN
[2017-04-20] MEDS: WARFARIN SODIUM 3 MG TAB PO SCH (16:27)
[2017-04-20] MEDS: ATORVASTATIN CALCIUM 40 MG TAB PO SCH (20:20)
[2017-04-21] MEDS: oxyCODONE IR 5 MG TAB PO PRN (00:46)
[2017-04-21 03:52] LABS: PLATELET COUNT 254 10^3/uL (150-400)
[2017-04-21 04:01] LABS: INR 2.59 (0.83-1.16); PROTIME(PATIENT) 27.7 SEC (12.0-15.0)
[2017-04-21] MEDS: LEVOTHYROXINE 75 MCG TAB PO SCH (06:19)
[2017-04-21] MEDS: ONDANSETRON 4 MG/2 ML VIAL IVP PRN (11:03)
[2017-04-21] MEDS: FUROSEMIDE 20 MG TAB PO SCH (11:10)
[2017-04-21] MEDS: guaiFENesin 200 MG/10 ML UDL PO SCH ×2 (11:10→21:10)
[2017-04-21] MEDS: PANTOPRAZOLE SODIUM 40 MG TAB PO SCH (11:11)
[2017-04-21] MEDS: METOPROLOL TARTRATE 50 MG TAB PO SCH ×2 (11:11→21:15)
[2017-04-21] MEDS: PRESERVISION AREDS2 FORMULA EYE VIT 1 EACH PO SCH (11:11)
[2017-04-21] MEDS: DIGOXIN 125 MCG TAB PO SCH (11:11)
[2017-04-21] MEDS: ENOXAPARIN 80 MG/0.8 ML SYR SC SCH (11:12)
[2017-04-21] MEDS: SENNOSIDES/DOCUSATE SODIUM TAB PO SCH ×2 (11:12→21:11)
[2017-04-21] MEDS: POLYMYXIN B SULFATE/TMP 10 ML OPHT.BTL EACHEYE SCH (11:13)
[2017-04-21] MEDS: MICAFUNGIN NA 100 MG in NS 100 ML IV SCH (13:56)
--- NOTE | 2017-04-21 14:08 | SOAPPROG ---
SOCALVIN Progress Note Assessment/Plan: Assessment: Plan: 04/15/17 09:44 Atrial fibrillation: rapid rate this morning, back on amiodarone drip. Per cardiology, cardizem drip to be added if she doesn't convert. Has tolerated PO cardizem in past, so may need to try beta esteban. On lovenox, but now concern for GI bleeding. H/H stable. Anemia: H/H stable as noted, but now possible melena. Lovenox not yet given this morning pending heme check on stool. Will follow H/H closely to make sure bleeding has stopped. Will not start coumadin yet. Hiatal hernia with reflux: will switch to PO protonix now that she is tolerating PO SBO: tolerated clear liquids yesterday, so will advance diet as tolerated Edema: will buff cap IV, but not diurese as BP still not that high. Lisinopril held. Will check RUE doppler to r/o DVT given increased circumference Anticoagulation: on low dose lovenox, not yet given today. Awaiting stool results. 04/17/17 08:52 Atrial fibrillation: rate not yet controlled. Lopressor increased to 50mg bid today by cardiology. pneumonia: on augmentin anemia: h/h slightly lower today. On PPI. Appreciated GI input. 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 Just had TTE to assess for vegetations. Hx PE/DVT: remains on low dose lovenox, and has restarted coumadin per ok from GI. INR subtherapeutic. Pharmacy dosing. hiatal hernia with GERD: remains on PPI SBO: resolved. BM earlier today. Tolerating regular diet. 04/17/17 08:59 04/20/17 10:57 atrial fibrillation: rate remains inadequately controlled despite amiodarone, metoprolol, dig. Will check dig level. On Lovenox bridge while INR increases Fungemia: remains on micafungin. RAJI without vegetations, but final report not yet in chart. Etiology remains unclear. Dental source? Anemia: hgb stable CHF: due to atrial fibrillation. Edematous. On low dose lasix to help move fluid. Wiley out; pt concerns about being able to urinate, so will monitor closely. RUE DVT: now on treatment dose enoxaparin until therapeutic on coumadin. PICC line out of R arm and new line placed in L arm. 04/20/17 11:00 04/20/17 11:03 04/20/17 11:04 04/21/17 14:10 atrial fibrillation with RVR: rate still not controlled despite metoprolol 75mg bid and digoxin 125mcg daily. Digoxin level low this morning. Cardiology following and appreciate input. Increase digoxin to 250mcg daily? Therapeutic now on coumadin, so will d/c lovenox. Fungemia: remains on micafungin. Appreciate ID input. Source not yet identified. CHF: on lasix and given dose zaroxolyn yesterday per cardiology note. RUE edema looks better RUE DVT: looks less edematous today. Therapeutic on coumadin now Contact lenses: need changing. Daughter plans to go to Dr. Rodriguez's office tomorrow to see if this can be done while she is here. 04/21/17 14:12 04/21/17 14:13 04/21/17 14:16 04/21/17 14:18 Subjective: Concerned about getting her contacts changed. Need changing every two weeks and she is 2-3 weeks overdue because of recent hospital admissions overlapping her appointments. Has been having a headache and some mild nausea which she thinks might be related to not getting them changed. Metoprolol dose increased by Dr. Quevedo yesterday, but heart rate remains elevated. Digoxin level subtherapeutic this morning. Objective: Vital Signs Temp Pulse Resp BP Pulse Ox 36.2 C 121 H 20 99/71 L 99 04/21/17 11:57 04/21/17 11:57 04/21/17 11:57 04/21/17 11:57 04/21/17 11:57 Laboratory Results 04/21/17 03:20 04/18/17 05:00 04/20/17 04/21/17 04/22/17 05:59 05:59 05:59 Intake Total 125 600 300 Output Total 1650 1100 275 Balance -1525 -500 25 PT 27.7 SEC (12.0-15.0) H 04/21/17 03:20 INR 2.59 (0.83-1.16) H 04/21/17 03:20 General: lying in bed, awake, alert, NAD Lungs: bilateral rales in mid and lower lung hernandez CV: irregularly irregular, tachycardic Abdomen: +bowel sounds, soft, NT Extremities: RUE looks less edematous than previously. Mild edema both lower extremities. ICD10 Worksheet Patient Problems: Problems Problem Status Onset Dehydration Acute Hypotension Acute Tachycardia Acute Vomiting Acute Pneumonia Active chronic disease mgmt/transitional care Acute
--- NOTE | 2017-04-21 15:07 | PDCARPN ---
Cardiology Progress Note Assessment/Plan: Atrial Fibrillation: Initially paroxysmal, now persistent wiht suboptimally controlled ventricular rate. Patient has been in sinus rhythm at times during the earlier part of her hospital stay. She was loaded with intravenous amiodarone and switched to oral amiodarone. Amiodarone discontinued on 04/16 for unclear reasons. - Will resume p.o. amiodarone to assist with rate control and potentially a return to sinus rhythm. - Continue systemic anticoagulation; INR is therapeutic today. Hypertension: Blood pressure is somewhat labile. - Continues on metoprolol. -Consider addition of an additional antihypertensive agent if blood pressure remains persistently elevated. Acute Diastolic CHF: Has persistent lower extremity edema; bilateral pleural effusions by CXR on 04/17; good response to single dose of metolazone yesterday; fluid balance negative by 1.5 L. - Increase daily furosemide to 40 mg. 04/21/17 15:04 Subjective: Very weak. Objective: Vital Signs (8 Hrs) Temp Pulse Resp BP Pulse Ox 04/21/17 11:57 36.2 C 121 H 20 99/71 L 99 04/21/17 07:32 36.8 C 126 H 20 153/111 H 99 Intake/Output (24 Hrs) 04/20/17 04/21/17 04/22/17 05:59 05:59 05:59 Intake Total 125 600 300 Output Total 1650 1100 275 Balance -1525 -500 25 Intake: Oral (ml) 500 300 IV Intake (ml) 25 IV Infused (ml) 100 100 Micafungin Na 100 mg In 100 100 Ns 100 ml @ 100 mls/hr IV Q24H [facility] Rx#:[id number] Output: Urine (ml) 1650 1100 275 Bedpan 1100 275 Catheter 1550 Incontinence 100 Other: Weight 80 kg Number of Voids Bedpan 2 1 Incontinence 1 1 1 Number of Stools Bedpan 1 1 Incontinence 1 Result Diagrams: 04/21/17 03:20 04/18/17 05:00 - Physical Exam Constitutional: other (Chronically ill appearing.) Eyes: anicteric sclera Ears, Nose, Mouth, Throat: moist mucous membranes Cardiovascular: irregularly irregular (tachycardic) Respiratory: clear to auscultate bilat (anteriorly) Gastrointestinal: normoactive bowel sounds, no tenderness, no masses Skin: other (2-3+ edema) Neurologic: AAOx3 Psychiatric: not anxious ICD10 Worksheet Patient Problems: Problems Problem Status Onset Hypotension Acute Tachycardia Acute Vomiting Acute Dehydration Acute chronic disease mgmt/transitional care Acute Pneumonia Active
--- NOTE | 2017-04-21 15:51 | ASMTCMCOM ---
CM Note CM Note Notes: 04/21/2017 Case Management Note Met w/pt and discussed d/c plan on the phone with daughter Geovanna Thomas [phone]. Pt and family are refusing SNF rehab. Discussed [facility] RN PT with infusion service costs from [employer] at $305/week minimum. Pt and Jamal feel that cost is reasonable. Case Management expressed concerns regarding pt ability to transfer from bed to chair or from chair to commode. Geovanna Thomas in agreement, requested information on unskilled care agencies. Left brochures and blue book in pt room closet at Geovanna Thomas's request. Geovanna Thomas to hire unskilled care agency for d/c needs. Case Management d/c poc: [facility] with [facility] IV therapy and unskilled care. Case Management to follow and confirm with Geovanna Thomas that plans are in place prior to d/c. Date Signed: 04/21/2017 03:50 PM Electronically Signed By:Karen Venegas RN
[2017-04-21] MEDS: AMIODARONE HCL 200 MG TAB PO SCH (16:50)
[2017-04-21] MEDS: WARFARIN SODIUM 3 MG TAB PO SCH (16:51)
[2017-04-21] MEDS: ATORVASTATIN CALCIUM 40 MG TAB PO SCH (21:11)
[2017-04-22] MEDS: LEVOTHYROXINE 75 MCG TAB PO SCH (06:03)
[2017-04-22 06:13] LABS: PLATELET COUNT 227 10^3/uL (150-400)
[2017-04-22] MEDS: PANTOPRAZOLE SODIUM 40 MG TAB PO SCH (07:53)
[2017-04-22] MEDS: METOPROLOL TARTRATE 50 MG TAB PO SCH (08:21)
[2017-04-22] MEDS: PRESERVISION AREDS2 FORMULA EYE VIT 1 EACH PO SCH (08:21)
[2017-04-22] MEDS: guaiFENesin 200 MG/10 ML UDL PO SCH ×2 (08:21→21:19)
[2017-04-22] MEDS: FUROSEMIDE 40 MG TAB PO SCH (08:22)
[2017-04-22] MEDS: AMIODARONE HCL 200 MG TAB PO SCH (08:22)
[2017-04-22] MEDS: POLYMYXIN B SULFATE/TMP 10 ML OPHT.BTL EACHEYE SCH (08:24)
[2017-04-22] MEDS: SENNOSIDES/DOCUSATE SODIUM TAB PO SCH ×2 (08:24→21:19)
[2017-04-22 09:17] LABS: INR 3.77 (0.83-1.16); PROTIME(PATIENT) 36.9 SEC (12.0-15.0)
--- NOTE | 2017-04-22 09:55 | PCMIDPN ---
Assessment/Plan: Assessment/Plan: * Sahra glabrata fungemia: No clear etiology for patient's candidemia. RAJI without evidence of endocarditis and fungemia has cleared. Plan 2 weeks of micafungin post negative blood cultures (# 4). Patient is now status post PICC line change. Weekly CBC and CMP on therapy. Will need outpatient ophthalmological exam in the setting of candidemia. Will arrange for follow-up with Dr. Vega in our office next week prior to completion of antibiotics. 04/22/17 09:50 04/22/17 09:56 Subjective: Patient feeling stronger. Sitting up at bedside with physical therapy currently. Objective: Vital Signs Temp Pulse Resp BP Pulse Ox 36.6 C 101 H 14 118/99 H 97 04/22/17 07:41 04/22/17 07:41 04/22/17 07:41 04/22/17 07:41 04/22/17 07:41 Laboratory Results 04/22/17 06:10 04/22/17 08:00 04/21/17 04/22/17 04/23/17 05:59 05:59 05:59 Intake Total 600 750 Output Total 1100 1400 Balance -500 -650 Micafungin # 4 post negative blood cultures - Physical Exam General Appearance: alert, no apparent distress EENT: poor dentition, No conjunctival petechiae Respiratory: lungs clear, No respiratory distress Cardiac/Chest: tachycardia, irregularly irregular Abdomen: non-tender, No distended - Line/s LUE PICC Lines: No drainage, No erythema ICD10 Worksheet Patient Problems: Problems Problem Status Onset Dehydration Acute Hypotension Acute Tachycardia Acute Vomiting Acute Pneumonia Active chronic disease [facility]/transitional care Acute
--- NOTE | 2017-04-22 09:59 | PDIAF ---
- Diagnosis Diagnosis: Candidemia Code Status: Full Code - Medication Management Discharge Medications: Medications to Continue on Transfer Levothyroxine [Synthroid 75 mcg (*)] 75 mcg PO DAILY06 04/04/12 [Last Taken 07/17 00:00] Polymyxin B Sulfate/Tmp [Polytrim Opht Drops (*)] 1 drops EACHEYE DAILY [Last Taken 04/04/17] Salsalate 750 mg PO TID 04/04/12 [Last Taken 04/03/17 20:00] oxyCODONE CR [Oxycontin] 10 mg PO BID 04/04/12 [Last Taken 04/03/17 20:00] Atorvastatin Calcium [Lipitor 40 mg (*)] 40 mg PO HS 04/04/17 [Last Taken ] C/E/Zn/Cu/OM3/DHA/EPA/LUT/ZEAX [Preservision Areds 2 Softgel] 1 each PO DAILY [Last Taken Unknown] Denosumab [Prolia] 60 mg SQ [id number] 04/04/17 [Last Taken 03/26/17] Docusate Sodium [Colace 100 MG (*)] 100 mg PO DAILY 04/04/17 [Last Taken Unknown ] Ergocalciferol [Vitamin D2 (*)] 50,000 unit PO Q14D 04/04/17 [Last Taken ] Herbals/Supplements -Info Only 1 each PO DAILY 04/04/17 [Last Taken Unknown] Polyethylene Glycol 3350 [Miralax 17 gm (*)] 17 gm PO Q2D 04/04/17 [Last Taken 04/02/17] Propylene Glycol/Peg 400 [SYSTANE 0.3-0.4% EYE DROPS] 1 drop OP DAILY PRN [Last Taken Unknown] Tolterodine Tartrate [Detrol LA 2MG (*)] 4 mg PO HS 04/04/17 [Last Taken ] Warfarin Sodium [Coumadin 2MG (*)] 2 mg PO Q2D@16 04/04/17 [Last Taken 04/03/17] Warfarin Sodium [Coumadin 3MG (*)] 3 mg PO Q2D@16 04/04/17 [Last Taken 04/02/17] oxyCODONE IR [Oxycodone Ir (*)] 5 mg PO Q4-6PRN PRN 04/04/17 [Last Taken 16:00] Famotidine [Pepcid 20 MG (*)] 20 mg PO BID tab 04/09/17 [Last Taken Unknown] Lisinopril [Zestril 10 mg (*)] 10 mg PO DAILY tab 04/09/17 [Last Taken Unknown] amLODIPine BESYLATE [Norvasc 5 mg (*)] 5 mg PO DAILY tab 04/09/17 [Last Taken Unknown] Rebrander Antibiotics: Micafungin 100 mg IV Q 24 hr Jail Antibiotic Stop Date: 05/02/17 Discharge Medications: Refer to the Discharge Home Medication list for PRN reason. PICC Care - Routine: Yes - Orders Services needed: Home Longterm Care Face to Face: I certify that this patient was under my care and that I had the required [id number] encounter meeting the encounter requirements on the discharge day. My findings support the fact that the patient is homebound as defined in Home Care Face to Face Continued: CMS Chapter 7 Medicare Benefits Manual 30.1.1 , The condition of the patient is such that there exists a normal inability to leave home and consequently, leaving home would require a considerable and taxing effort. - Labs/Radiology CBC w/diff Date: 04/25/17 (Weekly Q ) CMP Date: 04/25/17 (Weekly Q ) Call or Fax Lab and Imaging Results to: Dr. Vega, - Follow Up Care Current Providers and Referrals: Agustina aRlph MD [Primary Care Provider] - As per Instructions Destini Vega MD [Medical Doctor] - 05/01/17 1:00 pm
[2017-04-22] MEDS: DIGOXIN 125 MCG TAB PO SCH (12:20)
[2017-04-22] MEDS: MICAFUNGIN NA 100 MG in NS 100 ML IV SCH (14:15)
--- NOTE | 2017-04-22 15:20 | PDCARPN ---
Cardiology Progress Note Assessment/Plan: Atrial Fibrillation: Initially paroxysmal, now persistent with suboptimally controlled ventricular rate. Patient has been in sinus rhythm at times during the earlier part of her hospital stay. She was loaded with intravenous amiodarone and switched to oral amiodarone. Amiodarone discontinued on 04/16 for unclear reasons. - Amiodarone resumed 04/21 to assist with rate control and potentially a return to sinus rhythm; rate control slightly improved. - Continue systemic anticoagulation; INR is therapeutic today. Hypertension: Blood pressure is somewhat labile. - Continues on metoprolol. - Consider addition of an additional antihypertensive agent if blood pressure remains persistently elevated. Acute Diastolic CHF: Has persistent lower extremity edema; bilateral pleural effusions by CXR on 04/17; good response to single dose of metolazone on Saturday producing fluid balance negative by 1.5 L in 24 Hr. - Furosemide increased to 40 mg daily starting today. 04/22/17 15:17 Subjective: No CV complaints. Reviewed/Discussed With: family Objective: Vital Signs (8 Hrs) Temp Pulse Resp BP Pulse Ox 04/22/17 12:00 37.0 C 99 12 140/117 H 97 04/22/17 07:41 36.6 C 101 H 14 118/99 H 97 Intake/Output (24 Hrs) 04/21/17 04/22/17 04/23/17 05:59 05:59 05:59 Intake Total 600 750 Output Total 1100 1400 Balance -500 -650 Intake: Oral (ml) 500 650 IV Infused (ml) 100 100 Micafungin Na 100 mg In 100 100 Ns 100 ml @ 100 mls/hr IV Q24H [facility] Rx#:[id number] Output: Urine (ml) 1100 1400 Bedpan 1100 1150 Incontinence 250 Other: Output Comment Incontinence some of urine missed bed lopez. approx. 50 -75 ml Number of Voids Bedpan 2 3 2 Incontinence 1 1 Number of Stools Bedpan 1 1 Result Diagrams: 04/22/17 06:10 04/22/17 08:00 - Physical Exam Constitutional: no apparent distress, other (chronically ill-appearing) Ears, Nose, Mouth, Throat: moist mucous membranes Cardiovascular: no murmurs, no gallops, irregularly irregular Respiratory: clear to auscultate bilat (anteriorly) Gastrointestinal: normoactive bowel sounds, no tenderness, no masses Skin: other (2-3+ LE edema) Neurologic: AAOx3 Psychiatric: not anxious ICD10 Worksheet Patient Problems: Problems Problem Status Onset Dehydration Acute Hypotension Acute Tachycardia Acute Vomiting Acute Pneumonia Active chronic disease mgmt/transitional care Acute
[2017-04-22] MEDS ORDERED: METOPROLOL TARTRATE 50 MG TAB PO SCH (16:20)
--- NOTE | 2017-04-22 16:28 | SOAPPROG ---
JAMILAH Progress Note Assessment/Plan: Assessment: Plan: 04/14/17 10:26 SBO- mechanical appears to have resolved. d/c NG tube, start clears, reduce IVF's edema/effusions--reduce IVF's, will likely benefit from diuresis as BP stabilizes anemia--stable repeat HGB this pm pain--ok hiatal hernia with reflux--continue iv protonix for now, see how po goes a fib--d/c amio drip, start amio po 400 mg daily, dose change as per cards anticoag--lovenox for now, d/c inr checks for now 04/22/17 16:26 rapid a fib, improving. Increase metoprolol to 100 mg BID, BP looks stable to mildly elevated anticoag--INR increased hold coumadin today, resume at 2.5 mg daily tomorrow ( was at 3 mg daily) follow with HC anemia--stable fungemia--cleared on micafungin, continue for 10 more days dispo--plan on home tomorrow with HC, IV care and private pay Subjective: Ghislaine is feeling generally better. Energy is low. Planning on home with HC, IV therapy and some private pay care. No new sx. Edema improving. Eating fair Objective: Vital Signs Temp Pulse Resp BP Pulse Ox 37.0 C 99 12 140/117 H 97 04/22/17 12:00 04/22/17 12:00 04/22/17 12:00 04/22/17 12:00 04/22/17 12:00 Laboratory Results 04/22/17 06:10 04/22/17 08:00 04/21/17 04/22/17 04/23/17 05:59 05:59 05:59 Intake Total 600 750 Output Total 1100 1400 Balance -500 -650 PT 36.9 SEC (12.0-15.0) H D 04/22/17 08:00 INR 3.77 (0.83-1.16) H 04/22/17 08:00 Gen: Bright, pleasant Lungs: diminished BS Heart: irreg irreg 100-115's range at bedside BP ok Abd + bs soft LE's improved edema INR high 3's Hgb stable ICD10 Worksheet Patient Problems: Problems Problem Status Onset Dehydration Acute Hypotension Acute Tachycardia Acute Vomiting Acute Pneumonia Active chronic disease mgmt/transitional care Acute
[2017-04-22] MEDS: WARFARIN SODIUM 3 MG TAB PO SCH (17:09)
[2017-04-22] MEDS: oxyCODONE IR 5 MG TAB PO PRN (17:39)
[2017-04-22] MEDS: ONDANSETRON 4 MG/2 ML VIAL IVP PRN (17:54)
[2017-04-22] MEDS: METOPROLOL TARTRATE 100 MG TAB PO SCH (21:17)
[2017-04-22] MEDS: ATORVASTATIN CALCIUM 40 MG TAB PO SCH (21:18)
[2017-04-23] MEDS: oxyCODONE IR 5 MG TAB PO PRN (03:28)
[2017-04-23] MEDS: LEVOTHYROXINE 75 MCG TAB PO SCH (03:30)
[2017-04-23 03:57] LABS: PLATELET COUNT 221 10^3/uL (150-400)
[2017-04-23 04:07] LABS: INR 3.85 (0.83-1.16); PROTIME(PATIENT) 37.5 SEC (12.0-15.0)
--- NOTE | 2017-04-23 08:16 | PDIAF ---
- Diagnosis Diagnosis: Candidemia Code Status: Full Code - Medication Management Discharge Medications: Medications to Continue on Transfer Levothyroxine [Synthroid 75 mcg (*)] 75 mcg PO DAILY06 04/04/12 [Last Taken 07/17 00:00] Polymyxin B Sulfate/Tmp [Polytrim Opht Drops (*)] 1 drops EACHEYE DAILY [Last Taken 04/04/17] Salsalate 750 mg PO TID 04/04/12 [Last Taken 04/03/17 20:00] oxyCODONE CR [Oxycontin] 10 mg PO BID 04/04/12 [Last Taken 04/03/17 20:00] Atorvastatin Calcium [Lipitor 40 mg (*)] 40 mg PO HS 04/04/17 [Last Taken ] C/E/Zn/Cu/OM3/DHA/EPA/LUT/ZEAX [Preservision Areds 2 Softgel] 1 each PO DAILY [Last Taken Unknown] Denosumab [Prolia] 60 mg SQ [id number] 04/04/17 [Last Taken 03/26/17] Docusate Sodium [Colace 100 MG (*)] 100 mg PO DAILY 04/04/17 [Last Taken Unknown ] Ergocalciferol [Vitamin D2 (*)] 50,000 unit PO Q14D 04/04/17 [Last Taken ] Herbals/Supplements -Info Only 1 each PO DAILY 04/04/17 [Last Taken Unknown] Polyethylene Glycol 3350 [Miralax 17 gm (*)] 17 gm PO Q2D 04/04/17 [Last Taken 04/02/17] Propylene Glycol/Peg 400 [SYSTANE 0.3-0.4% EYE DROPS] 1 drop OP DAILY PRN [Last Taken Unknown] Tolterodine Tartrate [Detrol LA 2MG (*)] 4 mg PO HS 04/04/17 [Last Taken ] oxyCODONE IR [Oxycodone Ir (*)] 5 mg PO Q4-6PRN PRN 04/04/17 [Last Taken 16:00] Amiodarone HCl [Pacerone (*)] 400 mg PO DAILY 30 Days tab 04/23/17 [Last Taken Unknown] Digoxin [Lanoxin 125 mcg (RX)] 62.5 mcg PO DAILY AT 10AM 30 Days #30 tab [Last Taken Unknown] Metoprolol Tartrate [Lopressor 100 mg (*)] 100 mg PO BID 30 Days #60 tab [Last Taken Unknown] Micafungin Na [Mycamine 100Mg Vial] 100 mg IV Q24H 9 Days #9 vial 04/23/17 [ Last Taken Unknown] Pantoprazole Sodium [Protonix 40mg (*)] 40 mg PO DAILY tab 04/23/17 [Last Taken Unknown] Polyethylene Glycol 3350 [Miralax 17 gm (*)] 17 gm PO DAILY PRN pkt 04/23/17 [ Last Taken Unknown] Polymyxin B Sulfate/Tmp [Polytrim Opht Drops (*)] 1 drops EACHEYE DAILY opht.btl 04/23/17 [Last Taken Unknown] Warfarin Sodium [Coumadin 2.5MG (*)] 2.5 mg PO ONCE@16 tab 04/23/17 [Last Taken Unknown] Household Assistant Antibiotics: Micafungin 100 mg IV Q 24 hr [employer] Antibiotic Stop Date: 05/02/17 Discharge Medications: Refer to the Discharge Home Medication list for PRN reason. PICC Care - Routine: Yes - Orders Services needed: Home Longterm Care Face to Face: I certify that this patient was under my care and that I had the required [id number] encounter meeting the encounter requirements on the discharge day. My findings support the fact that the patient is homebound as defined in Home Care Face to Face Continued: CMS Chapter 7 Medicare Benefits Manual 30.1.1 , The condition of the patient is such that there exists a normal inability to leave home and consequently, leaving home would require a considerable and taxing effort. Diet Recommendation: no restrictions on diet Diet Texture: Regular Texture Diet - Labs/Radiology CBC w/diff Date: 04/25/17 (Weekly Q ) CMP Date: 04/25/17 (Weekly Q ) Call or Fax Lab and Imaging Results to: Dr. Vega, - Follow Up Care Current Providers and Referrals: Agustina Ralph MD [Primary Care Provider] - As per Instructions Destini Vega MD [Medical Doctor] - 05/01/17 1:00 pm
--- NOTE | 2017-04-23 09:52 | SOAPPROG ---
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 -pneumonitis - continues to have cough but greatly improved, cough drops, throat lozenges. -candidiasis + bcx 2/2 - on micafungin per ID, new bcx drawn yesterday and watching, getting PICC d/c today on R, (has DVT now), and placing new one on Left. She will be getting RAJI today - spoke w/ Dr Ochoa. Need new PICC placed yvette in preparation. -mild systolic CHF 2/2 afib/flutter/tachyarrhthymia - cont gentle diuresis-, volume up, edematous w/ decreased UOP. Would like to encourage increased uop. She is several liters up. Encourage protein in diet as levels low. Transfuse if hg 8. UOP improved yesterday. Will d/c cerrato after RAJI later today. -mechanical sbo - resolved, NGT out, diet regular, having nl bm's/soft stools now -decreased h/h w/ heme + stool- now w/ nl appearing stool, h/h stable, is having bcx repeated today, daily labs - will cont to follow w/ h/h if drops lower to hg 8 consider repeat transfusion for hemodynamic stability but hopefully holding her own, discussed w/ Dr Callahan who feels pt low risk for re-bleed - feels this was 2/2 trauma w/ n/v/hh/sbo. Cont on PPI daily. Now w/ DVT RUE as well. Cont anticoag. -RUE DVT - removing PICC, will ask pharm to dose lovenox bridge while awaiting INR to increase w/ warfarin. -h/o dvt/pe/afib - see above, on low dose lovenox currently, warfarin restarted , INR subtherapeutic. Cont double coverage until INR therapeutic. 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 Want her to have 1 u prbc this am prior to d/c which will help w/ tachycardia/3rd spacing as well. Appreciate cards input/assistance w/ her. She will have f/u with cardiology. INR supratherapeutic today holding warfarin x 1 day -htn - was on amlodipine/lisinopril as outpt - now on lopressor - bp's difficult to obtain w/ good accuracy currently w/ DVT RUE, PICC in LUE, getting in lower leg. She traditionally has responded well to anti-htn meds and has had bp 120/80 range for many years w/ above. Once PICC out of LUE will be able to obtain more accurate bp readings and will cont to adjust meds appropriately. -candidiasis - c glabrata - apprec ID input - cont on micafungin, will receive at home w/ infusion assistance arranged with jessika dial, has f/u in ID clinic next week w/ Dr Vega, is to complete 14 day course s/p neg bcx today is day 5, ID requesting meds through May 02. Has upcoming ophthalmology appt and will have them f/u on thorough eye exam r/o candidiasis source w/ eyes. No clear source found. RAJI neg. Repeat bcx neg. -anemia - requesting 1 uprbc this am as h/h dropped further and this will help w / tachycardia, 3rd spacing, low protein stores. -HH - cont PPI, failed trial w/ h2 esteban -RUE DVT - cont warfarin, hold this afternoon due to elev INR, resume tomorrow, f/u in clinic next week to recheck INR. -diastolic CHF w/ edema, tachyarrhtymia - improving, see above, has responded to diuresis, was several liters up from rec'g volume resuscitation initially in part -h/o mechanical sbo - resolved, regular bm, cont on bowel regimen -h/o dvt pe - on warfarin see above -dispo - ok to d/c this afternoon if home IV infusion arranged for micafungin, additional assistance in home, [facility] - [facility] [place] working on arrangements w/ CM. Subjective: Doing better, optimistic about going home, stronger daily Objective: Vital Signs Temp Pulse Resp BP Pulse Ox 36.8 C 98 16 126/116 H 97 04/23/17 08:00 04/23/17 08:00 04/23/17 08:00 04/23/17 08:00 04/23/17 08:00 Laboratory Results 04/23/17 03:35 04/23/17 03:35 04/22/17 04/23/17 04/24/17 05:59 05:59 05:59 Intake Total 750 600 Output Total 1400 650 250 Balance -650 -50 -250 PT 37.5 SEC (12.0-15.0) H 04/23/17 03:35 INR 3.85 (0.83-1.16) H 04/23/17 03:35 GEn: A&O, bright affect HEENT: eomi Neck: soft/supple CHEST: cta b CV: irreg irreg RUE: marked swelling compared to LUE ABD: soft nt/nd EXT: 2+ edema, has not been wearing compression stockings - Pending Discharge Pending Discharge Within 24 Hours: Yes Pending Discharge Date: 04/24/17 Pending Discharge Time: 11:00 ICD10 Worksheet Patient Problems: Problems Problem Status Onset Hypotension Acute Tachycardia Acute Vomiting Acute Dehydration Acute chronic disease mgmt/transitional care Acute Pneumonia Active
--- NOTE | 2017-04-23 09:58 | PDIAF ---
- Diagnosis Diagnosis: Candidemia Code Status: Full Code - Medication Management Discharge Medications: Medications to Continue on Transfer Levothyroxine [Synthroid 75 mcg (*)] 75 mcg PO DAILY06 04/04/12 [Last Taken 07/17 00:00] Polymyxin B Sulfate/Tmp [Polytrim Opht Drops (*)] 1 drops EACHEYE DAILY [Last Taken 04/04/17] Salsalate 750 mg PO TID 04/04/12 [Last Taken 04/03/17 20:00] oxyCODONE CR [Oxycontin] 10 mg PO BID 04/04/12 [Last Taken 04/03/17 20:00] Atorvastatin Calcium [Lipitor 40 mg (*)] 40 mg PO HS 04/04/17 [Last Taken ] C/E/Zn/Cu/OM3/DHA/EPA/LUT/ZEAX [Preservision Areds 2 Softgel] 1 each PO DAILY [Last Taken Unknown] Denosumab [Prolia] 60 mg SQ .[id number] 04/04/17 [Last Taken 03/26/17] Docusate Sodium [Colace 100 MG (*)] 100 mg PO DAILY 04/04/17 [Last Taken Unknown ] Ergocalciferol [Vitamin D2 (*)] 50,000 unit PO Q14D 04/04/17 [Last Taken ] Herbals/Supplements -Info Only 1 each PO DAILY 04/04/17 [Last Taken Unknown] Polyethylene Glycol 3350 [Miralax 17 gm (*)] 17 gm PO Q2D 04/04/17 [Last Taken 04/02/17] Propylene Glycol/Peg 400 [SYSTANE 0.3-0.4% EYE DROPS] 1 drop OP DAILY PRN [Last Taken Unknown] Tolterodine Tartrate [Detrol LA 2MG (*)] 4 mg PO HS 04/04/17 [Last Taken ] oxyCODONE IR [Oxycodone Ir (*)] 5 mg PO Q4-6PRN PRN 04/04/17 [Last Taken 16:00] Amiodarone HCl [Pacerone (*)] 400 mg PO DAILY 30 Days tab 04/23/17 [Last Taken Unknown] Digoxin [Lanoxin 125 mcg (RX)] 62.5 mcg PO DAILY AT 10AM 30 Days #30 tab [Last Taken Unknown] Furosemide [Lasix 40 MG (*)] 20 mg PO DAILY 30 Days #30 tab 04/23/17 [Last Taken Unknown] Metoprolol Tartrate [Lopressor 100 mg (*)] 100 mg PO BID 30 Days #60 tab [Last Taken Unknown] Micafungin Na [Mycamine 100Mg Vial] 100 mg IV Q24H 9 Days #9 vial 04/23/17 [ Last Taken Unknown] Pantoprazole Sodium [Protonix 40mg (*)] 40 mg PO DAILY tab 04/23/17 [Last Taken Unknown] Polyethylene Glycol 3350 [Miralax 17 gm (*)] 17 gm PO DAILY PRN pkt 04/23/17 [ Last Taken Unknown] Polymyxin B Sulfate/Tmp [Polytrim Opht Drops (*)] 1 drops EACHEYE DAILY opht.btl 04/23/17 [Last Taken Unknown] Warfarin Sodium [Coumadin 2.5MG (*)] 2.5 mg PO ONCE@16 tab 04/23/17 [Last Taken Unknown] Nursing Home Antibiotics: Micafungin 100 mg IV Q 24 hr [employer] Antibiotic Stop Date: 05/02/17 Discharge Medications: Refer to the Discharge Home Medication list for PRN reason. PICC Care - Routine: Yes - Orders Services needed: Home Intermediate Care Face to Face: I certify that this patient was under my care and that I had the required [id number] encounter meeting the encounter requirements on the discharge day. My findings support the fact that the patient is homebound as defined in Home Care Face to Face Continued: CMS Chapter 7 Medicare Benefits Manual 30.1.1 , The condition of the patient is such that there exists a normal inability to leave home and consequently, leaving home would require a considerable and taxing effort. Diet Recommendation: no restrictions on diet Diet Texture: Regular Texture Diet - Labs/Radiology CBC w/diff Date: 04/25/17 (Weekly Q ) CMP Date: 04/25/17 (Weekly Q ) Call or Fax Lab and Imaging Results to: Dr. Vega, - Follow Up Care Current Providers and Referrals: Agustina Ralph MD [Primary Care Provider] - As per Instructions Destini Vega MD [Medical Doctor] - 05/01/17 1:00 pm
[2017-04-23] MEDS: guaiFENesin 200 MG/10 ML UDL PO SCH (10:13)
[2017-04-23] MEDS: AMIODARONE HCL 200 MG TAB PO SCH (10:15)
[2017-04-23] MEDS: SENNOSIDES/DOCUSATE SODIUM TAB PO SCH (10:16)
[2017-04-23] MEDS: PANTOPRAZOLE SODIUM 40 MG TAB PO SCH (10:16)
[2017-04-23] MEDS: METOPROLOL TARTRATE 100 MG TAB PO SCH (10:16)
[2017-04-23] MEDS: PRESERVISION AREDS2 FORMULA EYE VIT 1 EACH PO SCH (10:16)
[2017-04-23] MEDS: POLYMYXIN B SULFATE/TMP 10 ML OPHT.BTL EACHEYE SCH (10:17)
[2017-04-23] MEDS: DIGOXIN 125 MCG TAB PO SCH (10:17)
[2017-04-23] MEDS: FUROSEMIDE 40 MG TAB PO SCH (10:17)
[2017-04-23 12:34] VITALS: BP 119/96; PULSE 111; RESP 15; TEMP 98.5; O2SAT 98
[2017-04-23] MEDS: MICAFUNGIN NA 100 MG in NS 100 ML IV SCH (12:54)
--- NOTE | 2017-04-23 14:11 | PDCARPN ---
Cardiology Progress Note Assessment/Plan: Atrial Fibrillation: Initially paroxysmal, now persistent. Patient has been in sinus rhythm at times during the earlier part of her hospital stay. She was loaded with intravenous amiodarone and switched to oral amiodarone. Amiodarone discontinued on 04/16 for unclear reasons. - Amiodarone resumed 04/21 to assist with rate control and potentially a return to sinus rhythm; rate control acceptable. - Continue systemic anticoagulation. Hypertension: Blood pressure is somewhat labile. - Continues on metoprolol. - Consider addition of an additional antihypertensive agent if blood pressure remains persistently elevated. Acute Diastolic CHF: Has persistent lower extremity edema; bilateral pleural effusions by CXR on 04/17; good response to single dose of metolazone on Saturday producing fluid balance negative by 1.5 L in 24 Hr. - Furosemide increased to 40 mg daily. Disposition: Patient being discharged today. - Will have office staff at [facility] contact her to arrange follow up with me in 2 to 3 weeks. Will consider scheduling cardioversion at that visit. 04/23/17 14:08 Subjective: No CV complaints. Objective: Vital Signs (8 Hrs) Temp Pulse Resp BP Pulse Ox 04/23/17 12:30 36.9 C 111 H 15 119/96 H 98 04/23/17 08:00 36.8 C 98 16 126/116 H 97 Intake/Output (24 Hrs) 04/22/17 04/23/17 04/24/17 05:59 05:59 05:59 Intake Total 750 600 Output Total 1400 650 250 Balance -650 -50 -250 Intake: Oral (ml) 650 600 IV Infused (ml) 100 Micafungin Na 100 mg In 100 Ns 100 ml @ 100 mls/hr IV Q24H [facility] Rx#:[id number] Output: Urine (ml) 1400 650 250 Bedpan 1150 150 Incontinence 250 500 250 Other: Output Comment Incontinence some of urine missed bed lopez. approx. 50 -75 ml Number of Voids Bedpan 3 1 1 Incontinence 1 1 1 Number of Stools Bedpan 1 Result Diagrams: 04/23/17 03:35 04/23/17 03:35 - Physical Exam Constitutional: no apparent distress, other (Chronically ill appearing) Eyes: anicteric sclera Cardiovascular: irregularly irregular Respiratory: clear to auscultate bilat Skin: other (2+ edema) Neurologic: AAOx3 Psychiatric: not anxious ICD10 Worksheet Patient Problems: Problems Problem Status Onset Dehydration Acute Hypotension Acute Tachycardia Acute Vomiting Acute Pneumonia Active chronic disease mgmt/transitional care Acute
[2017-04-23] MEDS ORDERED: WARFARIN SODIUM 2.5 MG TAB PO ONE (16:30)
--- NOTE | 2017-04-23 21:04 | GDS ---
[f rep st] DISCHARGE SUMMARY Summary: The patient is an 86-year-old female, who was admitted on 04/11/2017, after being home for a few days, after a prior admission for about 1 week. Prior to this, her original admission was for left lower lobe pneumonia and atrial fibrillation with a rapid ventricular response. The AFib/flutter was thought to be likely secondary to her pneumonia. The pneumonia was treated. She went back into sinus rhythm. She was anticoagulated chronically already on Coumadin for history of DVT/PE and she was sent home. She was having some constipation issues during that hospitalization. Upon returning home, she was doing well for the first day and a half or 2 days, but then she began to feel ill again. Her constipation worsened, she became fatigued, and had an overnight where she developed lots of nausea and vomiting, continued ongoing constipation, worsening fatigue, and shortness of breath. The next day, home health nurse was visiting her, and called when she was vomiting up enliwg-wrwtfh-rteqvqyxj emesis and looking more fatigued. She was sent immediately to the hospital, and in the ER on presentation, her blood pressure rapidly decreased to the point of 60/40. She became more and more somnolent. She was back in atrial fib/flutter with a rapid ventricular response rate up to 188. The decision was made to cardiovert her immediately, which she tolerated okay, and she was admitted to the ICU initially. Her H and H dropped from her prior admission somewhat significantly and there was concern of a GI bleed versus leakage from the ongoing pressure, with the constipation, bowel obstruction possibility, and hiatal hernia. She was given an NG tube for decompression, which immediately she had 700 cc out, and some of this was consistent with a chocolate Ensure shake she had just consumed prior to coming in. She initially had blood cultures drawn, and there was a question of pneumonitis versus recurrent pneumonia. She was placed on cefepime overnight, which was switched to Unasyn the next morning. She continued to have constipation. NG tube remained in place, but as this progressed and discomfort increased, a CT abdomen and pelvis done which showed evidence of a mechanical small bowel obstruction with no clear end point. Fortunately, not long after her CT scan, she started to move her bowels and she felt much better. Her NG tube was removed. She did have a heme-positive stool and had been transfused 1 unit of packed red cells. This was somewhat complicated given her need for anticoagulation, and this was discussed with GI physician, Dr. Grimm, who felt she was at very low risk of rebleed and to continue proton pump inhibitor, monitor closely. IV access was diificult and a PICC line was placed on admission to the ICU. She developed edema in this arm, u/s neg for DVT. Then, her blood cultures returned positive, 2/, with Sahra glabrata. Infectious disease team was consulted and patient started on micafungin IV. Her RUE swelling increased and a repeat u/s done showing RUE DVT. Her PICC line was removed on the right and a new PICC line placed on her left, with plans for her to receive micafungin for 14 days after 2nd set of blood cultures is deemed negative, which will be May 02, 2017. She will have followup with the infectious disease clinic with Dr. Vega in approximately 1 week to assess her progress with it. A TTE and RAJI were done to look for source of infection and negative. During hospitalization, her AFib with rapid ventricular response persisted. After her cardioversion, she only stayed in sinus a short time, and amiodarone drip was started which was controlling her rate as she was initially going in and out of sinus, but then continued just in atrial fibrillation. Cardiology assisted with management and started her on Lopressor and titrated the dose up over her course to 100 twice a day. She is being discharged on 400 mg of amiodarone daily, and also she was started on digoxin 125, which she received in the hospital for 3 or 4 doses, and then being discharged on 62.5, with close monitoring and followup. Her heart rate persisted to run around 90-100, but she was feeling much better, energy returned, not short of breath, asymptomatic from this. She had mild diastolic CHF with increased edema from the tachyarrhythmia and the fluid resuscitation. She was treated with Lasix and 1 dose of metolazone. She responded well to the diuretics. Historically, she has not needed diuresis, but this new tachyarrhythmia is helping to contribute with increased work on her heart in addition to IVF's she rec'd and her cardioversion. She will be discharged on 20 mg of Lasix daily and will follow up in a few days in clinic to make sure this is controlling her volume status and not being too much work on her kidneys. We will also reassess potassium, sodium status. She may need to increase to 40 but concerned w/ hyponatremia, Cr elev from this. Follow up: She will follow up with her PCP, myself, Agustina Ralph, in 2-3 to recheck her labs, her INR, BMP and volume status, assess her blood pressure and heart rate. Her blood pressure is somewhat difficult to assess currently given history of a clot in her right upper extremity and a PICC line in her left upper extremity, making blood pressures only possible in her leg and these are inconsistent. (One leg in a brace s/p polio as well.) Once she has her PICC line removed from her left upper extremity, we will be able to use this for better blood pressure monitoring. She will also have followup with infectious disease, Dr. Vega, to assess her progress with micafungin home infusion IV daily and micafungin has been arranged. Ongoing atrial fibrillation with RVR, difficult to control with beta esteban, amiodarone and digoxin. We will follow up with this as well as cardiology. She has an appointment with Dr. Jose in 2-3 days. She will then have a followup with Dr. June in 2-3 weeks, as well as myself, with close monitoring and assessment. Dr June is considering cardioversion again. History of hypothyroidism. She is on Synthroid. Concern with her new medication amiodarone. We will be watching this closely and recheck TSH level in the outpatient setting. DISCHARGE MEDICATIONS: Include vitamin D, PreserVision AREDS soft gels, atorvastatin 40 q.h.s., Systane eyedrops, polymyxin B trimethoprim ophthalmic drops, MiraLAX daily, Synthroid 75 mcg daily, Colace 100 mg daily, Prolia q.6 months, oxycodone IR 5 mg q.6 hours p.r.n., oxycodone CR 10 mg p.o. b.i.d., Detrol LA q.h.s. 4 mg, salsalate 750 p.o. t.i.d., Coumadin 2.5 mg daily at 4 p.m. with plan to hold this today as her INR was a little bit supratherapeutic. We will recheck that with home nurse is in 2-3 days, discussed with her daughter. Protonix 40 mg or Prilosec or Prevacid, whichever PPI over the counter she chooses daily, micafungin 100 mg IV q.24 hours; has 9 more doses, and per possible changes per infectious disease team, Lopressor 100 mg p.o. b.i.d., Lasix. 20 mg p.o. daily, digoxin 62.5 mcg daily, amiodarone 200 mg x2 tabs p.o. daily. /[id number]/MODL MTDD
== END 2017-04-23 17:29 | disposition home health service (06) | DRG 308 ==
LOC: F2N 15:59 → F2W 04-12 13:41
PROVIDERS: ADMIT Internal Medicine; ATTEND Internal Medicine
PROC: 5A2204Z Restoration of Cardiac Rhythm, Single (ICD-10-PCS; principal; 2017-04-11)
PROC: 02HV33Z Insertion of Infusion Device into Superior Vena Cava, Percutaneous Approach (ICD-10-PCS; 2017-04-11)
PROC: 30233N1 Transfusion of Nonautologous Red Blood Cells into Peripheral Vein, Percutaneous Approach (ICD-10-PCS; 2017-04-11)
PROC: 02HV33Z Insertion of Infusion Device into Superior Vena Cava, Percutaneous Approach (ICD-10-PCS; 2017-04-19)
PROC: B241ZZ4 Ultrasonography of Multiple Coronary Arteries, Transesophageal (ICD-10-PCS; 2017-04-19)
DX: I48.0 Paroxysmal atrial fibrillation (principal); J18.9 Pneumonia, unspecified organism; I50.21 Acute systolic (congestive) heart failure; K56.609 Unspecified intestinal obstruction, unspecified as to partial versus complete obstruction; B37.7 Candidal sepsis; I82.621 Acute embolism and thrombosis of deep veins of right upper extremity; E87.1 Hypo-osmolality and hyponatremia; E87.6 Hypokalemia; K59.00 Constipation, unspecified; K44.9 Diaphragmatic hernia without obstruction or gangrene; K21.9 Gastro-esophageal reflux disease without esophagitis; I10 Essential (primary) hypertension; D64.9 Anemia, unspecified; E03.9 Hypothyroidism, unspecified; E78.5 Hyperlipidemia, unspecified; Z99.3 Dependence on wheelchair; Z79.01 Long term (current) use of anticoagulants; Z86.718 Personal history of other venous thrombosis and embolism; Z86.711 Personal history of pulmonary embolism
CPT/HCPCS: 82947-QW; 87186-90; 96365; 97110-GP; 97161-GP; 97166-GO; 97530-GO; 97530-GP; 97535-GO; C1751; G8978-GP-CL; G8979-GP-CJ; G8979-GP-CK; G8987-GO-CK; G8987-GO-CL; G8988-GO-CJ; G8989-GO-CJ; J0282; J0295; J0692; J1650; J1940; J2248; J2405; J2704; J2997; J3430; P9016; Q9967

== ENCOUNTER → 2017-09-20 | Outpatient (CLI) | payer OTHER | LOC: FIMAGING 15:08 → EDSTATUS 15:11 | PROVIDERS: ATTEND Internal Medicine | DX: M85.862 Other specified disorders of bone density and structure, left lower leg (principal); M61.462 Other calcification of muscle, left lower leg; G14 Postpolio syndrome ==

== ENCOUNTER → 2018-01-21 | Outpatient (CLI) | payer OTHER | LOC: BHFA 13:30 | PROVIDERS: ATTEND Internal Medicine Cardiovascular Disease | DX: Z13.83 Encounter for screening for respiratory disorder NEC (principal) ==

== ENCOUNTER → 2018-05-12 | Outpatient (CLI) | payer OTHER | LOC: FIMAGING 16:04 | PROVIDERS: ATTEND Internal Medicine Interventional Cardiology | DX: I51.7 Cardiomegaly (principal); J90 Pleural effusion, not elsewhere classified ==

== ENCOUNTER → 2018-06-28 | Outpatient (CLI) | payer OTHER ==
[~2018-06-28] MED LIST: ACETAMINOPHEN 325 MG TAB PO ONE
== END ==
LOC: FOBOP 14:03
PROVIDERS: ATTEND Physician Assistant
PROC: 30233N1 Transfusion of Nonautologous Red Blood Cells into Peripheral Vein, Percutaneous Approach (ICD-10-PCS; principal; 2018-06-28)
DX: D64.9 Anemia, unspecified (principal)

== ENCOUNTER 2018-07-02 17:56 | Inpatient (IN) | payer OTHER ==
--- NOTE | 2018-07-02 17:59 | EDPHY ---
H & P Time Seen by Provider: 07/02/18 17:58 HPI/ROS: Chief complaint: Weakness History of present illness: This is an 87-year-old female who presents to the emergency department for weakness. She is accompanied by her daughter. Patient has multiple medical problems. She is acutely had multiple issues. She is currently being treated with urinary tract infection with Bactrim. She has atrial fibrillation is on Coumadin, her INR was recently elevated and her Coumadin regimen has been changed. She has had anemia thought to be from a GI bleed. This felt that colonoscopy and endoscopy are not in the patient's best interest and her PPI medication has been increased an H2 esteban has been added. She is also having a worsening tremor. She is unable to perform activities of daily living. She does live independently with her daughter. Her daughter feels she can no longer care for her mother at this time given the amount of weakness. Review of systems: A 10 point review of systems was obtained and other than described above was negative. - Personal History Tetanus Vaccine Date: 2008 - Medical/Surgical History Hx Asthma: No Hx Chronic Respiratory Disease: No Hx Diabetes: No Hx Cardiac Disease: Yes Hx Renal Disease: No Hx Cirrhosis: No Hx Alcoholism: No Hx HIV/AIDS: No Hx Splenectomy or Spleen Trauma: No Other PMH: Atrial fibrillation, HTN, hypothyroidism, dyslipidemia, polio, fractured L4 with kyphoplasty, osteoporosis, PNA - Social History Smoking Status: Never smoked - Physical Exam Exam: General Appearance: Alert, chronically unwell appearing. Eyes: Pupils equal and round no pallor or injection. ENT, Mouth: Mucous membranes moist. Respiratory: There are no retractions, lungs are clear to auscultation. Cardiovascular: Regular rate and rhythm. Gastrointestinal: Abdomen is soft and non tender, no masses, bowel sounds normal. Neurological: Alert. No focal neurologic deficits. Skin: Warm and dry, no rashes. Musculoskeletal: Neck is supple non tender. Diffuse tenderness to the back. No point tenderness over the spine. Extremities are symmetrical, full range of motion. Psychiatric: Patient is pleasant and interactive. Constitutional: Initial Vital Signs O2 Sat (%) 94 07/02/18 17:58 O2 Delivery Mode Nasal Cannula O2 (L/minute) 2 Allergies/Adverse Reactions: CURARE Allergy (Uncoded 04/11/17 13:17) PINEAPPLE Allergy (Uncoded 04/11/17 13:17) Home Medications: Medication Instructions Recorded Levothyroxine [Synthroid 75 mcg 37.5 mcg PO DAILY06 04/04/12 (*)] Polymyxin B Sulfate/Tmp [Polytrim 1 drops EACHEYE DAILY 04/04/12 Opht Drops (*)] Salsalate 750 mg PO BID 04/04/12 oxyCODONE CR [Oxycontin] 10 mg PO BID 04/04/12 Atorvastatin Calcium [Lipitor 40 40 mg PO HS 04/04/17 mg (*)] Denosumab [Prolia] 60 mg SQ [id number] 04/04/17 Docusate Sodium [Colace 100 MG (*)] 100 mg PO DAILY 04/04/17 Ergocalciferol [Vitamin D2 (*)] 50,000 unit PO Q14D 04/04/17 Herbals/Supplements -Info Only 1 each PO DAILY 04/04/17 Polyethylene Glycol 3350 [Miralax 17 gm PO Q2D 04/04/17 17 gm (*)] Propylene Glycol/Peg 400 [SYSTANE 1 drop OP PRN PRN 04/04/17 0.3-0.4% EYE DROPS] oxyCODONE IR [Oxycodone Ir (*)] 5 mg PO BID PRN 04/04/17 Amiodarone HCl [Pacerone (*)] 100 mg PO DAILY 06/28/18 Digoxin [Lanoxin 125 mcg (RX)] 31.25 mcg PO DAILY AT 10AM 06/28/18 Nortriptyline HCl [Pamelor 25 mg 25 mg PO HS 06/28/18 (*)] Warfarin Sodium [Coumadin 1MG (*)] 0.5 mg PO Q2D 06/28/18 Ascorbic Acid [Vitamin C 500 mg 500 mg PO BID 07/02/18 (*)] Furosemide [Lasix 40 MG (*)] 20 mg PO MWF 07/02/18 Metoprolol Tartrate [Lopressor 50 50 mg PO BID 07/02/18 mg (*)] OLANZapine [Olanzapine] 1.25 mg PO HS 07/02/18 Pantoprazole Sodium [Protonix 40mg 40 mg PO BID 07/02/18 (*)] Ranitidine HCl [Zantac] 300 mg PO HS 07/02/18 Sulfamethox/Tmp 800/160 mg 0.5 tab PO BID 07/02/18 [Bactrim Ds] Vitamin B Complex [Vitamin B 1 each PO DAILY 07/02/18 Complex (OTC)] Medical Decision Making - Diagnostics Imaging: I viewed and interpreted images myself ED Course/Re-evaluation: Patient is discussed with my secondary supervising physician Dr. Jonathan Desir. Patient presents to the emergency department with progressing weakness. She has multiple acute on chronic medical issues at this time. It does not appear she is able to perform activities of daily living. I have consulted with her primary care doctor group, Dr. Jaelyn Shahid. She will admit this patient for further evaluation and care. The plan has been discussed with the patient and her daughter who voiced understanding and agreement with it. Differential Diagnosis: Included but not limited to infections of multiple etiologies including urinary track and pneumonia, anemia, electrolyte disturbances, cardiac disturbances - Data Points Laboratory Results: Laboratory Results 07/02/18 18:00 07/02/18 18:00 Microbiology Results: MICROBIOLOGY 07/02/18 18:31 Unspecified Urine Culture - Preliminary Enterococcus Faecalis Gram Neg Abner [employer] [place] Types Medications Given: Ascorbic Acid (Vitamin C) 500 mg PO BID CEZAR Stop: 12/29/18 22:29 Last Admin: 07/03/18 21:01 Dose: 500 mg Atorvastatin Calcium (Lipitor) 40 mg PO HS CEZAR Stop: 12/30/18 20:59 Last Admin: 07/03/18 21:01 Dose: 40 mg Digoxin (Lanoxin) 31.25 mcg PO DAILY AT 10AM CEZAR Stop: 12/30/18 09:59 Last Admin: 07/03/18 09:06 Dose: 31.25 mcg Docusate Sodium (Colace) 100 mg PO DAILY CEZAR Stop: 12/30/18 08:59 Last Admin: 07/03/18 09:07 Dose: 100 mg Famotidine (Pepcid) 20 mg PO HS CEZAR Stop: 12/29/18 22:29 Last Admin: 07/03/18 21:02 Dose: 20 mg Sodium Chloride (Ns) 1,000 mls @ 125 mls/hr IV CONT CEZAR Stop: 12/29/18 22:14 Last Admin: 07/02/18 23:00 Dose: 1,000 mls Levothyroxine Sodium (Synthroid) 37.5 mcg PO DAILY06 CEZAR Stop: 12/30/18 05:59 Last Admin: 07/03/18 04:24 Dose: 37.5 mcg Metoprolol Tartrate (Lopressor) 50 mg PO BID CEZAR Stop: 12/29/18 22:14 Last Admin: 07/03/18 21:03 Dose: 50 mg Nitrofurantoin Macrocrystals (Macrobid) 100 mg PO BID CEZAR PRN Reason: Protocol Stop: 08/02/18 20:59 Last Admin: 07/03/18 21:03 Dose: 100 mg Nortriptyline HCl (Pamelor) 25 mg PO HS CEZAR Stop: 12/29/18 20:59 Last Admin: 07/03/18 21:03 Dose: 25 mg Olanzapine (Zyprexa) 1.25 mg PO HS CEZAR Stop: 12/29/18 22:29 Last Admin: 07/03/18 21:02 Dose: 1.25 mg Oxycodone HCl (Oxycontin) 10 mg PO BID CEZAR Stop: 07/12/18 22:11 Last Admin: 07/03/18 21:02 Dose: 10 mg Oxycodone HCl (Oxycodone Ir) 5 mg PO BID PRN PRN Reason: Pain, Breakthrough Stop: 07/12/18 22:07 Last Admin: 07/03/18 04:24 Dose: 5 mg Pantoprazole Sodium (Protonix) 40 mg PO BID CEZAR Stop: 12/29/18 22:14 Last Admin: 07/03/18 21:02 Dose: 40 mg Polyethylene Glycol (Miralax) 17 gm PO Q2D CEZAR Stop: 12/30/18 08:59 Last Admin: 07/03/18 09:05 Dose: 17 gm Polymyxin/Trimethoprim Sulfate (Polytrim Opht Drops) 1 drops EACHEYE DAILY CEZAR Stop: 08/02/18 08:59 Last Admin: 07/03/18 09:16 Dose: 1 drop Salsalate (Disalcid) 750 mg PO BID CEZAR Stop: 12/29/18 22:29 Last Admin: 07/03/18 21:01 Dose: 750 mg Vitamin B Complex (Vitamin B Complex) 1 ea PO DAILY CEZAR Stop: 12/30/18 08:59 Last Admin: 07/03/18 09:06 Dose: 1 ea Discontinued Medications Amiodarone HCl (Amiodarone Hcl) 100 mg PO DAILY CEZAR Stop: 12/30/18 08:59 Last Admin: 07/03/18 09:06 Dose: 100 mg Furosemide (Lasix) 20 mg PO ONCE ONE Stop: 07/03/18 17:49 Last Admin: 07/03/18 18:35 Dose: 20 mg Departure - Departure Disposition: [facility] Inpatient Acute Clinical Impression: Weakness Condition: Fair
[2018-07-02 18:35] LABS: PLATELET COUNT 273 10^3/uL (150-400)
[2018-07-02 18:51] LABS: INR 3.07 (0.83-1.16); PROTIME(PATIENT) 30.1 SEC (12.0-15.0)
--- NOTE | 2018-07-02 19:42 | CPEKG ---
Test Reason : OPEN Blood Pressure : / mmHG Vent. Rate : 085 BPM Atrial Rate : 085 BPM P-R Int : 364 ms QRS Dur : 092 ms QT Int : 377 ms P-R-T Axes : 260 111 026 degrees QTc Int : 449 ms Sinus or ectopic atrial rhythm Prolonged NV interval Low voltage, precordial leads Probable right ventricular hypertrophy Confirmed by Jonathan Desir [id number]) on 07/02/2018 7:42:35 PM Referred By: Jonathan Desir Confirmed By:Jonathan Desir
--- NOTE | 2018-07-02 21:30 | SOAPPROG ---
SOAP Progress Note Assessment/Plan: Assessment: Plan: 07/02/18 21:50 Change is status: increased tremulousness, sleeping more, hallucinations per daughter, nodding off easily when not being addressed. Unclear how much of a change these symptoms represent, but wonder about possible drug reaction. Her symptoms started prior to initiating Bactrim but wonder if this is a contributor. She has also had a recent GI bleed, and wonder how much that may be contributing. H/H stable since 06/30/18. Given that her UA tonight looks only mildly abnormal, will hold Bactrim. Anemia: presumably due to GI bleeding, though no hx melena, hematemesis. Will continue pantoprazole 40mg bid, ranitidine 300mg at HS. Stable H/H. Atrial fibrillation: regular rhythm currently. On metoprolol, amiodarone, digoxin, coumadin. INR still mildly elevated so will continue to hold coumadin. Recent UTI: cx with Klebsiella. Has been taking Bactrim DS 1/2 tab bid. Will hold and await current cx. Hypothyroid: Recent TSH suppressed so is currently on 75mcg, 1/2 tab daily Chronic pain: on oxycontin, prn oxycodone, salsalate. Per daughter, salsalate not stopped by GI. Hallucinations: on low dose olanzapine. Post-polio: WC bound, having difficulty with transfers, weak. Will get PT, OT evaluation. End of life: pt requesting to speak with clergy during visit, which is new for her to be considering this. DVT prophylaxis: on coumadin Dispo: Admit to observation. 07/02/18 22:30 Subjective: 87 yo woman with multiple medical problems including post polio syndrome, chronic atrial fibrillation on coumadin, pulmonary fibrosis, CAD, recent diagnosis of anemia presumed secondary to GI bleed woke up from a nap this afternoon and was very weak, incoherent. Her called their daughter who came over. She called the office to report what was going on and was advised to come to the ED. Pt hasn't been feeling all that well for a couple of weeks. She was seen in the office on 06/12/18 with c/o of worsening tremor that is intermittent but can interfere with eating. Her daughter also reported that she has been hallucinating at times, and sleeping more. Was started on olanzapine 1.25mg at bedtime. She was c/o mild dysuria but not able to give urine sample. She did bring in a urine sample 06/20/18 which grew Klebsiella. She was started on Bactrim DS bid on 06/24/18. She was seen again on 06/27/18 with c/o of increased shakiness. Her INR was 3.4 and her hgb was 7.4. Digoxin level was subtherapeutic. Coumadin dose was decreased. She was transfused 1 unit PRBCs the following day. F/u hgb on 06/30/18 was 9.3, INR 3.9. Advised to hold coumadin for yesterday and today, then resume 0.5mg tomorrow. She saw Dr. Ureña yesterday for presumed GI bleed. He was reluctant to scope her due to her frailty, so increased her PPI to BID and added ranitidine 300mg at HS. She has a significant hiatal hernia, so he assumes that her bleeding is related to erosions secondary to the hernia. In the ER tonight, she is not feeling well in general. The tremulousness has continued, as have the hallucinations, per her daughter. They don't feel the olanzapine has helped yet. Her labs show hgb of 9.4. BUN is mildly elevated at 30, creatinine normal. WBC normal. EKG shows a regular rhythm, possibly sinus with a long SC interval. CXR shows opacification of the LLL and a pleural effusion, not new findings. Pt's daughter is caring for both parents as well as her housemate who just recently had surgery and doesn't feel able to care for patient right now given these changes. She is being admitted for further evaluation. Pt is also wondering about what she's doing, and if it's time for her to go, she is ready. Would like to speak with someone about this while she's here. Objective: Vital Signs Temp Pulse Resp BP Pulse Ox 36.6 C 84 18 118/77 95 07/02/18 20:00 07/02/18 20:28 07/02/18 20:28 07/02/18 20:28 07/02/18 20:28 PT 30.1 SEC (12.0-15.0) H 07/02/18 18:00 INR 3.07 (0.83-1.16) H 07/02/18 18:00 General: Awake but tends to nod off when not being addressed. Arouses easily, NAD, pleasant, appropriate HEENT: PERRL, EOMI. O/P moist, dentition poor Neck: mild swelling on R side, no carotid bruits Lungs: clear in upper hernandez, diminished in bases especially on L Cardiovascular: RRR, no murmur Abdomen: +bowel sounds, soft, NT, no hepatosplenomegaly, masses Extremities: 1+ edema RLE, minimal edema LLE. LLE is brace from foot to thigh due to polio Neurologic: arousable, answers questions appropriately, no confusion, Jania Psychiatric: no agitation ICD10 Worksheet Patient Problems: Problems Problem Status Onset Pneumonia Active Dehydration Acute Hypotension Acute Tachycardia Acute Vomiting Acute chronic disease mgmt/transitional care Acute
[2018-07-02] MEDS ORDERED: ACETAMINOPHEN 325 MG TAB PO PRN (22:03)
[2018-07-02] MEDS ORDERED: ONDANSETRON DISINTEGRATING 4 MG TAB PO PRN (22:03)
[2018-07-02] MEDS ORDERED: ONDANSETRON 4 MG/2 ML VIAL IVP PRN (22:03)
[2018-07-02] MEDS ORDERED: Propylene Glycol/Peg 400 [Systane 0.3-0.4% Eye Drops] OP PRN (22:08)
[2018-07-02] MEDS ORDERED: NS 1,000 ML IV SCH (22:15)
[2018-07-02] MEDS: NORTRIPTYLINE HCL 25 MG CAP PO SCH (22:57)
[2018-07-02] MEDS: PANTOPRAZOLE SODIUM 40 MG TAB PO SCH (22:57)
[2018-07-02] MEDS: FAMOTIDINE 20 MG TAB PO SCH (22:57)
[2018-07-02] MEDS: METOPROLOL TARTRATE 50 MG TAB PO SCH (22:57)
[2018-07-02] MEDS: OLANZapine 2.5 MG TAB PO SCH (22:57)
--- NOTE | 2018-07-02 23:24 | GHP ---
[f rep st] HISTORY AND PHYSICAL DATE OF ADMISSION: 07/02/2018 HISTORY OF PRESENT ILLNESS: The patient is a very pleasant 87-year-old woman with multiple medical problems including post-polio syndrome, chronic atrial fibrillation on Coumadin, pulmonary fibrosis, coronary artery disease, and a recent diagnosis of anemia presumed secondary to GI bleeding, who woke up from a nap this afternoon and was very weak and incoherent. Her called her daughter who came over. She then called the office to report what was going on and was advised to come to the emergency department. The patient has not been feeling all that well for the last couple of weeks at least. She was seen in the office on 06/12/2018 with complaints of worsening tremor that is intermittent, but can interfere with eating. Her daughter also reported that she had been hallucinating at times and sleeping more. She was started on olanzapine 1.25 mg at bedtime. She was also complaining of mild dysuria, but not able to give a urine sample at that time. She did bring in a urine sample on 06/20/2018, and that subsequently grew Klebsiella. She was started on Bactrim DS b.i.d. on 06/24/2018. She was seen again in the office on 2018 with complaints of increased shakiness. Her INR was 3.4, and her hemoglobin had dropped to 7.4, digoxin level was subtherapeutic. Her Coumadin dose was decreased. She was transfused 1 unit of packed red blood cells the following day. She was seen in the office 06/30/2018 and at that time, her hemoglobin had increased to 9.3, but INR was more elevated at 3.9. She was advised to hold her Coumadin for yesterday and today and then to resume at 0.5 mg tomorrow. She saw Dr. Ureña yesterday for presumed GI bleeding. However, he was reluctant to scope her due to her frailty, so increased her PPI to b.i.d. and added ranitidine 300 mg at h.s. She has a significant hiatal hernia , so he assumes that her bleeding is related to erosion secondary to the hernia. In the ER tonight, she is not feeling well in general. The tremulousness has continued as have the hallucinations per her daughter. They do not feel the olanzapine has helped yet. LABS: Hemoglobin of 9.4, BUN is mildly elevated at 30, creatinine is normal. White blood cell count is normal. EKG shows a regular rhythm, possibly sinus with a long MT interval. Chest x-ray shows opacification of the left lower lobe and a pleural effusion, which are not new findings. The patient's daughter is caring for both of her ill parents as well as her housemate, who just recently had surgery, and does not feel she is able to care for her mother right now, given all of her recent changes. She is being admitted for further evaluation. The patient is also wondering about what she is doing and if it is time for her to go. She is ready. She would like to speak to someone about this while she is here. PAST MEDICAL HISTORY: Post-polio syndrome, currently wheelchair bound, DVT x2, hypothyroidism, chronic pain, bibasilar pulmonary fibrosis, urinary incontinence , colitis, hiatal hernia, osteoporosis, coronary artery disease, depression, hypertension, vertebral compression fracture, recurrent UTI. Kyphoplasty 2012. MEDICATIONS: Krill oil 350 mg daily. Docusate sodium 100 mg daily. Biotin 1000 mcg daily. Vitamin C 500 mg b.i.d. Super B complex 1 daily. Systane eyedrops p.r.n. both eyes. Autologous serum 50% one drop each eye q.i.d. Amiodarone 200 mg 1/2 tablet daily, atorvastatin 50 mg daily, Bactrim DS 1/2 tab b.i.d. Digoxin 0.125 mg 1/4 tab daily. Furosemide 10 mg Saturday, Saturday , Saturday. Levothyroxine 75 mcg 1/2 tab daily. Metoprolol 100 mg 1/2 tab b.i.d. Nortriptyline 25 mg at h.s. Olanzapine 2.5 mg 1/2 tablet at h.s. OxyContin 10 mg b.i.d. Oxycodone 5 mg b.i.d. as needed. Ranitidine 300 mg at h.s. Pantoprazole 40 mg b.i.d.. Salsalate 750 mg b.i.d. to t.i.d. Vitamin D 50 ,000 International Units every 2 weeks. Warfarin 0.5 mg every other day. Polymyxin B sulfate and trimethoprim ophthalmic 1 drop each eye daily. ALLERGIES: Tetanus vaccine, cephalosporins, penicillin, curare, and pineapple. PAST SURGICAL HISTORY: Ankle fusion 1956, D and C. FAMILY HISTORY: Noncontributory. SOCIAL HISTORY: The patient is and lives with her who is also chronically ill. She has 1 daughter. REVIEW OF SYSTEMS: GENERAL: No fever or chills, though has felt somewhat clammy. Appetite is off, though she is eating some. HEENT: Chronic runny nose , decreased hearing. No sinus pain or pressure. RESPIRATORY: Chronic hypoxia , now on continuous O2. No cough. Occasional shortness of breath at night. CARDIOVASCULAR: Occasional chest pain. No irregular heart rhythms that she is aware of. ABDOMEN: No nausea and vomiting. No abdominal pain. Mild diarrhea with antibiotic but generally is constipated. MUSCULOSKELETAL: Weak. She is having difficulty transferring chronic ankle pain and back pain. GENITOURINARY : Frequent urination, urinary incontinence. NEUROLOGIC: Gradual increasing weakness, hallucinations per HPI. Confusion earlier today. PSYCH: Wondering what is going to happen to her. PHYSICAL EXAMINATION: VITAL SIGNS: Temperature 36.6, pulse 84, respirations 18 , blood pressure 118/77, oxygen 95% on room air. GENERAL: She is awake, but tends to nod off when not being addressed. Arouses easily. No acute distress. Pleasant, appropriate. HEENT: Pupils equal, round, reactive to light. Extraocular movements intact. Oropharynx is moist. Dentition poor. NECK: Mild swelling on right side. No carotid bruits. LUNGS: Clear in the upper hernandez. Diminished in bases, especially on the left. CARDIOVASCULAR: Regular rate and rhythm. No murmur. ABDOMEN: Normal bowel sounds. Soft, nontender. No hepatosplenomegaly or masses. EXTREMITIES: 1+ right lower extremity edema. Minimal edema left lower extremity. Left lower extremity is in brace from the foot to the thigh due to polio. NEUROLOGIC: Arousable, answers questions appropriately. No confusion. Moving all extremities. PSYCHIATRIC: No agitation. ASSESSMENT AND PLAN: 1. Change in status. Increased tremulousness, sleeping more, hallucinations per daughter, nodding off easily when not being addressed. Unclear how much of a change these symptoms represent but wonder about possible drug reaction. Her symptoms started prior to initiation of Bactrim, but wonder if this is a contributor. She has also had a recent GI bleed and wondered how much this may be contributing. H and H are stable since June 30, 2018. Given that her UA tonight looks only mildly abnormal, we will hold Bactrim. 2. Anemia, presumably due to gastrointestinal bleeding, though no history of melena or hematemesis. Will continue pantoprazole 40 mg b.i.d., ranitidine 300 mg at h.s. Currently H and H are stable, so we will follow. 3. Atrial fibrillation, currently in a regular rhythm on metoprolol, amiodarone , digoxin and Coumadin. INR still mildly evaluated, so we will continue to hold Coumadin. 4. Recent urinary tract infection. Culture showed Klebsiella. She has been taking Bactrim DS 1/2 tab b.i.d., but will hold and await culture. 5. Hypothyroid. Recent TSH was suppressed, so she is currently now on 75 mcg of levothyroxine 1/2 tab daily. 6. Chronic pain on OxyContin, p.r.n. oxycodone, Per daughter, salsalate was not stopped by Gastroenterology. 7. Hallucinations on low-dose olanzapine. 8. Post-polio wheelchair-bound, having difficulty with transfers, weak. Will ask PT, OT to assess. 9. End of life. Patient requesting to speak with clergy during visit, which is new for her to be considering this. 10. Deep venous thrombosis prophylaxis on Coumadin. DISPOSITION: Will admit to observation. /[id number]/MODL MTDD
[2018-07-03] MEDS: SALSALATE 500 MG PO SCH ×3 (00:28→21:01)
[2018-07-03] MEDS: ASCORBIC ACID 500 MG TAB PO SCH ×3 (00:28→21:01)
[2018-07-03] MEDS: LEVOTHYROXINE 75 MCG TAB PO SCH (04:24)
[2018-07-03] MEDS: oxyCODONE IR 5 MG TAB PO PRN (04:24)
[2018-07-03 05:27] LABS: PLATELET COUNT 264 10^3/uL (150-400)
[2018-07-03 05:38] LABS: INR 2.89 (0.83-1.16); PROTIME(PATIENT) 28.8 SEC (12.0-15.0)
[2018-07-03] MEDS ORDERED: AMIODARONE HCL 200 MG TAB PO SCH (09:00)
[2018-07-03] MEDS: POLYETHYLENE GLYCOL 3350 17 GM PKT PO SCH (09:05)
[2018-07-03] MEDS: DIGOXIN 125 MCG TAB PO SCH (09:06)
[2018-07-03] MEDS: PANTOPRAZOLE SODIUM 40 MG TAB PO SCH ×2 (09:06→21:02)
[2018-07-03] MEDS: METOPROLOL TARTRATE 50 MG TAB PO SCH ×2 (09:06→21:03)
[2018-07-03] MEDS: VITAMIN B COMPLEX 1 EA CAP/TAB PO SCH (09:06)
[2018-07-03] MEDS: DOCUSATE SODIUM 100 MG CAP PO SCH (09:07)
[2018-07-03] MEDS: POLYMYXIN B SULFATE/TMP 10 ML OPHT.BTL EACHEYE SCH (09:16)
--- NOTE | 2018-07-03 09:58 | SOAPPROG ---
SOAP Progress Note Assessment/Plan: Assessment: 87 yo female admitted w/ increased fatigue, somnolence, recent GIB, increased challenge of care at home, recent uti on bactrim, h/o bacteremia and a fib, dvt and bilat pe's on chronic anticoag -fatigue/somnolence/decreased mentation from usual - ? etiology - was presumed from uti and has been on bactrim for this but ? if now w/ medication side effect and bactrim contributing to AMS. Bactrim held last night, repeat ucx is pending, she should be done w/ treatment for the uti at this point. Will check esr/crp, bcx as well, concern for possible bacteremia again (? source in past thought perhaps poor dentition). -enlarging pleural effusion, coarse bs on exam, will at this point check chest ct to better identify what is going on, did receive gentle fluids last night. -a fib/h/o pe/dvt - holding coumadin right now w/ recent gib and INR 2.8. Will recheck INR in am. -GIB - saw Dr Ureña 2 days ago - felt source from large HH and likely ulceration - is now on bid PPI and h2 esteban. Cont w/ this, rec'd 1 u prbc last weekend, will watch h/h to make sure stable, not felt a good candidate for more aggressive scoping unless h/h decrease. -s/p recent all - no head trauma, took fall mostly with abdomen, not tender on exam, but concern w/ increasing fatigue and decreasing abilities at home, PT / OT working w/ pt, changed obs to inpt w/ concerns of all the above. -dispo - may need SNF vs return to home w/ hh - need to further assess and w/u current situation. -dvt proph - INR 2.8 w/ coumadin. Plan: 07/03/18 09:49 Subjective: Still feeling tired and not herself, had a difficult night w/ some pain, took a while to get pain medication, is feeling overall just worn out. Objective: Vital Signs Temp Pulse Resp BP Pulse Ox 36.8 C 86 12 118/58 L 98 07/03/18 08:00 07/03/18 08:00 07/03/18 08:00 07/03/18 08:00 07/03/18 08:00 Laboratory Results 07/03/18 04:46 07/03/18 04:46 PT 28.8 SEC (12.0-15.0) H 07/03/18 04:46 INR 2.89 (0.83-1.16) H 07/03/18 04:46 GEn: pleasant, appropriate, nods off easily but then answers questions as usual w/ awakening Heent: wearing oxygen w/ nc, eomi NEcK: soft/supple CHEST: coarse bs throughout CV: rrr ABD: soft nt nd Ext: trace edema L >R (not new), typically wears brace 2/2 polio - Pending Discharge Pending Discharge Within 24 Hours: No ICD10 Worksheet Patient Problems: Problems Problem Status Onset Hypotension Acute Tachycardia Acute Vomiting Acute Dehydration Acute chronic disease mgmt/transitional care Acute Pneumonia Active
--- NOTE | 2018-07-03 11:02 | ASMTCMCOM ---
CM Note CM Note Notes: Pt is a 87 y/o female admitted for weakness. Therapies have been ordered and awaiting recommendations. Needs are TBD at this time. CM to follow. Plan: TBD Date Signed: 07/03/2018 11:01 AM Electronically Signed By:QASIM Sanabria
--- NOTE | 2018-07-03 11:22 | PDMN ---
Medical Necessity Medical necessity: MCG MGSIC Systemic or Infectious Condition: 87 yo w/ general change in status including tremulousness, sleeping more, and hallucinations. Recent tx for UTI on Bactrim w/ no improvement. Initially OBS for workup but change to IP status 07/03/18@0943 per [employer] as pt not returning to baseline w/ sig fatigue, still unknown etiology - meds vs. infection, UTI/bactermia. Urine and bld cx pending. Imaging shows enlarging pleural effusion. Pt remains on IVF, PT /OT ordered, CT chest ordered for further eval effusion, PICC placement ordered. Pt will require>2MN for ongoing workup and tx of the above, possibly d /c to SNF vs. home hospice. Hx mulit medical probs: post polio syndrome-w/c bound, afib on Coumadin, pulm fibrosis, CAD, anemia, DVTx2, HTN, recurrent UTIs , hypothyroic, chronic pain, urinary incontinence, colitis, osteoporosis, depression, vertebral compression fx, GIB, bacteremia.
[2018-07-03] MEDS ORDERED: LIDOCAINE 1% 300 MG/30 ML SDV ONE (14:26)
--- NOTE | 2018-07-03 16:48 | ASMTCMCOM ---
CM Note CM Note Notes: CM met w/ pts daughter Geovanna Blake for dispo planning. Therapies are both recommending SNF. Geovanna Blake reports that she would like pt to go to [facility] if she needed to go to SNF. Referral sent to SNF and asked [facility] to start getting auth. CM to follow. Date Signed: 07/03/2018 04:47 PM Electronically Signed By:QASIM Sanabria
[2018-07-03] MEDS ORDERED: FUROSEMIDE 20 MG TAB PO ONE (17:48)
[2018-07-03] MEDS: ATORVASTATIN CALCIUM 40 MG TAB PO SCH (21:01)
[2018-07-03] MEDS: OLANZapine 2.5 MG TAB PO SCH (21:02)
[2018-07-03] MEDS: FAMOTIDINE 20 MG TAB PO SCH (21:02)
[2018-07-03] MEDS: NITROFURANTOIN MACROBID 100 MG CAP PO SCH (21:03)
[2018-07-03] MEDS: NORTRIPTYLINE HCL 25 MG CAP PO SCH (21:03)
[2018-07-04 04:34] LABS: INR 2.11 (0.83-1.16); PROTIME(PATIENT) 22.6 SEC (12.0-15.0)
[2018-07-04] MEDS: LEVOTHYROXINE 75 MCG TAB PO SCH (05:48)
[2018-07-04] MEDS: AMPICILLIN SODIUM 1 GM in NS 50 ML IV SCH ×3 (06:22→18:24)
[2018-07-04] MEDS: SALSALATE 500 MG PO SCH ×2 (08:42→21:03)
[2018-07-04] MEDS: ASCORBIC ACID 500 MG TAB PO SCH ×2 (08:43→21:19)
[2018-07-04] MEDS: DOCUSATE SODIUM 100 MG CAP PO SCH (08:43)
[2018-07-04] MEDS: NITROFURANTOIN MACROBID 100 MG CAP PO SCH ×2 (08:43→21:04)
[2018-07-04] MEDS: METOPROLOL TARTRATE 50 MG TAB PO SCH ×2 (08:43→21:04)
[2018-07-04] MEDS: VITAMIN B COMPLEX 1 EA CAP/TAB PO SCH (08:44)
[2018-07-04] MEDS: PANTOPRAZOLE SODIUM 40 MG TAB PO SCH ×2 (08:44→21:04)
[2018-07-04] MEDS: FUROSEMIDE 20 MG TAB PO SCH (08:44)
[2018-07-04] MEDS: DIGOXIN 125 MCG TAB PO SCH (08:50)
--- NOTE | 2018-07-04 09:54 | SOAPPROG ---
SOAP Progress Note Assessment/Plan: Assessment: 87 yo female w/ multiple med problems admitted w/ somonolence fatigue recent uti - now w/ uculture + for enterococcus faecalis, and bcx also positive w/ sensitivities pending, was started on nitrofurantoin yesterday and ampicillin added overnight. -fatigue/somnolence - now w/ known source Ucx + and bacteremia - will follow sensitivities, will ask for echo r/o endocarditis - pt would like to look at big picture here on treatability of current situation as she is very tired and not wanting to fight much longer. Would like to continue abx and await further cx results and echo and meet w/ palliative care and make decisions and speak w/ spouse about current situation further. -enlarging pleural effusion, coarse bs on exam, will at this point check chest ct to better identify what is going on, did receive gentle fluids last night - spoke w/ Dr Felix yesterday - was going to tap but at that time w/o declared etiolgy of illness, now clear source of infection and pt wishes for no heroics and does not want thoracentesis at this time. Will d/c. Is possibly related to amiodarone as well as chf - mulitfactorial- holding amio currently. -a fib/h/o pe/dvt - holding coumadin right now w/ recent gib and INR now better , will restart coumadin in am tomorrow. -GIB - saw Dr Ureña this week- felt source from large HH and likely ulceration - is now on bid PPI and h2 esteban. Cont w/ this, rec'd 1 u prbc last weekend, will watch h/h to make sure stable, not felt a good candidate for more aggressive scoping unless h/h decrease. -s/p recent all - head ct neg yesterday. -dvt proph - INR ok, restarting coumadin -dispo - will consult palliative care, pt would like to discuss options, will await results of echo, culture sensitivities, and discuss updated information w / pt and spouse and dtr. Plan: 07/03/18 09:49 07/04/18 09:45 Subjective: Mentating much more clearly today, able to discuss concerns, fatigue, loss of will to fight Objective: Vital Signs Temp Pulse Resp BP Pulse Ox 36.8 C 87 16 113/58 L 92 07/04/18 04:00 07/04/18 08:50 07/04/18 08:40 07/04/18 08:43 07/04/18 08:40 Microbiology 07/03/18 11:56 Blood Panel (PCR) - Final Blood Enterococcus Species Laboratory Results 07/03/18 11:56 07/04/18 03:55 07/03/18 07/04/18 07/05/18 05:59 05:59 05:59 Intake Total 1250 Output Total 650 Balance 600 PT 22.6 SEC (12.0-15.0) H 07/04/18 03:55 INR 2.11 (0.83-1.16) H 07/04/18 03:55 Gen: pleasant, oriented Heent: eomi, nasal cannula in place Neck: soft/supple Chest: coarse bs throughout CV: rrr Abd: soft nt nd Ext: trace edema L>R chronic - Pending Discharge Pending Discharge Within 24 Hours: No ICD10 Worksheet Patient Problems: Problems Problem Status Onset Hypotension Acute Tachycardia Acute Vomiting Acute Dehydration Acute Weakness Acute chronic disease mgmt/transitional care Acute Pneumonia Active
--- NOTE | 2018-07-04 12:08 | ASMTCMCOM ---
CM Note CM Note Notes: CM spoke to Dang tan/ palliative. Pt will most likely won't d/c until Saturday. [facility] have accepted and started getting auth. It seems like Geovanna Blake is leaning more towards having pt going to [facility]. Palliative is involved and following this case. Geovanna Blake is not available from 12pm-5pm today because she will be at a . CM to follow. Plan: [facility] SNF Date Signed: 07/04/2018 12:07 PM Electronically Signed By:QASIM Sanabria
[2018-07-04] MEDS: POLYMYXIN B SULFATE/TMP 10 ML OPHT.BTL EACHEYE SCH (13:53)
--- NOTE | 2018-07-04 15:13 | ECHO ---
[email or web address] [address] [address] Main: [phone] Echocardiography Examination Transthoracic Name: DAWSON CREWS MR#: [id number] Study Date: 07/04/2018 Study Time: 10:14 AM Date of : 1930 Age: 87 year(s) Height: 167.6 cm (66 in.) Weight: 78.02 kg (172 lb.) BSA: 1.88 m2 Gender: Female Examination: Echo Contrast: Image Quality: Fair Rhythm: Normal sinus rhythm Heart Rate: 87 bpm BP: 113 mmHg/58 mmHg Indication: Bacteremia, Eval for evidence of endocarditis Procedure Staff Referring Physician: Assurance Sourcing Manager: Jose Vidales RDCS Reading Physician: Royal Aldana MD Requesting Provider: Indication: Bacteremia, Eval for evidence of endocarditis Measurements Chambers AV/MV Label Value Normal Value Label Value Normal Value LVOT Vmax 0.68 m/s (0.7m/s - 1.1m/s) AV PGmax 6 mmHg LVOTd 1.9 cm (1.8cm - 2cm) AV PGmean 3 mmHg LVOT PGmax 2 mmHg AV Vmax 1.22 m/s LVDd, 2D 3.8 cm (3.9cm - 5.3cm) LOURDES (Vmax) 1.6 cm2 LVDs, 2D 2.5 cm (2.1cm - 4cm) LOURDES (VTI) 1.7 cm2 IVSd, 2D 0.8 cm (0.6cm - 1.1cm) MV E Vmax 1.2 m/s LVPWd, 2D 0.9 cm MV A Vmax 0.44 m/s LVEF, 2D 63 % (54% - 74%) MV E/A 2.73 LVOT PGmean 1 mmHg MV E/E' lateral 12.7 LVOT Vmean 0.45 m/s MV E/E' septal 13.5 (0.45 - 1.25) RVDd, 2D 2.6 cm (1.9cm - 3.8cm) MV E' septal 0.09 m/s LA Volume, BP 78 ml (22ml - 52ml) MV VTI 26.4 cm LAESV index, BP 41.5 ml/m2 MVA D (continuity eq.) 1.4 cm2 Additional Vessels MV PGmax 7 mmHg Label Value Normal Value MV PGmean 3 mmHg AoRoot, MM 2.6 cm (2.2cm - 3.7cm) MV Lou 3.3 cm MR Reg. Volume 17 ml MR Reg. Fraction 8 % MR Vmax 5.11 m/s MR VTI 156 cm Patient: DAWSON CREWS Study Date: 07/04/2018 Page 1 of 3 10:14 AM MR (ERO) 0.11 cm2 MV E' lateral 0.09 m/s MR PISA Radius 0.5 cm MV E/E' mean 13.33 MR PISA Alias V. 36.4 cm/s MV E' mean 0.09 m/s TV/PV Label Value Normal Value RA Pressure 5 mmHg RVSP 50 mmHg TR Pmax 45 mmHg TR Vmax 3.35 m/s PV PGmax 3 mmHg PV Vmax, Caliper 0.87 m/s (0.6m/s - 0.9m/s) Conclusions (1) Normal LVEF at 60-65% - normal wall motion - no LVH - diastolic dysfunction was present (2) Normal RV size and function (3) Mild to mod LAE with normal RA dimensions (4) Mod MR (5) Trileaflet aortic valve without AI or (6) Mod TR - RVSP was estimated to be 50 mm Hg (7) Grossly normal pulmonic valve (8) Normal aorta dimensions (9) Normal pericardium, but large left pleural effusion Findings Left Ventricle: Left ventricle is normal in size. Normal global systolic left ventricular function. EF range is estimated at 60 % - 65 %. Left ventricle wall thickness is normal. There are no regional wall motion abnormalities. Grade II Diastolic Dysfunction. Right Ventricle: Normal size right ventricle. Left Atrium: The left atrium is mildly to moderately dilated. Right Atrium: The right atrium is normal in size. Mitral Valve: Mitral valve appears structurally normal. Moderate mitral regurgitation. No mitral valve stenosis. No obvious vegetation is identified on the mitral valve. Aortic Valve: Aortic leaflets are structurally normal. No significant aortic valve regurgitation. There is no aortic stenosis. The aortic valve is trileaflet. No vegetation is identified in the aortic valve. Tricuspid Valve: Tricuspid valve leaflets are structurally normal. Moderate tricuspid regurgitation. Right Ventricular systolic pressure is measured at 50 mmHg. Pulmonary artery pressure moderately increased. Pulmonic Valve: Pulmonic leaflets are normal in appearance and function. No significant pulmonic valve regurgitation is evident. Aorta: Patient: DAWSON CREWS Study Date: 07/04/2018 Page 2 of 3 10:14 AM The aorta is normal. The aortic root size in M-mode measures 2.6 cm. Aorta Measurements AoRoot, MM is 2.6 cm. Pericardium: No pericardial effusion. There is a large left pleural effusion. Exam Details Procedure Ordered: Echo Procedure Status: Routine study Image Quality: Fair Facility Location: Cardiac Echo 1 (No Signature Object) Patient: DAWSON CREWS Study Date: 07/04/2018 Page 3 of 3 10:14 AM [id number]
[2018-07-04] MEDS: NORTRIPTYLINE HCL 25 MG CAP PO SCH (21:04)
[2018-07-04] MEDS: ATORVASTATIN CALCIUM 40 MG TAB PO SCH (21:04)
[2018-07-04] MEDS: FAMOTIDINE 20 MG TAB PO SCH (21:04)
[2018-07-04] MEDS: OLANZapine 2.5 MG TAB PO SCH (21:04)
[2018-07-05] MEDS: oxyCODONE IR 5 MG TAB PO PRN (00:20)
[2018-07-05] MEDS: AMPICILLIN SODIUM 1 GM in NS 50 ML IV SCH ×4 (00:22→18:07)
[2018-07-05] MEDS: LEVOTHYROXINE 75 MCG TAB PO SCH (05:31)
[2018-07-05 05:34] LABS: INR 1.72 (0.83-1.16); PROTIME(PATIENT) 19.4 SEC (12.0-15.0)
[2018-07-05] MEDS ORDERED: WARFARIN SODIUM 1 MG TAB PO SCH (09:00)
[2018-07-05] MEDS ORDERED: ERGOCALCIFEROL 50,000 I.UNIT CAP PO SCH (09:00)
[2018-07-05] MEDS: POLYMYXIN B SULFATE/TMP 10 ML OPHT.BTL EACHEYE SCH (09:57)
--- NOTE | 2018-07-05 10:08 | SOAPPROG ---
SOAP Progress Note Assessment/Plan: Assessment: 87 yo female w/ MMP admitted w/ fatigue/somnolence - found to have enterococcus urine/blood, spoke w/ lab this am and it is looking like ampicillin will cover both, senstitivies further later today -fatigue/somnolence - now w/ known source Ucx + and bacteremia - will follow sensitivities, cont on ampicillin (adjust if needed), echo ok yesterday, family mtg and Ghislaine does want to try antibiotics but does not want anything more aggressive than this (no cpr/intubation/feeding tube/procedures). -enlarging pleural effusion - multifactorial w/ chf, ? amio tox, will not do thoracentesis, increased lasix, sats are great on 1-2L, breathing comfortably -a fib/h/o pe/dvt - restarted coumadin today, recheck inr tomorrow/sat (was letting it drift down w/ GIB and was >3, now low so resume coumadin, recheck h/ h this am. -GIB - saw Dr Ureña- felt source from large HH and likely ulceration - is now on bid PPI and h2 esteban. Cont w/ this, rec'd 1 u prbc last weekend, will watch h/h to make sure stable, not felt a good candidate for more aggressive scoping unless h/h decrease. Rechecking h/h today. -dvt proph - PAS, restarting coumadin -dispo - will see how pt progresses with abx, will consider [place] if improves but want to watch over the weekend and see how she progresses. Have asked for palliative care consult per pt. 07/05/18 10:02 Subjective: Doing ok, is very clear on wishes which are anitbiotics otherwise no heroics Objective: Vital Signs Temp Pulse Resp BP Pulse Ox 36.8 C 88 14 117/63 100 07/05/18 07:35 07/05/18 09:28 07/05/18 09:28 07/05/18 09:28 07/05/18 09:28 Microbiology 07/03/18 11:56 Blood Panel (PCR) - Final Blood Enterococcus Species Laboratory Results 07/03/18 11:56 07/05/18 05:20 07/04/18 07/05/18 07/06/18 05:59 05:59 05:59 Intake Total 1250 Output Total 650 1150 Balance 600 -1150 PT 19.4 SEC (12.0-15.0) H 07/05/18 05:20 INR 1.72 (0.83-1.16) H 07/05/18 05:20 Gen: pleasant, was sleepy but aroused easily, oriented Heent: eomi Neck: soft supple Chest: coarse BS CV: rrr ABd: soft nt nd Ext: wearing PAS, trace edema L>R chronic - Pending Discharge Pending Discharge Within 24 Hours: No ICD10 Worksheet Patient Problems: Problems Problem Status Onset Hypotension Acute Tachycardia Acute Vomiting Acute Dehydration Acute Weakness Acute chronic disease mgmt/transitional care Acute Pneumonia Active
[2018-07-05] MEDS: PANTOPRAZOLE SODIUM 40 MG TAB PO SCH ×2 (10:55→22:18)
[2018-07-05] MEDS: VITAMIN B COMPLEX 1 EA CAP/TAB PO SCH (10:56)
[2018-07-05] MEDS: METOPROLOL TARTRATE 50 MG TAB PO SCH ×2 (10:56→22:17)
[2018-07-05] MEDS: ASCORBIC ACID 500 MG TAB PO SCH ×2 (10:56→22:17)
[2018-07-05] MEDS: DOCUSATE SODIUM 100 MG CAP PO SCH (10:57)
[2018-07-05] MEDS: SALSALATE 500 MG PO SCH ×2 (10:57→22:13)
[2018-07-05] MEDS: DIGOXIN 125 MCG TAB PO SCH (11:01)
[2018-07-05] MEDS: POLYETHYLENE GLYCOL 3350 17 GM PKT PO SCH (11:03)
[2018-07-05] MEDS: NITROFURANTOIN MACROBID 100 MG CAP PO SCH (11:18)
[2018-07-05] MEDS: ALTEPLASE 2 MG VIAL IVP PRN (11:50)
[2018-07-05] MEDS: WARFARIN SODIUM 1 MG TAB PO SCH (16:27)
[2018-07-05] MEDS ORDERED: [UNRECOGNIZED DRUG - OTHER] EACHEYE SCH (21:00)
[2018-07-05] MEDS: FAMOTIDINE 20 MG TAB PO SCH (22:15)
[2018-07-05] MEDS: CALCIUM CARBONATE 500 MG CHEWABLE TAB PO SCH (22:15)
[2018-07-05] MEDS: NORTRIPTYLINE HCL 25 MG CAP PO SCH (22:15)
[2018-07-05] MEDS: OLANZapine 2.5 MG TAB PO SCH (22:16)
[2018-07-05] MEDS: ATORVASTATIN CALCIUM 40 MG TAB PO SCH (22:17)
[2018-07-05] MEDS: AUTOLOGOUS SERUM EACHEYE SCH (22:36)
[2018-07-06] MEDS: AMPICILLIN SODIUM 1 GM in NS 50 ML IV SCH ×4 (00:44→16:30)
[2018-07-06 04:29] LABS: INR 1.5 (0.83-1.16); PROTIME(PATIENT) 17.4 SEC (12.0-15.0)
[2018-07-06] MEDS: LEVOTHYROXINE 75 MCG TAB PO SCH (06:31)
[2018-07-06] MEDS: METOPROLOL TARTRATE 50 MG TAB PO SCH ×2 (08:43→21:22)
[2018-07-06] MEDS: DOCUSATE SODIUM 100 MG CAP PO SCH (08:44)
[2018-07-06] MEDS: SALSALATE 500 MG PO SCH ×2 (08:44→21:21)
[2018-07-06] MEDS: CALCIUM CARBONATE 500 MG CHEWABLE TAB PO SCH ×2 (08:45→21:22)
[2018-07-06] MEDS: PANTOPRAZOLE SODIUM 40 MG TAB PO SCH ×2 (08:45→21:21)
[2018-07-06] MEDS: ASCORBIC ACID 500 MG TAB PO SCH ×2 (08:45→21:22)
[2018-07-06] MEDS: VITAMIN B COMPLEX 1 EA CAP/TAB PO SCH (08:45)
[2018-07-06] MEDS: AUTOLOGOUS SERUM EACHEYE SCH ×2 (09:07→23:50)
[2018-07-06] MEDS: DIGOXIN 125 MCG TAB PO SCH (10:24)
[2018-07-06] MEDS: POLYMYXIN B SULFATE/TMP 10 ML OPHT.BTL EACHEYE SCH (10:25)
--- NOTE | 2018-07-06 10:31 | SOAPPROG ---
SOAP Progress Note Assessment/Plan: Assessment: Urosepsis witih enterococcus. Improving on antibiotics. Plan: Continue IV antibiotics. Consider repeat blood cultures in AM. Encourage PT/OT 07/06/18 10:30 Subjective: Having some coordination issues. Feeling better, Appetite OK. Some hip pain in AM before getting up. Objective: Vital Signs Temp Pulse Resp BP Pulse Ox 97.9 F 85 16 118/60 98 07/06/18 07:35 07/06/18 07:35 07/06/18 07:35 07/06/18 07:35 07/06/18 07:35 Microbiology 07/03/18 11:56 Blood Panel (PCR) - Final Blood Enterococcus Species Laboratory Results 07/05/18 13:50 07/06/18 04:15 07/05/18 07/06/18 07/07/18 05:59 05:59 05:59 Intake Total 300 120 Output Total 1150 1200 100 Balance -1150 -900 20 PT 17.4 SEC (12.0-15.0) H 07/06/18 04:15 INR 1.50 (0.83-1.16) H 07/06/18 04:15 Lungs with diminished breath sounds in L base. COR RRR. VS stable. ICD10 Worksheet Patient Problems: Problems Problem Status Onset Weakness Acute Pneumonia Active Dehydration Acute Hypotension Acute Tachycardia Acute Vomiting Acute chronic disease mgmt/transitional care Acute
[2018-07-06] MEDS: ALTEPLASE 2 MG VIAL IVP PRN ×2 (12:33→15:30)
[2018-07-06] MEDS: WARFARIN SODIUM 1 MG TAB PO SCH (15:35)
[2018-07-06] MEDS: Propylene Glycol/Peg 400 [Systane 0.3-0.4% Eye Drops] EACHEYE PRN (16:03)
[2018-07-06] MEDS: FAMOTIDINE 20 MG TAB PO SCH (21:21)
[2018-07-06] MEDS: ATORVASTATIN CALCIUM 40 MG TAB PO SCH (21:22)
[2018-07-06] MEDS: OLANZapine 2.5 MG TAB PO SCH (21:23)
[2018-07-06] MEDS: NORTRIPTYLINE HCL 25 MG CAP PO SCH (21:23)
[2018-07-07 05:20] LABS: INR 1.53 (0.83-1.16); PROTIME(PATIENT) 17.7 SEC (12.0-15.0)
[2018-07-07] MEDS: LEVOTHYROXINE 75 MCG TAB PO SCH (05:38)
[2018-07-07] MEDS: POLYETHYLENE GLYCOL 3350 17 GM PKT PO SCH (08:48)
[2018-07-07] MEDS: PANTOPRAZOLE SODIUM 40 MG TAB PO SCH ×2 (08:49→20:32)
[2018-07-07] MEDS: VITAMIN B COMPLEX 1 EA CAP/TAB PO SCH (08:49)
[2018-07-07] MEDS: CALCIUM CARBONATE 500 MG CHEWABLE TAB PO SCH ×2 (08:49→20:31)
[2018-07-07] MEDS: DIGOXIN 125 MCG TAB PO SCH (08:49)
[2018-07-07] MEDS: FUROSEMIDE 20 MG TAB PO SCH (08:50)
[2018-07-07] MEDS: DOCUSATE SODIUM 100 MG CAP PO SCH (08:50)
[2018-07-07] MEDS: SALSALATE 500 MG PO SCH ×2 (08:50→20:32)
[2018-07-07] MEDS: ASCORBIC ACID 500 MG TAB PO SCH ×2 (08:50→20:32)
[2018-07-07] MEDS: AUTOLOGOUS SERUM EACHEYE SCH ×2 (08:51→20:46)
[2018-07-07] MEDS: POLYMYXIN B SULFATE/TMP 10 ML OPHT.BTL EACHEYE SCH (08:54)
[2018-07-07] MEDS: Propylene Glycol/Peg 400 [Systane 0.3-0.4% Eye Drops] EACHEYE PRN (08:55)
--- NOTE | 2018-07-07 10:22 | SOAPPROG ---
SOAP Progress Note Assessment/Plan: Assessment: 87 yo female w/ MMP admitted w/ fatigue/somnolence - found to have enterococcus urine/blood, spoke w/ lab this am and it is looking like ampicillin will cover both, senstitivies further later today -fatigue/somnolence - now w/ known source Ucx + and bacteremia - will follow sensitivities, cont on ampicillin (adjust if needed), echo ok yesterday, family mtg and Ghislaine does want to try antibiotics but does not want anything more aggressive than this (no cpr/intubation/feeding tube/procedures). -enlarging pleural effusion - multifactorial w/ chf, ? amio tox, will not do thoracentesis, increased lasix, sats are great on 1-2L, breathing comfortably -a fib/h/o pe/dvt - restarted coumadin today, recheck inr tomorrow/sat (was letting it drift down w/ GIB and was >3, now low so resume coumadin, recheck h/ h this am. -GIB - saw Dr Ureña- felt source from large HH and likely ulceration - is now on bid PPI and h2 esteban. Cont w/ this, rec'd 1 u prbc last weekend, will watch h/h to make sure stable, not felt a good candidate for more aggressive scoping unless h/h decrease. Rechecking h/h today. -dvt proph - PAS, restarting coumadin -dispo - will see how pt progresses with abx, will consider [facility] if improves but want to watch over the weekend and see how she progresses. Have asked for palliative care consult per pt. 07/05/18 10:02 07/07/18 10:18 87 yo female w/ enterococcus urosepsis doing much better - -PICC stopped working yesterday evening, will have new PICC placed today. Rechecking Bcx and if neg x 48 hours will be able to d/c. She is feeling so much better now. -a fib - holding amiodarone, cont on metoprolol and dig. Shakiness is much less now w/o amiodarone. Will discuss w/ cardiology w/ concerns of amio tox w/ lungs. She has been able to be controlled w/o it this admission. -h/o GIB cont on PPI and H2, h/h has been stable. -dvt proph - h/o pe/dvt - coumadin was held 2/ GIB but now back on board, INR subtherapeutic still, covering with lovenox until therapeutic again. -dispo - pt is getting much better - wants to cont to work w/ PT/OT and would prefer to go home w/ HH over going to [facility] if possible. She will be here for likely 2 more days to make sure repeat cx are neg, so will have her cont to work w/ PT/OT to see if strong enough by Sat to go home vs [facility]. Subjective: Feeling better and stronger! Objective: Vital Signs Temp Pulse Resp BP Pulse Ox 36.5 C 93 15 104/61 95 07/07/18 08:00 07/07/18 08:00 07/07/18 08:00 07/07/18 08:00 07/07/18 08:00 Microbiology 07/03/18 11:56 Blood Culture - Final Blood Enterococcus Faecalis Blood Panel (PCR) - Final Enterococcus Species Laboratory Results 07/05/18 13:50 07/06/18 04:15 07/06/18 07/07/18 07/08/18 05:59 05:59 05:59 Intake Total 300 420 Output Total 1200 500 Balance -900 -80 PT 17.7 SEC (12.0-15.0) H 07/07/18 04:43 INR 1.53 (0.83-1.16) H 07/07/18 04:43 Gen: A&O, pleasant, brighter affect today Heent: eomi Chest: coarse bs but moving air much better CV: rrr Abd: soft nt nd Ext: L foot in air boot, trace edema ble Neuro: alert oriented less tremulous - Pending Discharge Pending Discharge Within 24 Hours: No ICD10 Worksheet Patient Problems: Problems Problem Status Onset Hypotension Acute Tachycardia Acute Vomiting Acute Dehydration Acute Weakness Acute chronic disease mgmt/transitional care Acute Pneumonia Active
[2018-07-07] MEDS ORDERED: METOPROLOL TARTRATE 50 MG TAB PO SCH (10:25)
[2018-07-07] MEDS: ENOXAPARIN 30 MG/0.3 ML SYR SC SCH (10:47)
[2018-07-07] MEDS: METOPROLOL TARTRATE 50 MG TAB PO SCH ×3 (10:49→20:32)
--- NOTE | 2018-07-07 13:59 | ASMTCMCOM ---
CM Note CM Note Notes: Per hospitalist's note, pt will likely be inpatient until Saturday. [facility] insurance [facility] and updated therapy notes were sent; PT still recommending SNF as of 07/06/18. Per hospitalist, pt is hoping to regain enough strength by Saturday to discharge with home health. CM spoke with pt's dtr who stated that pt and her are already receiving unskilled care from [facility], and dtr seemed doubtful that home was a safe plan for discharge. Dtr to contact hospitalist. No referral sent yet to [facility] agencies. CM to follow. D/C Plan: [facility] Date Signed: 07/07/2018 12:21 PM Electronically Signed By:Kim Emanuel
[2018-07-07] MEDS ORDERED: IOPAMIDOL (ISOVUE-300) 100 ML BTL ONE (14:31)
--- NOTE | 2018-07-07 15:06 | PDHPUP ---
History & Physical Update H&P update statement: This history and physical update is based on an assessment of the patient which was completed after admission or registration (within 24 hours), but prior to the surgery/procedure. RUE edema, need for fpc central access for ABX; Plan for PICC with angiography and possible angioplasty H&P update: H&P reviewed & patient examined, no change in patient's condition since H&P completed
--- NOTE | 2018-07-07 15:07 | PDRADPN ---
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 5 Fr DL Power PICC placement. Inf/Abcess present in the surg proc area at time of surgery?: No
[2018-07-07] MEDS: WARFARIN SODIUM 1 MG TAB PO SCH (15:53)
[2018-07-07] MEDS: NORTRIPTYLINE HCL 25 MG CAP PO SCH (20:31)
[2018-07-07] MEDS: OLANZapine 2.5 MG TAB PO SCH (20:31)
[2018-07-07] MEDS: ATORVASTATIN CALCIUM 40 MG TAB PO SCH (20:31)
[2018-07-07] MEDS: FAMOTIDINE 20 MG TAB PO SCH (20:33)
[2018-07-08] MEDS: LEVOTHYROXINE 75 MCG TAB PO SCH (05:15)
[2018-07-08] MEDS: POLYETHYLENE GLYCOL 3350 17 GM PKT PO SCH (08:02)
[2018-07-08] MEDS: CALCIUM CARBONATE 500 MG CHEWABLE TAB PO SCH ×2 (08:02→19:54)
[2018-07-08] MEDS: ASCORBIC ACID 500 MG TAB PO SCH ×2 (08:03→19:54)
[2018-07-08] MEDS: VITAMIN B COMPLEX 1 EA CAP/TAB PO SCH (08:03)
[2018-07-08] MEDS: DOCUSATE SODIUM 100 MG CAP PO SCH (08:03)
[2018-07-08] MEDS: PANTOPRAZOLE SODIUM 40 MG TAB PO SCH ×2 (08:03→19:55)
[2018-07-08] MEDS: SALSALATE 500 MG PO SCH ×2 (08:04→19:54)
[2018-07-08] MEDS: METOPROLOL TARTRATE 50 MG TAB PO SCH ×2 (08:05→19:54)
[2018-07-08] MEDS: ENOXAPARIN 30 MG/0.3 ML SYR SC SCH (08:05)
[2018-07-08] MEDS: POLYMYXIN B SULFATE/TMP 10 ML OPHT.BTL EACHEYE SCH (08:11)
--- NOTE | 2018-07-08 08:39 | SOAPPROG ---
SOAP Progress Note Assessment/Plan: Assessment: Plan: 07/08/18 08:37 subtherapeutic-INR, restarted coumadin, INR pending, on Lovenox probable UGIB--on PPI/H2 CBC pending pleural effusion--hopefully it will improve with increased diuresis h/o rapid a fib, amio held, metoprolol reduced, mildly tachy around 100-105 at bedside today--follow + blood cultures--repeat cultures pending. When confirmed negative either Home with [facility] or [facility] rehab, likely tomorrow Subjective: Ghislaine is feeling better. Some SOB at night. No cough. She feels good now. No CP. Appetite is good. Objective: Vital Signs Temp Pulse Resp BP Pulse Ox 36.3 C 97 18 124/69 H 97 07/08/18 07:55 07/08/18 07:55 07/08/18 07:55 07/08/18 07:55 07/08/18 07:55 Laboratory Results 07/05/18 13:50 07/06/18 04:15 07/07/18 07/08/18 07/09/18 05:59 05:59 05:59 Intake Total 420 350 Output Total 500 1100 Balance -80 -750 PT 17.7 SEC (12.0-15.0) H 07/07/18 04:43 INR 1.53 (0.83-1.16) H 07/07/18 04:43 Gen: Bright Lungs: diminished BS in bases, dry cough. Heart: mildly tachycardic Abd + bs soft LE's 1-2+ edema UOP is good INR and Hgb pending ICD10 Worksheet Patient Problems: Problems Problem Status Onset Weakness Acute Pneumonia Active Dehydration Acute Hypotension Acute Tachycardia Acute Vomiting Acute chronic disease [facility]/transitional care Acute
[2018-07-08] MEDS: AUTOLOGOUS SERUM EACHEYE SCH ×2 (08:53→20:00)
[2018-07-08 09:16] LABS: PLATELET COUNT 182 10^3/uL (150-400)
[2018-07-08] MEDS: DIGOXIN 125 MCG TAB PO SCH (10:27)
[2018-07-08] MEDS: WARFARIN SODIUM 1 MG TAB PO SCH (16:23)
[2018-07-08] MEDS: OLANZapine 2.5 MG TAB PO SCH (19:53)
[2018-07-08] MEDS: NORTRIPTYLINE HCL 25 MG CAP PO SCH (19:53)
[2018-07-08] MEDS: ATORVASTATIN CALCIUM 40 MG TAB PO SCH (19:54)
[2018-07-08] MEDS: FAMOTIDINE 20 MG TAB PO SCH (19:55)
[2018-07-08] MEDS: Propylene Glycol/Peg 400 [Systane 0.3-0.4% Eye Drops] EACHEYE PRN (20:02)
[2018-07-09] MEDS: LEVOTHYROXINE 75 MCG TAB PO SCH (04:06)
[2018-07-09 04:31] LABS: PLATELET COUNT 218 10^3/uL (150-400)
[2018-07-09 04:33] LABS: INR 1.54 (0.83-1.16); PROTIME(PATIENT) 17.8 SEC (12.0-15.0)
[2018-07-09] MEDS: FUROSEMIDE 20 MG TAB PO SCH (07:39)
[2018-07-09] MEDS: DOCUSATE SODIUM 100 MG CAP PO SCH (07:52)
[2018-07-09] MEDS: ENOXAPARIN 30 MG/0.3 ML SYR SC SCH (08:55)
[2018-07-09] MEDS: ASCORBIC ACID 500 MG TAB PO SCH (08:59)
[2018-07-09] MEDS: METOPROLOL TARTRATE 50 MG TAB PO SCH (08:59)
[2018-07-09] MEDS: SALSALATE 500 MG PO SCH (09:00)
[2018-07-09] MEDS: DIGOXIN 125 MCG TAB PO SCH (09:01)
[2018-07-09] MEDS: PANTOPRAZOLE SODIUM 40 MG TAB PO SCH (09:01)
[2018-07-09] MEDS: VITAMIN B COMPLEX 1 EA CAP/TAB PO SCH (09:01)
[2018-07-09] MEDS: CALCIUM CARBONATE 500 MG CHEWABLE TAB PO SCH (09:04)
[2018-07-09] MEDS: AUTOLOGOUS SERUM EACHEYE SCH (10:14)
[2018-07-09] MEDS: POLYMYXIN B SULFATE/TMP 10 ML OPHT.BTL EACHEYE SCH (10:53)
--- NOTE | 2018-07-09 11:44 | SOAPPROG ---
SOAP Progress Note Assessment/Plan: Assessment: Plan: 07/08/18 08:37 subtherapeutic-INR, restarted coumadin, INR pending, on Lovenox probable UGIB--on PPI/H2 CBC pending pleural effusion--hopefully it will improve with increased diuresis h/o rapid a fib, amio held, metoprolol reduced, mildly tachy around 100-105 at bedside today--follow + blood cultures--repeat cultures pending. When confirmed negative either Home with [facility] or [facility] rehab, likely tomorrow 07/09/18 11:44 weakness--SNF rehab today bacteremia- complete 14 days of amox/amp/pcn in total for entercoccus F pleural effusion--slow reduction with diuretics low albumin--encourage po food h/o rapid a fib--doing ok with lower meds currently anticoag--cautiously watch INR rise. Goal 1.8-2.2 anemia--acute on chronic stable--follow Subjective: Ghislaine feels she is doing ok. No new symptoms. Her appetite is ok in the morning, but is minimal later in the day. She would like to go home, but dtr Hill feels her management would be far safer at [facility]. Objective: Vital Signs Temp Pulse Resp BP Pulse Ox 36.3 C 97 18 128/67 H 94 07/09/18 07:49 07/09/18 07:49 07/09/18 07:49 07/09/18 07:49 07/09/18 07:49 Microbiology 07/03/18 11:52 Blood Culture - Final Blood Laboratory Results 07/09/18 04:00 07/09/18 04:00 07/08/18 07/09/18 07/10/18 05:59 05:59 05:59 Intake Total 350 350 Output Total 1100 600 Balance -750 -250 PT 17.8 SEC (12.0-15.0) H 07/09/18 04:00 INR 1.54 (0.83-1.16) H 07/09/18 04:00 GEN: pleasant, pale Lungs: diminished BS, dry cough Heart: regular tachy, no murmur Abd + bs soft LE's 1-2 edema--stable Albumin 1.6 Ca 5.5 Hgb 8.1 INR 1.54 ICD10 Worksheet Patient Problems: Problems Problem Status Onset Weakness Acute Pneumonia Active Dehydration Acute Hypotension Acute Tachycardia Acute Vomiting Acute chronic disease mgmt/transitional care Acute
--- NOTE | 2018-07-09 11:59 | PDIAF ---
- Diagnosis Diagnosis: enterococcus bacteremia Code Status: Do Not Resuscitate - Medication Management Press Puller Antibiotics: ampicillin 500 mg TID until 07/18/2018 Fdc Antibiotic Stop Date: 07/18/18 Discharge Medications: electronically signed and located in the Home Medication List. PICC Care - Routine: N/A - Orders Services needed: Registered Nurse, Physical Therapy, Occupational Therapy, Speech Language Pathologist Diet Recommendation: no restrictions on diet Diet Texture: Regular Texture Diet Tube feeding: n/a Weigh Patient: weekly Wiley: Yes - Labs/Radiology BMP Date: 07/14/18 CBC w/diff Date: 07/21/18 - Follow Up Care Current Providers and Referrals: Patient,NotPresent [Unknown] - As per Instructions Agustina Ralph MD [Primary Care Provider] - 3 days of d/c SNF/Rehab (f/u after d /c from SNF)
[2018-07-09 12:14] VITALS: BP 116/60
--- NOTE | 2018-07-09 14:55 | ASMTLACE ---
GERTRUDEE Length of stay for Answers: 7-13 days current admission Acuity / Level of Answers: Yes Care: Did the patient have an inpatient admission? Comorbidities - select Answers: Congestive heart failure all that apply Coronary Artery Disease Opioid dependence / Chronic pain Other Notes: AFib; HTN; Hypothyroid # of Emergency department Answers: 1-2 visits in the last 6 months Score: 18 Date Signed: 07/09/2018 02:54 PM Electronically Signed By:Kate Santos
--- NOTE | 2018-07-09 15:09 | ASMTCMCOM ---
CM Note CM Note Notes: Met with Pt and discussed Pt with NAVEEN Grijalva. Pt has been discharge and it is recommended that she go to a SNF. [facility] has accepted and updates w/ meds sheet sent to [facility]. arrangements made by [facility] for stretcher pickup at 430p, RN aware, also, electric w/c will be picked up tonight or tomorrow by [facility]. PCS form filled out for transport.. CM available for needs. PLAN: Discharge to [facility] w/ pickup at 1630. Date Signed: 07/09/2018 03:08 PM Electronically Signed By:Kate Santos
[2018-07-09] MEDS: WARFARIN SODIUM 1 MG TAB PO SCH (15:41)
[2018-07-09] MEDS ORDERED: AMPICILLIN TRIHYDRATE 500 MG CAP PO SCH ×2 (16:00)
--- NOTE | 2018-07-09 17:52 | ASDISCHSUM ---
Discharge Information Plan Status:Has needs-TBD Medically Cleared to Leave: Discharge Date:07/09/2018 04:30 PM CM D/C Disposition:Group Home Facility ADT D/C Disposition:Group Home Facility Projected Discharge Date:07/04/2018 11:00 AM Transportation at D/C: Discharge Delay Reason: Follow-Up Date:07/04/2018 11:00 AM Discharge Slot: Final Diagnosis: Placement Information Referral Type:*Prison/SNF Referral ID:[id number] Provider Name:[facility] Address 1:[address] Address 2: City:[place] Selection Factors: State:[place] Patient Contact Information Contact Name:NOEL Relationship: Address:[address] City:[place] Alternate Phone: State/Zip Code:[place] [address] Email: Financial Information Financial Class:Medicare Advantage Plans Primary Plan Desc:DEBI MEDICARE ADV Primary Plan Number:[id number] Secondary Plan Desc: Secondary Plan Number: Assessment Information LACE LACE Length of stay for Answers: 7-13 days current admission Acuity / Level of Answers: Yes Care: Did the patient have an inpatient admission? Comorbidities - select Answers: Congestive heart failure all that apply Coronary Artery Disease Opioid dependence / Chronic pain Other Notes: AFib; HTN; Hypothyroid # of Emergency department Answers: 1-2 visits in the last 6 months Score: 18 Date Signed: 07/09/2018 02:54 PM Electronically Signed By:Kate Santos [facility] CM Progress Note CM Note CM Note Notes: Pt is a 87 y/o female admitted for weakness. Therapies have been ordered and awaiting recommendations. Needs are TBD at this time. CM to follow. Plan: TBD Date Signed: 07/03/2018 11:01 AM Electronically Signed By:QASIM Sanabria [facility] CM Progress Note CM Note CM Note Notes: CM met w/ pts daughter Geovanna Blake for dispo planning. Therapies are both recommending SNF. Geovanna Blake reports that she would like pt to go to [facility] if she needed to go to SNF. Referral sent to [facility] and asked Marg[facility] to start getting auth. CM to follow. Date Signed: 07/03/2018 04:47 PM Electronically Signed By:QASIM Sanabria [facility] CM Progress Note CM Note CM Note Notes: CM spoke to Dang w/ palliative. Pt will most likely won't d/c until Saturday. [facility] have accepted and started getting auth. It seems like Geovanna Blake is leaning more towards having pt going to [facility]. Palliative is involved and following this case. Geovanna Blake is not available from 12pm-5pm today because she will be at a . CM to follow. Plan: [facility] Date Signed: 07/04/2018 12:07 PM Electronically Signed By:QASIM Sanabria [facility] CM Progress Note CM Note CM Note Notes: Per hospitalist's note, pt will likely be inpatient until Saturday. [facility] has received insurance authorization and updated therapy notes were sent; PT still recommending SNF as of 07/06/18. Per hospitalist, pt is hoping to regain enough strength by Saturday to discharge with home health. CM spoke with pt's dtr who stated that pt and her are already receiving unskilled care from [facility], and dtr seemed doubtful that home was a safe plan for discharge. Dtr to contact hospitalist. No referral sent yet to [facility] agencies. CM to follow. D/C Plan: [facility] Date Signed: 07/07/2018 12:21 PM Electronically Signed By:Kim Emanuel [facility] CM Progress Note CM Note CM Note Notes: Met with Pt and discussed Pt with NAVEEN Grijalva. Pt has been discharge and it is recommended that she go to a SNF. [facility] has accepted and updates w/ meds sheet sent to [facility]. arrangements made by [facility] for stretcher pickup at 430p, RN aware, also, electric w/c will be picked up tonight or tomorrow by [facility]. PCS form filled out for transport.. CM available for needs. PLAN: Discharge to [facility] w/ pickup at 1630. Date Signed: 07/09/2018 03:08 PM Electronically Signed By:Kate Santos Intervention Information Intervention Type:*Incorrect Registration Date of Service:07/03/2018 10:24 AM Patient Type:Inpatient Staff Member:Minal Fajardo Hours: Discipline: Severity: Comment: Intervention Type:*IM-Signed Date of Service:07/08/2018 01:53 PM Patient Type:Inpatient Staff Member:Fatou Balbuena Hours: Discipline: Severity: Comment:
--- NOTE | 2018-07-14 14:34 | GDS ---
[f rep st] DISCHARGE SUMMARY REASON FOR ADMISSION: Altered mental status, acute on chronic anemia, post- polio syndrome, large pleural effusion, valvular heart disease, Enterococcus bacteremia and enterococcus urinary tract infection. HOSPITAL COURSE: The patient was admitted due to weakness and confusion. She was found to have a positive urine culture and started on antibiotic coverage. The initial call was that she had positive Enterococcus in her blood culture as well. For this reason, ampicillin was added. Ultimately, sensitivities prove that ampicillin was a reasonable choice. She had repeat blood cultures performed, which were negative. She has been moderately anemic, but stable. Gastroenterology was consulted. The patient decided she was not up for more aggressive workup when it came to the thought of an upper and lower endoscopy. Enhanced coverage for gastrointestinal bleeding was added with b.i.d. PPI therapy plus nighttime H2 esteban. She was found to have a large pleural effusion. She elected to not have this drained, but rather have her diuretics increased. Bit by bit, she made improvement. Treating her infection seemed to improve her overall clarity. She did have significant baseline weakness, which did not improve all that much. For this reason, she was transferred to [facility] for further tune-up. She will have outpatient followup with Dr. Ralph in a couple of days after discharge from [facility]. /[id number]/MODL MTDD
[2018-12-13] MEDS ORDERED: Denosumab [Prolia] 60 MG SQ SCH (09:00)
== END 2018-07-09 16:30 | DRG 982 ==
LOC: EDUNIT# → F3E 20:34
PROVIDERS: ADMIT Internal Medicine; ATTEND Internal Medicine
PROC: 02HV33Z Insertion of Infusion Device into Superior Vena Cava, Percutaneous Approach (ICD-10-PCS; 2018-07-03)
PROC: 02HV33Z Insertion of Infusion Device into Superior Vena Cava, Percutaneous Approach (ICD-10-PCS; principal; 2018-07-07)
PROC: 05753ZZ Dilation of Right Subclavian Vein, Percutaneous Approach (ICD-10-PCS; principal; 2018-07-07)
DX: N39.0 Urinary tract infection, site not specified (principal); B95.2 Enterococcus as the cause of diseases classified elsewhere; R78.81 Bacteremia; I87.1 Compression of vein; J90 Pleural effusion, not elsewhere classified; R44.3 Hallucinations, unspecified; I48.2 Chronic atrial fibrillation; I10 Essential (primary) hypertension; F32.9 Major depressive disorder, single episode, unspecified; E03.9 Hypothyroidism, unspecified; I25.10 Atherosclerotic heart disease of native coronary artery without angina pectoris; E78.5 Hyperlipidemia, unspecified; M81.0 Age-related osteoporosis without current pathological fracture; G14 Postpolio syndrome; G89.29 Other chronic pain; J84.10 Pulmonary fibrosis, unspecified; Z79.01 Long term (current) use of anticoagulants; Z99.3 Dependence on wheelchair; Z66 Do not resuscitate; Z86.711 Personal history of pulmonary embolism
CPT/HCPCS: 97110-GP; 97112-GP; 97162-GP; 97166-GO; 97530-GO; 97530-GP; 97535-GO; C1725; C1751; C1769; G0378; J0290; J1650; J2997; Q9967